=== PATIENT | male | born 1955 | race Caucasian/White ===

== ENCOUNTER 2017-04-06 23:14 | Emergency (ER) | payer MEDICARE, MEDICAID ==
[2017-04-06] MEDS ORDERED: Ondansetron INJ* 2 MG/ML VIAL IV ONE (23:30)
[2017-04-06] MEDS ORDERED: NS 0.9% 1000 ML* 1,000 ML IV ONE (23:30)
--- NOTE | 2017-04-06 23:38 | ED ---
blaire Mensah Timothy, scribed for Julien Cohen MD on 04/06/17 at 2330 . Abdominal Pain/Male - HPI Summary HPI Summary: Kelvin Bush is a 61 yo male presenting to [facility] with 3/10 abd pain with nausea and vomiting 2x since 0 tonight. He denies any diarrhea. He states he had meatloaf for dinner. His MHx includes HTN, depression, anxiety. - History of Current Complaint Chief Complaint: EDAbdPain Stated Complaint: VOMITING Time Seen by Provider: 04/06/17 23:27 Hx Obtained From: Patient Onset/Duration: Sudden Onset, Lasting Hours, Still Present Timing: Constant Severity Initially: Moderate Severity Currently: Moderate Pain Intensity: 3 Pain Scale Used: 0-10 Numeric Location: Diffuse Radiates: No Associated Signs And Symptoms: Positive: Nausea, Vomiting - Allergies/Home Medications Allergies/Adverse Reactions: Allergies Allergy/AdvReac Type Severity Reaction Status Date / Time Dust Mite Extract Allergy Unknown Unknown Verified 02/23/16 17:03 Reaction Details Ondansetron [From Zofran] Allergy Unknown Verified 06/22/16 14:43 Reaction Details PMH/Surg Hx/FS Hx/Imm Hx Cardiovascular History: Reports: Hx Hypertension Psychiatric History: Reports: Hx Anxiety, Hx Depression Infectious Disease History: No Infectious Disease History: Denies: Traveled Outside the [place] in Last 30 Days - Family History Known Family History: Positive: Cardiac Disease, Hypertension Negative: Diabetes - Social History Alcohol Use: None Hx Substance Use: No Substance Use Type: Reports: None Hx Tobacco Use: No Smoking Status (MU): Never Smoked Tobacco Review of Systems Constitutional: Negative Eyes: Negative ENT: Negative Cardiovascular: Negative Respiratory: Negative Positive: Abdominal Pain, Vomiting, Nausea Genitourinary: Negative Musculoskeletal: Negative Skin: Negative Neurological: Negative Psychological: Normal All Other Systems Reviewed And Are Negative: Yes Physical Exam Triage Information Reviewed: Yes Vital Signs On Initial Exam: Initial Vitals Temp Pulse Resp BP Pulse Ox 98.8 F 75 18 133/69 95 04/06/17 23:21 04/06/17 23:21 04/06/17 23:21 04/06/17 23:21 04/06/17 23:21 Vital Signs Reviewed: Yes Appearance: Positive: Well-Appearing, No Pain Distress Skin: Positive: Warm Head/Face: Positive: Normal Head/Face Inspection ENT: Positive: Hearing grossly normal Neck: Positive: Supple Respiratory/Lung Sounds: Positive: Clear to Auscultation, Breath Sounds Present Cardiovascular: Positive: RRR Abdomen Description: Positive: Nontender, Soft. Negative: Distended, Guarding Bowel Sounds: Positive: Present Neurological: Positive: Alert, Oriented to Person Place, Time Psychiatric: Positive: Affect/Mood Appropriate - Ne Coma Scale Coma Scale Total: 15 Diagnostics - Vital Signs Vital Signs Temp Pulse Resp BP Pulse Ox 04/06/17 23:23 98.8 F 75 18 133/69 95 04/06/17 23:21 98.8 F 75 18 133/69 95 - Laboratory Result Diagrams: 04/06/17 23:45 04/06/17 23:45 Lab Statement: Any lab studies that have been ordered have been reviewed, and results considered in the medical decision making process. Re-Evaluation - Re-Evaluation First Eval Change: Improved Abdominal Pain Fem Course/Dx - Course Assessment/Plan: Kelvin Bush is a 61 yo male presenting to [facility] with 3/10 abd pain, N/Vx2 since 2229 today. Pt medication list reviewed this visit. After clinical examination and review of his lab studies, he will be discharged home with nausea and abdominal pain with appropriate instuctions. - Diagnoses Differential Diagnosis/HQI/PQRI: Other - nausea, abd pain Provider Diagnoses: Nausea, Abdominal pain Discharge - Discharge Plan Condition: Stable Disposition: HOME Patient Education Materials: Acute Nausea and Vomiting (ED), Abdominal Pain (ED ) Referrals: Jeanmarie Nesbitt MD [Primary Care Provider] - 2 Days Additional Instructions: Please follow up with your primary care physician regarding your visit to the emergency department today. Return to the emergency department with any new 0or recurring symptoms. The documentation as recorded by the blaire hilliard Timothy accurately reflects the service I personally performed and the decisions made by me, Julien Cohen MD.
[2017-04-06 23:54] LABS: Hematocrit 40 % (42-52); Hemoglobin 13.7 g/dl (14.0-18.0); Mean Corpuscular HGB Conc 34 g/dl (31-36); Mean Corpuscular Hemoglobin 31 pg (27-31); Mean Corpuscular Volume 91 fL (80-94); Mean Platelet Volume 7 um3 (7.4-10.4); Red Blood Count 4.41 10^6/ul (4.0-5.4); Red Cell Distribution Width 15 % (10.5-15); White Blood Count 7.7 10^3/ul (3.5-10.8)
[2017-04-07 00:09] LABS: ALT 14 U/L (7-52); Albumin 3.7 g/dL (3.2-5.2); Alkaline Phosphatase 98 U/L (34-104); BUN/Creatinine Ratio 23.8 (8-20); Blood Urea Nitrogen 20 mg/dL (6-24); C Reactive Protein 12.94 mg/L (< 5.00); CO2 Carbon Dioxide 26 mmol/L (22-32); Calcium 8.9 mg/dL (8.6-10.3); Chloride 103 mmol/L (101-111); EGFR African American 119.1 (>60); EGFR Non-African American 92.6 (>60); Globulin 2.8 g/dL (2-4); Glucose 116 mg/dL (70-100); Sodium 136 mmol/L (133-145); Total Protein 6.5 g/dL (6.4-8.9)
[2017-04-07 00:13] LABS: Anion Gap 7 mmol/L (2-11)
[2017-04-07 00:38] VITALS: BP 126/50
== END 2017-04-07 00:37 | disposition home or self-care (01) ==
LOC: ED 23:14
DX: R10.84 Generalized abdominal pain (principal); R11.2 Nausea with vomiting, unspecified; I10 Essential (primary) hypertension; F41.9 Anxiety disorder, unspecified; F32.9 Major depressive disorder, single episode, unspecified; Z88.8 Allergy status to other drugs, medicaments and biological substances
CPT/HCPCS: 36415; 80053; 85025; 86140; 96361; 96374; 99283; J2405

== ENCOUNTER 2017-10-01 15:23 | Inpatient (IN) | payer MEDICARE, MEDICAID ==
[2017-10-01] MEDS ORDERED: NS 0.9% 1000 ML* 1,000 ML IV ONE (15:53)
[2017-10-01] MEDS ORDERED: HYDROcodone/ACETAMIN 5-325 MG* 1 TAB PO ONE (16:39)
[2017-10-01 16:55] LABS: ABS Basophils 0 10^3/ul (0-0.2); ABS Eosinophils 0 10^3/ul (0-0.6); ABS Lymphocytes 0.6 10^3/ul (1.0-4.8); ABS Monocytes 0.9 10^3/ul (0-0.8); ABS Neutrophils 12.3 10^3/ul (1.5-7.7); ABS Nucleated RBC 0 10^3/ul; Eosinophil % 0.2 % (0-6); Hematocrit 39 % (42-52); Hemoglobin 13.2 g/dl (14.0-18.0); Lymphocyte % 4.4 % (25-47); Mean Corpuscular HGB Conc 34 g/dl (31-36); Mean Corpuscular Hemoglobin 30 pg (27-31); Mean Corpuscular Volume 89 fL (80-94); Mean Platelet Volume 6 um3 (7.4-10.4); Nucleated Red Blood Cells % 0; Platelet Count 311 10^3/ul (150-450); Red Blood Count 4.44 10^6/ul (4.0-5.4); Red Cell Distribution Width 14 % (10.5-15); White Blood Count 13.9 10^3/ul (3.5-10.8)
[2017-10-01 17:04] LABS: INR 1.1 (0.77-1.02)
[2017-10-01 17:21] LABS: EGFR Non-African American 103.6 (>60)
--- NOTE | 2017-10-01 17:50 | RAD ---
Indication: Pain. Unable to extend knee. Quadriceps tear. Comparison: None. Technique: RIGHT knee: AP, lateral, crosstable lateral views RIGHT knee. Report: Anterior soft tissue swelling with ill-definition along the anterior margin of the extensor mechanism both above and below the patella. Small joint effusion. Negative for fracture or malalignment. Osteoarthritis most prominent at the patellofemoral joint moderately severe. IMPRESSION: 1. Negative for fracture. 2. Soft tissue swelling most prominent along the anterior aspect. 3. Small joint effusion. 4. 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
--- NOTE | 2017-10-01 17:53 | RAD ---
Indication: Fall. RIGHT knee injury. Comparison: August 25, 2014 Technique: Upright AP 1636 hours Report: Clear lungs and pleural spaces. Negative for pneumothorax. Upper normal heart size. Unremarkable central pulmonary vasculature and mediastinal contours. IMPRESSION: No radiographic evidence for traumatic thoracic injury or acute intrathoracic disease.
[2017-10-01] MEDS ORDERED: Prochlorperazine TAB* 10 MG PO PRN (18:16)
[2017-10-01] MEDS ORDERED: Acetaminophen TAB* 325 MG PO PRN (18:16)
[2017-10-01] MEDS ORDERED: Ondansetron ODT TAB* 4 MG PO PRN (18:16)
[2017-10-01] MEDS ORDERED: Docusate CAP* 100 MG PO PRN (18:29)
[2017-10-01] MEDS ORDERED: Senna TAB PO PRN (18:29)
--- NOTE | 2017-10-01 19:12 | ED ---
Phil Mensah Stephanie, scribed for Gasper Mckinley MD on 10/01/17 at 1703 . Lower Extremity - HPI Summary HPI Summary: The pt is a 62 y/o M BIBA to the ED with c/o R knee pain that began 1 week ago. Symptoms include R lower extremity weakness. The pt reports that his leg gave out from under him at 15:00 today. The pt was walking with a walker post- accident with difficulty. He denies tripping or feelings of syncope. The pt denies CP, SOB, difficulty eating and drinking, cough, urinary symptoms, back pain, head trauma, and abd pain. - History of Current Complaint Chief Complaint: EDExtremityLower Stated Complaint: RIGHT KNEE PAIN Time Seen by Provider: 10/01/17 15:38 Hx Obtained From: Patient, Family/[employer]ice [employer] - daughter Mechanism Of Injury: Fall From A Standing Position Onset of Pain: Post Accident Onset/Duration: Still Present Severity Currently: Moderate Pain Intensity: 8 Pain Scale Used: 0-10 Numeric Timing: Constant Location: Is Discrete @ - R knee Associated Signs And Symptoms: Positive: Swelling, Redness, Weakness - R leg, Knee Pain - R. Negative: Syncope, Abdominal Pain, Other - Negative: back pain Aggravating Factor(s): Standing, Ambulation, Movement, Weight Bearing, Stairs Alleviating Factor(s): Rest Able to Bear Weight: No - Allergies/Home Medications Allergies/Adverse Reactions: Allergies Allergy/AdvReac Type Severity Reaction Status Date / Time Dust Mite Extract Allergy Unknown Unknown Verified 02/23/16 17:03 Reaction Details Ondansetron [From Zofran] Allergy Unknown Verified 06/22/16 14:43 Reaction Details Home Medications: Home Medications Acetaminophen TAB* [Tylenol TAB*] 650 mg PO TID PRN 10/01/17 [History Confirmed 10/01/17] HYDROcodone/ACETAMIN 5-325 MG* [[place] 5-325 TAB*] 1 tab PO Q4H PRN 10/01/17 [ History Confirmed 10/01/17] Metoprolol Succinate XL TAB* [Toprol XL TAB*] 50 mg PO QAM 10/01/17 [History Confirmed 10/01/17] Metoprolol Succinate XL TAB* [Toprol XL TAB*] 100 mg PO BEDTIME 10/01/17 [ History Confirmed 10/01/17] Ranitidine TAB (NF) [Zantac TAB (NF)] 150 mg PO BEDTIME 10/01/17 [History Confirmed 10/01/17] carBAMazepine TAB(*) [TEGretol TAB(*)] 200 mg PO BEDTIME 10/01/17 [History Confirmed 10/01/17] PMH/Surg Hx/FS Hx/Imm Hx Cardiovascular History: Reports: Hx Hypertension Opthamlomology History: Denies: Hx Legally Blind EENT History: Denies: Hx Deafness Psychiatric History: Reports: Hx Anxiety, Hx Depression - Surgical History Surgery Procedure, Year, and Place: Right hip replacement 6 years ago Infectious Disease History: No Infectious Disease History: Denies: Traveled Outside the [place] in Last 30 Days - Family History Known Family History: Positive: Cardiac Disease, Hypertension Negative: Diabetes - Social History Occupation: Unemployed Lives: Jail Alcohol Use: None Hx Substance Use: No Substance Use Type: Reports: None Hx Tobacco Use: No Smoking Status (MU): Never Smoked Tobacco Review of Systems Negative: Fever, Other - Negative: difficulty eating/ drinking Negative: Chest Pain Negative: Shortness Of Breath, Cough Negative: Abdominal Pain Positive: no symptoms reported Positive: Edema - R knee, Other - R lower extremity ecchymosis. Negative: back pain, head trauma Positive: Weakness - R lower extremity weakness All Other Systems Reviewed And Are Negative: Yes Physical Exam - Summary Physical Exam Summary: General: well-appearing, mild pain distress Skin: warm, color reflects adequate perfusion, dry Head: normal Eyes: EOMI, MATTHEW ENT: normal Neck: supple, nontender Respiratory: CTA, breath sounds present Cardiovascular: RRR Abdomen: soft, nontender Bowel: present Musculoskeletal: Pt has good plantar and dorsiflexion of foot and ankle. He has good flexion and extension of R hip. Pt has flexion of R knee but not extension of R knee. Edema and ecchymosis of R knee. Neurological: normal, sensory/motor intact, A&O x3 Psychological: affect/mood appropriate Triage Information Reviewed: Yes Vital Signs On Initial Exam: Initial Vitals Temp Pulse Resp BP Pulse Ox 98.7 F 79 18 138/78 96 10/01/17 15:39 10/01/17 15:39 10/01/17 15:39 10/01/17 15:39 10/01/17 15:39 Vital Signs Reviewed: Yes Diagnostics - Vital Signs Vital Signs Temp Pulse Resp BP Pulse Ox 10/01/17 16:33 97 10/01/17 15:39 98.7 F 79 18 138/78 96 - Laboratory Lab Results: Lab Results 10/01/17 Range/Units 16:45 WBC 13.9 H (3.5-10.8) 10^3/ul RBC 4.44 (4.0-5.4) 10^6/ul Hgb 13.2 L (14.0-18.0) g/dl Hct 39 L (42-52) % MCV 89 (80-94) fL MCH 30 (27-31) pg MCHC 34 (31-36) g/dl RDW 14 (10.5-15) % Plt Count 311 (150-450) 10^3/ul MPV 6 L (7.4-10.4) um3 Neut % (Auto) 88.6 H (38-83) % Lymph % (Auto) 4.4 L (25-47) % Walton % (Auto) 6.6 (1-9) % Eos % (Auto) 0.2 (0-6) % Baso % (Auto) 0.2 (0-2) % Absolute Neuts (auto) 12.3 H (1.5-7.7) 10^3/ul Absolute Lymphs (auto) 0.6 L (1.0-4.8) 10^3/ul Absolute Monos (auto) 0.9 H (0-0.8) 10^3/ul Absolute Eos (auto) 0 (0-0.6) 10^3/ul Absolute Basos (auto) 0 (0-0.2) 10^3/ul Absolute Nucleated RBC 0 10^3/ul Nucleated RBC % 0 Result Diagrams: 10/01/17 16:45 10/01/17 16:45 Lab Statement: Any lab studies that have been ordered have been reviewed, and results considered in the medical decision making process. - Radiology CXR Xray Interpretation: No Acute Changes Radiology Interpretation Completed By: Radiologist - No radiographic evidence for traumatic thoracic injury or acute intrathoracic disease. Knee XRay Xray Interpretation: Positive (See Comments) Radiology Interpretation Completed By: Radiologist - 1. Negative for fracture. 2. Soft tissue swelling most prominent along the anterior aspect. 3. Small joint effusion. 4. 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 - EKG 16:02 EKG Rhythm: Sinus Rhythm - [address] Segment: Normal Ectopy: None EKG Interpretation: Normal EKG Lower Extremity Course/Dx - Course Course Of Treatment: Medications reviewed. ADMIT HOSPITALIST - Diagnoses Provider Diagnoses: Right leg weakness Discharge - Discharge Plan Condition: Stable Disposition: ADMITTED TO [facility] Referrals: Jeanmarie Nesbitt MD [Primary Care Provider] - The documentation as recorded by the Phil hilliard Stephanie accurately reflects the service I personally performed and the decisions made by me, Gasper Mckinley MD.
--- NOTE | 2017-10-01 19:12 | RAD ---
Indication: Injury with severe pain and weakness. Unable to extend knee. Clinical quadriceps tendon tear. Assess for associated injuries. Comparison: Radiographs of the same date. Technique: [employer] 1.5 Mell [id number] with GEM suite. Noncontrast MRI RIGHT knee. Report: Moderate joint effusion without visualized fat fluid level. Negative for popliteal cyst. Complete quadriceps tendon tear with patella baja/laxity of the patellar tendon and up to 2.5 cm proximal retraction of the quadriceps tendon. Associated extensive subcutaneous edema and interstitial edema within the distal quadriceps musculature. No loculated soft tissue hematoma evident. Normal femoral tibial alignment. Negative for osseous contusion, fracture, avascular necrosis, or suspicious osseous lesions. No significant abnormality of the hyaline articular cartilage. Mild linear increased signal at the posterior horn and junction of the posterior horn and body of the medial meniscus consistent with intrasubstance degeneration without evidence for a discrete meniscal tear at this time. Intact lateral meniscus. Intact medial collateral ligament, lateral collateral ligament complex, as well as the anterior and posterior cruciate ligaments. IMPRESSION: 1. Complete quadriceps tendon tear with retraction. 2. Negative for fracture. 3. Grade 2 signal posterior horn and junction posterior horn and body of the medial meniscus consistent with degeneration without evidence for discrete meniscal tear.
[2017-10-01] MEDS ORDERED: Morphine INJ* 4 MG/ML 1 ML CARPUJECT IV PRN (19:35)
--- NOTE | 2017-10-01 20:41 | RAD ---
INDICATION: RIGHT lower extremity edema. COMPARISON: No relevant prior exams available on the [facility] for comparison. TECHNIQUE: Steward scale, color Doppler, and spectral analysis of the deep veins of the RIGHT lower extremity. Vessel compression, phasicity, and augmentation assessed. REPORT: The RIGHT common femoral, great saphenous, profunda femoral, femoral, popliteal, peroneal, and posterior tibial veins are patent. Patency of the LEFT common femoral vein documented. IMPRESSION: No evidence for RIGHT lower extremity deep venous thrombosis.
--- NOTE | 2017-10-01 21:18 | HP ---
HISTORY AND PHYSICAL: DATE OF ADMISSION: 10/01/17 ATTENDING: Sahil Sotelo MD CHIEF COMPLAINT: Right knee pain. HISTORY OF PRESENT ILLNESS: Briefly, Kelvin Bush is a 62-year-old male who had an unknown injury about a week ago where he had difficulty with his knee. He saw Dr. Sutherland in [place], who was conc erned for a quadriceps rupture. He saw him today as he was leaving and getting back into his house, he fell and it was unable to weight bear. Today, he is brought to the ER. He was supposed to have a n MRI on Wednesday and be treated by the [facility] at some point next week with a followup sal eduled for next week. He denies any numbness or tingling. He is not entirely sure what his mechanis m of injury was for the original time. He does know that he had a previous right hip replacement whi ch he did very well with and needs one on his left side, but has been delaying. He states that he ma y have hyperextended it, although he is not entirely sure. He denies any numbness or tingling. No f davy or chills. Much of the history is obtained by his sister who is his healthcare proxy. 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 PAST MEDICAL HISTORY: Significant for: 1. Mild mental retardation. 2. Obesity. 3. Anxiety. 4. Benign prostatic hypertrophy. 5. Hypertension. 6. Impulse control disorder. 7. He has iron-deficient anemia, responded to B12 injections. PAST SURGICAL HISTORY: Significant for hip replacement in 1999 on the right side as well as possible tonsillectomy and right ankle surgery at some point when he was young child. MEDICATIONS: He is currently on [place] and normal saline. Previous medications include: 1. Toprol. 2. Zyprexa. 3. Tegretol. 4. Prozac. 5. Vistaril. ALLERGIES: DUST, ZOFRAN. SOCIAL HISTORY: He lives in a senior care. He lives on the third floor. He does not have an [employer] equipment at home. He has a sister that lives locally who is able to supply most of his history. Both parents are . He is nonsmoker and nondrinker. PHYSICAL EXAMINATION GENERAL: He is in no acute distress. He is well developed, well nourished. He is alert and oriente d x3. He has pleasant mood and normal affect. VITAL SIGNS: Temperature of 98.7, pulse is 79, oxygen of 96% on room air, blood pressure of 138/78. MUSCULOSKELETAL: Examination of the right knee demonstrates bruising about the superior aspect of th e patella. The skin is intact. There is no obvious palpable defect. He is unable to extend his leg . He does have scratches and excoriation distally on the legs. His calf is soft and nontender. He is sensate to light touch about the first dorsal web space, mediolateral, dorsal and plantar foot. H anahi has a 2+ PT pulse. He is able to flex and extend his toes. He can dorsiflex and plantarflex his a nkle. DIAGNOSTIC STUDIES/LAB DATA: Labs obtained today demonstrate white blood cell count of 13.9, hemato crit of 39, platelet count of 311. Chemistries are pending. INR, lactic acid, lipase, CRP, BMP are a ll pending. X-rays were reviewed, they demonstrated no fracture or dislocation. He has mild osteoarthritis. The re appears to be defect to the quadriceps tendon at the proximal pole of the patella, but no fracture or dislocation. At this point, the remainder of the labs are pending. ASSESSMENT AND PLAN: He has a right quadriceps tendon rupture. He is unable to go home due to the f acility he lives in and they are not able to accommodate him if he cannot walk. I do think he has a quadriceps rupture based on the exam, but he had a second injury and fell and landed and he was unabl e to standup or weight bear. At this point, I am concerned and I would like to obtain any further adalid ging. We will obtain an MRI of the knee today. We will plan for surgical treatment tomorrow. I hav e consulted the hospitalist team to see if they are able to admit him versus co-manage him. He will likely need to be discharged to a fpc facility versus PMRU. Risks and benefits were disc ussed at length and included, but are not limited to bleeding, infection, damage to nerves, vessels, surrounding structures, wound nonhealing, persistent pain, need for further surgery, scarring, stiffn ess, incomplete release of symptoms and risks with anesthesia. We will plan for surgery tomorrow. H e will be n.p.o. after midnight. [id number]/[facility] #: [id number]
[2017-10-01] MEDS: OLANzapine TAB* 5 MG PO SCH (21:32)
[2017-10-01] MEDS: Metoprolol Succinate XL TAB* 100 MG PO SCH (21:32)
[2017-10-01] MEDS: Famotidine TAB* 20 MG PO SCH (21:33)
[2017-10-01] MEDS: carBAMazepine TAB(*) 200 MG PO SCH (21:33)
[2017-10-01] MEDS: NS 0.9% 1000 ML* 1,000 ML IV SCH (21:40)
[2017-10-01] MEDS ORDERED: Heparin VIAL(*) 5000 UNITS/ML VIAL (FIVE THOUSAND) SUBCUT SCH (22:00)
[2017-10-02 00:37] LABS: Urine Appearance Cloudy; Urine Blood Negative (Negative); Urine Color Yellow; Urine Ketones 1+ (Negative); Urine Protein 1+(30 mg/dL) (Negative); Urine Specific Gravity 1.032 (1.010-1.030); Urine Urobilinogen Negative (Negative)
--- NOTE | 2017-10-02 00:46 | HP ---
CC: Jeanmarie Nesbitt MD * HISTORY AND PHYSICAL: DATE OF ADMISSION: 10/01/17 ATTENDING PHYSICIAN: Ely Hernandes MD * (as dictated by Tiera Castillo NP) CONSULTING PHYSICIAN: Sahil Sotelo MD, Orthopedic Surgery. PRIMARY CARE PROVIDER: Jeanmarie Nesbitt MD CHIEF COMPLAINT: Fall. HISTORY OF PRESENT ILLNESS: This is a 62-year-old male patient who resides at [facility]. Mr. Bush apparently has had an ongoing issue with his right lower extremity. He has a history of previous right hip replacement and is now in need of a left hip replacement due to osteoarthritis. It was thought that due to compensation movements, the patient has been overusing his right leg and subsequent right knee pain. He was seen at [place] by Dr. Sutherland who had concern for potential quadriceps tendon rupture. I recommended that the patient have a MRI of the extremity as an outpatient. He also recommended the patient pursue the left hip replacement as well. Unfortunately, this morning on 10/01/17, the patient had a fall at the facility and the staff was unable to help the patient up, he was unable to get up without assistance. He has been complaining of persistent right knee pain for over a week and the leg suddenly gave out underneath him this afternoon. He denies tripping, lightheadedness, dizziness or prodrome. He simply reports that his legs gave out. He denies any recent fever, chills, cold or flu symptoms, chest pain, trouble breathing. He denies any abdominal pain, nausea, vomiting, diarrhea or dysuria. He denies any head back, or any neck trauma. History was obtained from patient, the patient's sister and the ER physician. PAST MEDICAL HISTORY: Significant for: 1. Hypertension. 2. Impulse control disorder. 3. Mental retardation. 4. History of iron deficiency anemia. 5. Anxiety. 6. BPH. HOME MEDICATIONS: 1. Ralston 5-325 mg 1 tab q.4 hours p.r.n. 2. Tegretol 200 mg q.a.m. and 200 mg at bedtime. 3. Ranitidine 150 mg at bedtime. 4. Hydroxyzine 25 mg 4 times a day p.r.n. anxiety. 5. Prochlorperazine 10 mg q.6 hours p.r.n. 6. Cyanocobalamin 1000 mcg daily. 7. Acetaminophen 650 mg t.i.d. p.r.n. 8. Metoprolol succinate XL 50 mg q.a.m. and 100 mg at bedtime. 9. Olanzapine 5 mg b.i.d. 10. Fluoxetine 40 mg daily. ALLERGIES: Include DUST and ONDANSETRON. ONDANSETRON is not a true allergy, but has been not recommended for the patient secondary to medication interactions with his psychiatric medications. FAMILY HISTORY: His sister provides and states that his mother of multiple myeloma. His father from a CVA. SOCIAL HISTORY: The patient denies tobacco, alcohol or illicit drug use. He resides at [facility]. His sister, Meghna Kapoor, is his healthcare proxy, at emergency contact she can be reached at [phone]. REVIEW OF SYSTEMS: As per HPI. All others not mentioned in the HPI are negative. PHYSICAL EXAMINATION GENERAL: This is a pleasant older male patient who is lying in bed in no acute distress at this time. VITAL SIGNS: Temperature 98.7, pulse rate 97, respiratory rate 20, blood pressure 123/65, O2 saturation 97% on room air. HEENT: Head is atraumatic and normocephalic. Pupils are equal, round, and reactive to light. Extraocular movements are intact. Oral mucosa is moist. NECK: Supple. No lymphadenopathy appreciated. No tenderness noted with palpation. The patient has full range of motion. LUNGS: Clear to auscultation. CARDIAC: S1 and S2, heart sounds. Regular rate and rhythm. No murmurs, rubs, or gallops. ABDOMEN: Soft, nontender, nondistended. Bowel sounds are normoactive. MUSCULOSKELETAL: No clubbing or cyanosis. The patient is able to dorsiflex both foot and ankle and has good flexion and extension of the bilateral hips. The patient is able to flex the right knee but not extend the right knee. There is significant edema and ecchymosis of the right knee and right lower leg edema as well. NEURO: Sensation and movement is intact. Cranial nerves II through XII are grossly intact. The patient has no focal deficits. PSYCH: Affect is appropriate. DIAGNOSTIC STUDIES/LAB DATA: CBC: WBC 13.9, hemoglobin 13.2, hematocrit 39, platelet count 311,000. INR 1.10. D-dimer 553. CMP: Sodium 133, potassium 3.8, chloride 99, carbon dioxide 27, BUN 15, creatinine 0.76, glucose 120, calcium 8.8, magnesium 2.0. Total bilirubin 0.4, AST 11, ALT 9, alk phos 93. Troponin 0.01. CRP 98.52. BNP 51. Albumin 3.6, lipase is 17. TSH 2.86. Chest x-ray, no radiographic evidence for traumatic thoracic injury or acute intrathoracic disease. EKG shows sinus rhythm with probable left atrial enlargement and no significant ST or T wave inversions to suggest ischemia. Knee x-ray, impression: Negative for fracture. Soft tissue swelling most prominent along the anterior aspect, small joint effusion. Osteoarthritis moderately seen at the patellofemoral joint. Knee MRI of the right knee shows complete quadriceps tendon tear with retraction, negative for fracture and grade 2 signal posterior horn posterior horn and body of the medial meniscus consistent with degeneration with evidence for discrete meniscal tear. Old medical records were reviewed. ASSESSMENT: This is a 62-year-old male patient who presents today after a fall with concern for persistent right knee pain and is found to have a complete quadriceps tendon tear of the right lower extremity. PLAN: 1. Right quadriceps tendon tear. The patient has been seen by Orthopedics in the ER. We will make him n.p.o. after midnight for planned surgery in the morning, time is not yet known. He will receive 1 dose of subcu heparin tonight and that will be held in anticipation for surgery. In terms of preoperative clearance, the patient does not carry any ischemic heart disease history, but he does have heart failure history, he is not diabetic, he has no previous history of stroke or renal disease. His RCRI score is 0, which carries a 0.4% risk of perioperative cardiac events. His only history is significant with hypertension. The patient does have intellectual and developmental disorders, but with the help of family, is able to understand the necessity of surgery. His sister, Meghna, will be available to help with consent and any review of the plan of care. At this point in time, there is no other testing or immediate concern and the patient is medically optimized for surgery. In the interim period, the patient will be on bed rest. We also obtained a Doppler of the lower extremity as it is swollen and he does carry a risk for deep venous thrombosis. Additionally, we will manage him with pain medications. He has received good pain control with the Vicodin, which we will continue. I will also add p.r.n. morphine should the Ralston not be enough. 2. History of hypertension. Continue home metoprolol. 3. History of iron deficiency anemia. Continue vitamin B12. The patient is no longer on ferrous sulfate. 4. History of impulse control disorder and mental retardation. Continue Tegretol, olanzapine. 5. History of anxiety. Continue hydroxyzine p.r.n., continue fluoxetine. 6. FEN. The patient was ordered heart healthy diet. He will be n.p.o. after midnight. He is ordered IV fluids. 7. DVT prophylaxis. He is ordered subcu heparin until after surgery and also he is ordered SCDs. 8. Code status. He is a full code. TIME SPENT: Approximately 60 minutes was spent on this admission, more than half of that time was spent [id number] with the patient and family obtaining history and physical, performing the physical examination, and reviewing the plan of care. Plan of care was also reviewed with my attending, Dr. Hernandes, who is in agreement. TIERA CASTILLO NP [id number]/[facility] #: [id number] ESTHELA
[2017-10-02 05:57] LABS: ABS Basophils 0 10^3/ul (0-0.2); ABS Eosinophils 0.1 10^3/ul (0-0.6); ABS Lymphocytes 1.3 10^3/ul (1.0-4.8); ABS Monocytes 0.9 10^3/ul (0-0.8); ABS Neutrophils 7.8 10^3/ul (1.5-7.7); ABS Nucleated RBC 0 10^3/ul; Eosinophil % 1.4 % (0-6); Hematocrit 37 % (42-52); Hemoglobin 12.2 g/dl (14.0-18.0); Lymphocyte % 12.9 % (25-47); Mean Corpuscular HGB Conc 33 g/dl (31-36); Mean Corpuscular Hemoglobin 30 pg (27-31); Mean Corpuscular Volume 90 fL (80-94); Mean Platelet Volume 6 um3 (7.4-10.4); Nucleated Red Blood Cells % 0; Platelet Count 278 10^3/ul (150-450); Red Blood Count 4.07 10^6/ul (4.0-5.4); Red Cell Distribution Width 14 % (10.5-15); White Blood Count 10.2 10^3/ul (3.5-10.8)
[2017-10-02 06:30] LABS: EGFR Non-African American 117.8 (>60)
[2017-10-02] MEDS: NS 0.9% 1000 ML* 1,000 ML IV SCH (07:50)
[2017-10-02] MEDS: Cyanocobalamin TAB* 500 MCG PO SCH ×2 (09:49→11:15)
[2017-10-02] MEDS: carBAMazepine TAB(*) 200 MG PO SCH ×3 (09:49→20:36)
[2017-10-02] MEDS: OLANzapine TAB* 5 MG PO SCH ×3 (09:50→20:35)
[2017-10-02] MEDS: Metoprolol Succinate XL TAB* 50 MG PO SCH ×2 (09:50→11:15)
[2017-10-02] MEDS: FLUoxetine CAP* 20 MG PO SCH ×2 (09:50→11:16)
--- NOTE | 2017-10-02 16:44 | PN ---
Subjective Date of Service: 10/02/17 Interval History: No pain. Good appetite. Nl BM today. No new c/o. Objective Active Medications: Acetaminophen (Tylenol Tab*) 650 mg PO TID PRN PRN Reason: PAIN Hydrocodone Bitart/Acetaminophen ([place] 5-325 Tab*) 1 tab PO Q4H PRN PRN Reason: PAIN Carbamazepine (Tegretol Tab(*)) 200 mg PO BEDTIME [facility] Last Admin: 10/01/17 21:33 Dose: 200 mg Carbamazepine (Tegretol Tab(*)) 200 mg PO QAM [facility] Last Admin: 10/02/17 11:19 Dose: 200 mg Cyanocobalamin (Vitamin B12 Tab*) 1,000 mcg PO DAILY [facility] Last Admin: 10/02/17 11:15 Dose: 1,000 mcg Docusate Sodium (Colace Cap*) 100 mg PO BID PRN PRN Reason: CONSTIPATION Famotidine (Pepcid Tab*) 20 mg PO BEDTIME [facility] PRN Reason: Protocol Last Admin: 10/01/17 21:33 Dose: 20 mg Fluoxetine HCl (Prozac Cap*) 40 mg PO DAILY [facility] Last Admin: 10/02/17 11:16 Dose: 40 mg Hydroxyzine HCl (Atarax Tab*) 25 mg PO QID PRN PRN Reason: ANXIETY Sodium Chloride (Ns 0.9% 1000 Ml*) 1,000 mls @ 100 mls/hr IV PER RATE [facility] Last Admin: 10/02/17 07:50 Dose: 100 mls/hr Metoprolol Succinate (Toprol Xl Tab*) 50 mg PO QAM [facility] Last Admin: 10/02/17 11:15 Dose: 50 mg Metoprolol Succinate (Toprol Xl Tab*) 100 mg PO BEDTIME [facility] Last Admin: 10/01/17 21:32 Dose: 100 mg Morphine Sulfate (Morphine Inj (Syringe)*) 4 mg IV Q4H PRN PRN Reason: PAIN Olanzapine (Zyprexa Tab*) 5 mg PO BID [facility] Last Admin: 10/02/17 11:19 Dose: 5 mg Prochlorperazine (Compazine Tab*) 10 mg PO Q6H PRN PRN Reason: NAUSEA Senna (Senokot Tab*) 2 tab PO BEDTIME PRN PRN Reason: CONSTIPATION Vital Signs - 8 hr 10/02/17 10/02/17 11:31 15:11 Temperature 97.5 F 99.4 F Pulse Rate 84 85 Respiratory 20 18 Rate Blood Pressure 140/73 111/64 (mmHg) O2 Sat by Pulse 97 95 Oximetry Oxygen Devices in Use Now: None Appearance: Alert, supine in bed. Knee immobilizer in place. In good spirits. Looks comfortable. Eyes: No Scleral Icterus Respiratory: Symmetrical Chest Expansion and Respiratory Effort, Clear to Auscultation, Clear to Percussion Cardiovascular: NL Sounds; No Murmurs; No JVD, RRR, No Edema, - Extremities: No Edema, No Clubbing, Cyanosis, - - R knee immobilizer in place Skin: No Rash or Ulcers, No Nodules or Sclerosis, - Neurological: Alert and Oriented x 3, NL Sensation Result Diagrams: 10/02/17 05:39 10/02/17 05:48 Additional Lab and Data: Lab Results 10/01/17 Range/Units 16:45 WBC 13.9 H (3.5-10.8) 10^3/ul RBC 4.44 (4.0-5.4) 10^6/ul Hgb 13.2 L (14.0-18.0) g/dl Hct 39 L (42-52) % MCV 89 (80-94) fL MCH 30 (27-31) pg MCHC 34 (31-36) g/dl RDW 14 (10.5-15) % Plt Count 311 (150-450) 10^3/ul MPV 6 L (7.4-10.4) um3 Neut % (Auto) 88.6 H (38-83) % Lymph % (Auto) 4.4 L (25-47) % [place] % (Auto) 6.6 (1-9) % Eos % (Auto) 0.2 (0-6) % Baso % (Auto) 0.2 (0-2) % Absolute Neuts (auto) 12.3 H (1.5-7.7) 10^3/ul Absolute Lymphs (auto) 0.6 L (1.0-4.8) 10^3/ul Absolute Monos (auto) 0.9 H (0-0.8) 10^3/ul Absolute Eos (auto) 0 (0-0.6) 10^3/ul Absolute Basos (auto) 0 (0-0.2) 10^3/ul Absolute Nucleated RBC 0 10^3/ul Nucleated RBC % 0 Assess/Plan/Problems-Billing Assessment: - Patient Problems (1) Rupture of right quadriceps tendon Current Visit: Yes Status: Acute Code(s): S76.111A - STRAIN OF RIGHT QUADRICEPS MUSCLE, FASCIA AND TENDON, INIT SNOMED Code(s): 7341970 Comment: Complete tear with retraction on MRI. Surgery planned for 10/04. No pain with immobilizer in place. (2) Iron deficiency anemia Current Visit: Yes Status: Acute Code(s): D50.9 - IRON DEFICIENCY ANEMIA, UNSPECIFIED SNOMED Code(s): 83870791 Comment: Nearly corrected. FeSO4 ordered. (3) Mental retardation Current Visit: Yes Status: Acute Code(s): F79 - UNSPECIFIED INTELLECTUAL DISABILITIES SNOMED Code(s): 13257969 Comment: With impuls control disorder, ?? other psychiatric dx. Continue his outpt meds. (4) HTN (hypertension) Current Visit: Yes Status: Acute Code(s): I10 - ESSENTIAL (PRIMARY) HYPERTENSION SNOMED Code(s): 14742901 Comment: Continue metoprolol.
[2017-10-02] MEDS: Metoprolol Succinate XL TAB* 100 MG PO SCH (20:35)
[2017-10-02] MEDS: Famotidine TAB* 20 MG PO SCH (20:36)
--- NOTE | 2017-10-02 22:06 | PN ---
Progress Note - Progress Note Date of Service: 10/02/17 SOAP: Subjective: Pt seen and examined at 11 AM. No acute events overnight. Denies SOB, CP. reports leg pain Sister at bedside Objective: Vital Signs 10/02/17 10/02/17 10/02/17 00:08 00:44 03:41 Temperature 98.5 F 99.0 F Pulse Rate 89 93 Respiratory 16 18 16 Rate Blood Pressure 116/58 127/58 (mmHg) O2 Sat by Pulse 95 95 Oximetry 10/02/17 10/02/17 10/02/17 07:33 08:00 11:31 Temperature 98.3 F 97.5 F Pulse Rate 83 84 Respiratory 16 20 20 Rate Blood Pressure 127/70 140/73 (mmHg) O2 Sat by Pulse 95 97 Oximetry 10/02/17 10/02/17 10/02/17 15:11 19:53 20:19 Temperature 99.4 F 98.8 F Pulse Rate 85 97 Respiratory 18 16 17 Rate Blood Pressure 111/64 155/81 (mmHg) O2 Sat by Pulse 95 95 Oximetry NAD. RLE: skin intact. bruising at proximal patella. + effusion. DF/PF ankle. flex/ext toes. SILT grossly distally. 2+ PT MRI with quad tendon rupture no fx Assessment: s/p quad tendon rupture Plan: Due to emergent cases, discussed with pt to delay case to be scheduled wednesday Will plan for PMRU consult for placement may wbat with leg in extension in immobilizer diet as tolerated continue home meds.
[2017-10-03] MEDS: hydrOXYzine HCL TAB* 25 MG PO PRN ×2 (01:21→21:28)
[2017-10-03] MEDS ORDERED: Pneumococcal *Vac Polyvalent 0.5 ML VIAL IM ONE (09:00)
[2017-10-03] MEDS: Ferrous Sulfate TAB* 325 MG PO SCH (09:06)
[2017-10-03] MEDS: Metoprolol Succinate XL TAB* 50 MG PO SCH (09:06)
[2017-10-03] MEDS: FLUoxetine CAP* 20 MG PO SCH (09:06)
[2017-10-03] MEDS: OLANzapine TAB* 5 MG PO SCH ×2 (09:06→21:28)
[2017-10-03] MEDS: carBAMazepine TAB(*) 200 MG PO SCH ×2 (09:06→21:28)
--- NOTE | 2017-10-03 09:28 | PN ---
Progress Note - Progress Note Date of Service: 10/03/17 SOAP: Subjective: Pt doing well. In a good mood today. No complaints Objective: Temp Pulse Resp BP Pulse Ox 98.1 F 78 18 125/84 93 10/03/17 07:30 10/03/17 07:30 10/03/17 07:30 10/03/17 07:30 10/03/17 07:30 NAD. RLE skin intact. able to df/pf ankle. SILT grossly distally. brisk cap refill Assessment: 62 yo with R quad tendon rupture Plan: NPO for surgery tomorrow. 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
--- NOTE | 2017-10-03 14:49 | PN ---
Subjective Date of Service: 10/03/17 Interval History: No c/o. Pain control is good. Objective Active Medications: Acetaminophen (Tylenol Tab*) 650 mg PO TID PRN PRN Reason: PAIN Hydrocodone Bitart/Acetaminophen ([place] 5-325 Tab*) 1 tab PO Q4H PRN PRN Reason: PAIN Carbamazepine (Tegretol Tab(*)) 200 mg PO BEDTIME [facility] Last Admin: 10/02/17 20:36 Dose: 200 mg Carbamazepine (Tegretol Tab(*)) 200 mg PO QAM [facility] Last Admin: 10/03/17 09:06 Dose: 200 mg Docusate Sodium (Colace Cap*) 100 mg PO BID PRN PRN Reason: CONSTIPATION Famotidine (Pepcid Tab*) 20 mg PO BEDTIME [facility] PRN Reason: Protocol Last Admin: 10/02/17 20:36 Dose: 20 mg Ferrous Sulfate (Ferrous Sulfate Tab*) 325 mg PO DAILY [facility] Last Admin: 10/03/17 09:06 Dose: 325 mg Fluoxetine HCl (Prozac Cap*) 40 mg PO DAILY [facility] Last Admin: 10/03/17 09:06 Dose: 40 mg Hydroxyzine HCl (Atarax Tab*) 25 mg PO QID PRN PRN Reason: ANXIETY Last Admin: 10/03/17 01:21 Dose: 25 mg Metoprolol Succinate (Toprol Xl Tab*) 50 mg PO QAM [facility] Last Admin: 10/03/17 09:06 Dose: 50 mg Metoprolol Succinate (Toprol Xl Tab*) 100 mg PO BEDTIME [facility] Last Admin: 10/02/17 20:35 Dose: 100 mg Olanzapine (Zyprexa Tab*) 5 mg PO BID [facility] Last Admin: 10/03/17 09:06 Dose: 5 mg Prochlorperazine (Compazine Tab*) 10 mg PO Q6H PRN PRN Reason: NAUSEA Senna (Senokot Tab*) 2 tab PO BEDTIME PRN PRN Reason: CONSTIPATION Vital Signs - 8 hr 10/03/17 10/03/17 07:30 11:32 Temperature 98.1 F 97.3 F Pulse Rate 78 77 Respiratory 18 15 Rate Blood Pressure 125/84 127/69 (mmHg) O2 Sat by Pulse 93 96 Oximetry Oxygen Devices in Use Now: None Appearance: Alert, supine in bed. In good spirits. Looks comfortable. R knee immobilizer in place. Eyes: No Scleral Icterus Extremities: No Edema, No Clubbing, Cyanosis, - Skin: No Rash or Ulcers, No Nodules or Sclerosis, - Neurological: Alert and Oriented x 3, NL Sensation Result Diagrams: 10/02/17 05:39 10/02/17 05:48 Additional Lab and Data: Lab Results 10/01/17 Range/Units 16:45 WBC 13.9 H (3.5-10.8) 10^3/ul RBC 4.44 (4.0-5.4) 10^6/ul Hgb 13.2 L (14.0-18.0) g/dl Hct 39 L (42-52) % MCV 89 (80-94) fL MCH 30 (27-31) pg MCHC 34 (31-36) g/dl RDW 14 (10.5-15) % Plt Count 311 (150-450) 10^3/ul MPV 6 L (7.4-10.4) um3 Neut % (Auto) 88.6 H (38-83) % Lymph % (Auto) 4.4 L (25-47) % [place] % (Auto) 6.6 (1-9) % Eos % (Auto) 0.2 (0-6) % Baso % (Auto) 0.2 (0-2) % Absolute Neuts (auto) 12.3 H (1.5-7.7) 10^3/ul Absolute Lymphs (auto) 0.6 L (1.0-4.8) 10^3/ul Absolute Monos (auto) 0.9 H (0-0.8) 10^3/ul Absolute Eos (auto) 0 (0-0.6) 10^3/ul Absolute Basos (auto) 0 (0-0.2) 10^3/ul Absolute Nucleated RBC 0 10^3/ul Nucleated RBC % 0 Assess/Plan/Problems-Billing Assessment: - Patient Problems (1) Rupture of right quadriceps tendon Current Visit: Yes Status: Acute Code(s): S76.111A - STRAIN OF RIGHT QUADRICEPS MUSCLE, FASCIA AND TENDON, INIT SNOMED Code(s): 5208512 Comment: Complete tear with retraction on MRI. Surgery planned for 10/04. No pain with immobilizer in place. (2) Iron deficiency anemia Current Visit: Yes Status: Acute Code(s): D50.9 - IRON DEFICIENCY ANEMIA, UNSPECIFIED SNOMED Code(s): 10257617 Comment: Nearly corrected. FeSO4 ordered. (3) Mental retardation Current Visit: Yes Status: Acute Code(s): F79 - UNSPECIFIED INTELLECTUAL DISABILITIES SNOMED Code(s): 66157602 Comment: With impuls control disorder, ?? other psychiatric dx. Continue his outpt meds. (4) HTN (hypertension) Current Visit: Yes Status: Acute Code(s): I10 - ESSENTIAL (PRIMARY) HYPERTENSION SNOMED Code(s): 70261999 Comment: Continue metoprolol.
[2017-10-03] MEDS: Metoprolol Succinate XL TAB* 100 MG PO SCH (21:27)
[2017-10-03] MEDS: Famotidine TAB* 20 MG PO SCH (21:28)
--- NOTE | 2017-10-04 07:17 | PN ---
Progress Note - Progress Note Date of Service: 10/04/17 SOAP: Subjective: H and P update PT seen and examined. NPO. Feeling good. Objective: Temp Pulse Resp BP Pulse Ox 98.7 F 74 18 116/65 95 10/04/17 04:04 10/04/17 04:04 10/04/17 04:04 10/04/17 04:04 10/04/17 04:04 NAD. RLE: skin intact. knee flex. unable to extend. calf soft, nontender. SILT grossly distally. able to df/pf foot. flex/ext toes. 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
[2017-10-04] MEDS: Metoprolol Succinate XL TAB* 50 MG PO SCH (08:00)
[2017-10-04] MEDS: Ferrous Sulfate TAB* 325 MG PO SCH (09:02)
[2017-10-04] MEDS: FLUoxetine CAP* 20 MG PO SCH (09:05)
[2017-10-04] MEDS: OLANzapine TAB* 5 MG PO SCH ×2 (09:05→20:53)
[2017-10-04] MEDS: carBAMazepine TAB(*) 200 MG PO SCH ×2 (09:06→20:54)
[2017-10-04] MEDS ORDERED: Propofol* 10 MG/ML 20 ML BTL IV PUSH ONE (10:59)
[2017-10-04] MEDS ORDERED: fentaNYL* 50 MCG/ML 2 ML VIAL (100 MCG VIAL) ONE ×2 (10:59→11:48)
[2017-10-04] MEDS ORDERED: Midazolam* 1 MG/ML 2 ML VIAL (2 MG) ONE (11:00)
[2017-10-04] MEDS ORDERED: ceFAZolin 2 GM PREMIX (*) 2 GM/50 ML BAG IVPB ONE (11:11)
[2017-10-04] MEDS ORDERED: Bupivacaine 0.5% SDV PF* 10-30ML VIAL ONE ×2 (11:16→11:17)
[2017-10-04] MEDS ORDERED: Dexamethasone IV* 4 MG/ML 1 ML (4 MG) ONE (11:38)
[2017-10-04] MEDS ORDERED: Bupivacaine 0.25% SDV* 30 ML ONE (12:00)
[2017-10-04] MEDS ORDERED: Naloxone* 0.4 MG/ML 1 ML VIAL IV PRN (12:20)
[2017-10-04] MEDS ORDERED: fentaNYL* 50 MCG/ML 2 ML VIAL (100 MCG VIAL) IV PRN (12:20)
[2017-10-04] MEDS ORDERED: HYDROmorphone INJ* 1 MG/ML CARPUJECT SYRINGE IV PRN (12:20)
[2017-10-04] MEDS: HYDROcodone/ACETAMIN 5-325 MG* 1 TAB PO PRN ×2 (14:57→20:54)
[2017-10-04] MEDS: NS 0.9% 1000 ML* 1,000 ML IV SCH (16:12)
--- NOTE | 2017-10-04 16:12 | PN ---
Subjective Date of Service: 10/04/17 Interval History: "I feel great!" He denies pain. Objective Active Medications: Acetaminophen (Tylenol Tab*) 650 mg PO TID PRN PRN Reason: PAIN Hydrocodone Bitart/Acetaminophen ([place] 5-325 Tab*) 1 tab PO Q4H PRN PRN Reason: PAIN Last Admin: 10/04/17 14:57 Dose: 1 tab Carbamazepine (Tegretol Tab(*)) 200 mg PO BEDTIME [facility] Last Admin: 10/03/17 21:28 Dose: 200 mg Carbamazepine (Tegretol Tab(*)) 200 mg PO QAM [facility] Last Admin: 10/04/17 09:06 Dose: 200 mg Docusate Sodium (Colace Cap*) 100 mg PO BID PRN PRN Reason: CONSTIPATION Famotidine (Pepcid Tab*) 20 mg PO BEDTIME [facility] PRN Reason: Protocol Last Admin: 10/03/17 21:28 Dose: 20 mg Ferrous Sulfate (Ferrous Sulfate Tab*) 325 mg PO DAILY [facility] Last Admin: 10/04/17 09:02 Dose: Not Given Fluoxetine HCl (Prozac Cap*) 40 mg PO DAILY [facility] Last Admin: 10/04/17 09:05 Dose: 40 mg Hydroxyzine HCl (Atarax Tab*) 25 mg PO QID PRN PRN Reason: ANXIETY Last Admin: 10/03/17 21:28 Dose: 25 mg Sodium Chloride (Ns 0.9% 1000 Ml*) 1,000 mls @ 100 mls/hr IV PER RATE [facility] Metoprolol Succinate (Toprol Xl Tab*) 50 mg PO QAM [facility] Last Admin: 10/04/17 08:00 Dose: 50 mg Metoprolol Succinate (Toprol Xl Tab*) 100 mg PO BEDTIME [facility] Last Admin: 10/03/17 21:27 Dose: 100 mg Naloxone HCl (Narcan*) 0.08 mg IV Q2M PRN PRN Reason: severe induced resp depression Stop: 10/05/17 04:19 Olanzapine (Zyprexa Tab*) 5 mg PO BID [facility] Last Admin: 10/04/17 09:05 Dose: 5 mg Prochlorperazine (Compazine Tab*) 10 mg PO Q6H PRN PRN Reason: NAUSEA Senna (Senokot Tab*) 2 tab PO BEDTIME PRN PRN Reason: CONSTIPATION Vital Signs - 8 hr 01/08/18 01/08/18 01/08/18 10:08 13:02 13:05 Temperature 99.0 F 97.9 F Pulse Rate 76 72 77 Respiratory 18 20 21 Rate Blood Pressure 126/77 131/66 128/67 (mmHg) O2 Sat by Pulse 98 97 96 Oximetry 10/04/17 10/04/17 10/04/17 13:10 13:15 13:30 Temperature 98.1 F Pulse Rate 70 70 76 Respiratory 18 18 16 Rate Blood Pressure 132/68 133/74 130/70 (mmHg) O2 Sat by Pulse 96 96 97 Oximetry 10/04/17 10/04/17 10/04/17 13:45 14:00 14:13 Temperature 99.1 F Pulse Rate 74 73 72 Respiratory 18 18 16 Rate Blood Pressure 132/62 146/76 147/76 (mmHg) O2 Sat by Pulse 96 96 98 Oximetry 10/04/17 14:57 Temperature Pulse Rate Respiratory 16 Rate Blood Pressure (mmHg) O2 Sat by Pulse Oximetry Oxygen Devices in Use Now: Nasal Cannula Appearance: Alert, sitting up in bed. In good spirits. Looks comfortable. Eyes: No Scleral Icterus Extremities: No Edema, No Clubbing, Cyanosis, - - R leg bandaged, in knee immobilizer Skin: No Rash or Ulcers, No Nodules or Sclerosis, - Neurological: Alert and Oriented x 3, NL Sensation Result Diagrams: 10/02/17 05:39 10/02/17 05:48 Additional Lab and Data: Lab Results 10/01/17 Range/Units 16:45 WBC 13.9 H (3.5-10.8) 10^3/ul RBC 4.44 (4.0-5.4) 10^6/ul Hgb 13.2 L (14.0-18.0) g/dl Hct 39 L (42-52) % MCV 89 (80-94) fL MCH 30 (27-31) pg MCHC 34 (31-36) g/dl RDW 14 (10.5-15) % Plt Count 311 (150-450) 10^3/ul MPV 6 L (7.4-10.4) um3 Neut % (Auto) 88.6 H (38-83) % Lymph % (Auto) 4.4 L (25-47) % [place] % (Auto) 6.6 (1-9) % Eos % (Auto) 0.2 (0-6) % Baso % (Auto) 0.2 (0-2) % Absolute Neuts (auto) 12.3 H (1.5-7.7) 10^3/ul Absolute Lymphs (auto) 0.6 L (1.0-4.8) 10^3/ul Absolute Monos (auto) 0.9 H (0-0.8) 10^3/ul Absolute Eos (auto) 0 (0-0.6) 10^3/ul Absolute Basos (auto) 0 (0-0.2) 10^3/ul Absolute Nucleated RBC 0 10^3/ul Nucleated RBC % 0 Assess/Plan/Problems-Billing Assessment: - Patient Problems (1) Rupture of right quadriceps tendon Current Visit: Yes Status: Acute Code(s): S76.111A - STRAIN OF RIGHT QUADRICEPS MUSCLE, FASCIA AND TENDON, INIT SNOMED Code(s): 4118692 Comment: Complete tear with retraction on MRI. Surgery done 10/04. No pain with immobilizer in place. (2) Iron deficiency anemia Current Visit: Yes Status: Acute Code(s): D50.9 - IRON DEFICIENCY ANEMIA, UNSPECIFIED SNOMED Code(s): 01625356 Comment: Nearly corrected. FeSO4 ordered. (3) Mental retardation Current Visit: Yes Status: Acute Code(s): F79 - UNSPECIFIED INTELLECTUAL DISABILITIES SNOMED Code(s): 16227612 Comment: With impuls control disorder, ?? other psychiatric dx. Continue his outpt meds. (4) HTN (hypertension) Current Visit: Yes Status: Acute Code(s): I10 - ESSENTIAL (PRIMARY) HYPERTENSION SNOMED Code(s): 48619314 Comment: Continue metoprolol.
[2017-10-04] MEDS: Metoprolol Succinate XL TAB* 100 MG PO SCH (20:53)
[2017-10-04] MEDS: Famotidine TAB* 20 MG PO SCH (20:54)
[2017-10-05] MEDS: HYDROcodone/ACETAMIN 5-325 MG* 1 TAB PO PRN ×5 (01:36→20:31)
[2017-10-05] MEDS: NS 0.9% 1000 ML* 1,000 ML IV SCH (01:37)
[2017-10-05] MEDS: Metoprolol Succinate XL TAB* 50 MG PO SCH (09:25)
[2017-10-05] MEDS: OLANzapine TAB* 5 MG PO SCH ×2 (09:26→20:32)
[2017-10-05] MEDS: Ferrous Sulfate TAB* 325 MG PO SCH (09:26)
[2017-10-05] MEDS: FLUoxetine CAP* 20 MG PO SCH (09:26)
[2017-10-05] MEDS: carBAMazepine TAB(*) 200 MG PO SCH ×2 (09:26→20:32)
--- NOTE | 2017-10-05 09:32 | PN ---
Progress Note - Progress Note Date of Service: 10/05/17 SOAP: Subjective: []Patient seen at bedside. He has no RLE pain. Denies CP, SOB, nausea, dizziness. Confirms mild burning with urination. Objective: []General: Well appearing, NAD. RLE: Immobilizer in place. DF/PF intact. 2+ DP/PT. Sensation intact distally. BL LE: calves supple and nontender without erythema, edema or palpable cords. Vital Signs Temp 99.1 F 10/05/17 07:41 Pulse 84 10/05/17 07:41 Resp 18 10/05/17 08:09 BP 157/76 10/05/17 07:41 Pulse Ox 92 10/05/17 07:41 Intake & Output 10/04/17 10/05/17 10/05/17 18:59 06:59 18:59 Intake Total 1150 200 120 Output Total 1125 750 300 Balance 25 -550 -180 Intake: IV Fluids 1050 LR 1000 NS 50ML, Cefazolin 2G 50 Oral 100 200 120 Output: Urine 1025 750 300 Estimated Blood Loss 100 Other: Date of Last Bowel 10/04/17 Movement # Bowel Movements 1 0 Estimated Stool Amount Large Laboratory Last Values WBC 10.2 10^3/ul (3.5-10.8) 10/02/17 05:39 RBC 4.07 10^6/ul (4.0-5.4) 10/02/17 05:39 Hgb 12.2 g/dl (14.0-18.0) L 10/02/17 05:39 Hct 37 % (42-52) L 10/02/17 05:39 MCV 90 fL (80-94) 10/02/17 05:39 MCH 30 pg (27-31) 10/02/17 05:39 MCHC 33 g/dl (31-36) 10/02/17 05:39 RDW 14 % (10.5-15) 10/02/17 05:39 Plt Count 278 10^3/ul (150-450) 10/02/17 05:39 MPV 6 um3 (7.4-10.4) L 10/02/17 05:39 Neut % (Auto) 76.7 % (38-83) 10/02/17 05:39 Lymph % (Auto) 12.9 % (25-47) L 10/02/17 05:39 Terrell % (Auto) 8.8 % (1-9) 10/02/17 05:39 Eos % (Auto) 1.4 % (0-6) 10/02/17 05:39 Baso % (Auto) 0.2 % (0-2) 10/02/17 05:39 Absolute Neuts (auto) 7.8 10^3/ul (1.5-7.7) H 10/02/17 05:39 Absolute Lymphs (auto) 1.3 10^3/ul (1.0-4.8) 10/02/17 05:39 Absolute Monos (auto) 0.9 10^3/ul (0-0.8) H 10/02/17 05:39 Absolute Eos (auto) 0.1 10^3/ul (0-0.6) 10/02/17 05:39 Absolute Basos (auto) 0 10^3/ul (0-0.2) 10/02/17 05:39 Absolute Nucleated RBC 0 10^3/ul 10/02/17 05:39 Nucleated RBC % 0 10/02/17 05:39 INR (Anticoag Therapy) 1.10 (0.77-1.02) H 10/01/17 16:45 APTT 31.7 seconds (26.0-36.3) 10/01/17 16:45 D-Dimer, Quantitative 553 ng/mL (Less Than 230) H 10/01/17 16:45 Sodium 133 mmol/L (133-145) 10/02/17 05:48 Potassium 3.6 mmol/L (3.5-5.0) 10/02/17 05:48 Chloride 104 mmol/L (101-111) 10/02/17 05:48 Carbon Dioxide 23 mmol/L (22-32) 10/02/17 05:48 Anion Gap 6 mmol/L (2-11) 10/02/17 05:48 BUN 14 mg/dL (6-24) 10/02/17 05:48 Creatinine 0.68 mg/dL (0.67-1.17) 10/02/17 05:48 Est GFR ( Amer) 151.5 (>60) 10/02/17 05:48 Est GFR (Non-Af Amer) 117.8 (>60) 10/02/17 05:48 BUN/Creatinine Ratio 20.6 (8-20) H 10/02/17 05:48 Glucose 106 mg/dL (70-100) H 10/02/17 05:48 Lactic Acid 0.5 mmol/L (0.5-2.0) 10/02/17 05:48 Calcium 8.5 mg/dL (8.6-10.3) L 10/02/17 05:48 Magnesium 2.0 mg/dL (1.9-2.7) 10/01/17 16:45 Total Bilirubin 0.40 mg/dL (0.2-1.0) 10/01/17 16:45 AST 11 U/L (13-39) L 10/01/17 16:45 ALT 9 U/L (7-52) 10/01/17 16:45 Alkaline Phosphatase 93 U/L (34-104) 10/01/17 16:45 Troponin I 0.01 ng/mL (<0.04) 10/01/17 16:45 C-Reactive Protein 98.52 mg/L (< 5.00) H 10/01/17 16:45 B-Natriuretic Peptide 51 pg/mL (-100) 10/01/17 16:45 Total Protein 6.4 g/dL (6.4-8.9) 10/01/17 16:45 Albumin 3.6 g/dL (3.2-5.2) 10/01/17 16:45 Globulin 2.8 g/dL (2-4) 10/01/17 16:45 Albumin/Globulin Ratio 1.3 (1-3) 10/01/17 16:45 Lipase 17 U/L (11.0-82.0) 10/01/17 16:45 TSH 2.86 mcIU/mL (0.34-5.60) 10/01/17 16:45 Urine Color Yellow 10/01/17 23:45 Urine Appearance Cloudy 10/01/17 23:45 Urine pH 5.0 (5-9) 10/01/17 23:45 Ur Specific [place] 1.032 (1.010-1.030) H 10/01/17 23:45 Urine Protein 1+(30 mg/dl) (Negative) H 10/01/17 23:45 Urine Ketones 1+ (Negative) H 10/01/17 23:45 Urine Blood Negative (Negative) 10/01/17 23:45 Urine Nitrate Negative (Negative) 10/01/17 23:45 Urine Bilirubin Negative (Negative) 10/01/17 23:45 Urine Urobilinogen Negative (Negative) 10/01/17 23:45 Ur Leukocyte Esterase Negative (Negative) 10/01/17 23:45 Urine WBC (Auto) Trace(0-5/hpf) (Absent) 10/01/17 23:45 Urine RBC (Auto) Trace(0-2/hpf) (Absent) 10/01/17 23:45 Urine Bacteria Absent (Absent) 10/01/17 23:45 Hyaline Casts Present (Absent) H 10/01/17 23:45 Urine Glucose Negative (Negative) 10/01/17 23:45 Assessment: []62 yo M POD 1 s/p R quad tendon rupture repair 10/04/16, Dr Sotelo Plan: WBAT in extension. Immobilizer to remain in place. No straight leg raise and no knee flexion DC to acute rehab as soon as placement allows. Cannot return home until he can walk 3 flights of stairs (months) UA ordered
[2017-10-05 11:29] LABS: Urine Appearance Clear; Urine Blood Negative (Negative); Urine Color Yellow; Urine Ketones Negative (Negative); Urine Protein Negative (Negative); Urine Specific Gravity 1.018 (1.010-1.030); Urine Urobilinogen Negative (Negative)
--- NOTE | 2017-10-05 13:40 | PN ---
Subjective Date of Service: 10/05/17 Interval History: No c/o. Pt states he got into a chair with assist of 2. Objective Active Medications: Acetaminophen (Tylenol Tab*) 650 mg PO TID PRN PRN Reason: PAIN Hydrocodone Bitart/Acetaminophen (Talent 5-325 Tab*) 1 tab PO Q4H PRN PRN Reason: PAIN Last Admin: 10/05/17 10:05 Dose: 1 tab Carbamazepine (Tegretol Tab(*)) 200 mg PO BEDTIME [facility] Last Admin: 10/04/17 20:54 Dose: 200 mg Carbamazepine (Tegretol Tab(*)) 200 mg PO QAM [facility] Last Admin: 10/05/17 09:26 Dose: 200 mg Docusate Sodium (Colace Cap*) 100 mg PO BID PRN PRN Reason: CONSTIPATION Famotidine (Pepcid Tab*) 20 mg PO BEDTIME [facility] PRN Reason: Protocol Last Admin: 10/04/17 20:54 Dose: 20 mg Ferrous Sulfate (Ferrous Sulfate Tab*) 325 mg PO DAILY [facility] Last Admin: 10/05/17 09:26 Dose: 325 mg Fluoxetine HCl (Prozac Cap*) 40 mg PO DAILY [facility] Last Admin: 10/05/17 09:26 Dose: 40 mg Hydroxyzine HCl (Atarax Tab*) 25 mg PO QID PRN PRN Reason: ANXIETY Last Admin: 10/03/17 21:28 Dose: 25 mg Metoprolol Succinate (Toprol Xl Tab*) 50 mg PO QAM [facility] Last Admin: 10/05/17 09:25 Dose: 50 mg Metoprolol Succinate (Toprol Xl Tab*) 100 mg PO BEDTIME [facility] Last Admin: 10/04/17 20:53 Dose: 100 mg Olanzapine (Zyprexa Tab*) 5 mg PO BID [facility] Last Admin: 10/05/17 09:26 Dose: 5 mg Prochlorperazine (Compazine Tab*) 10 mg PO Q6H PRN PRN Reason: NAUSEA Senna (Senokot Tab*) 2 tab PO BEDTIME PRN PRN Reason: CONSTIPATION Vital Signs - 8 hr 10/05/17 10/05/17 10/05/17 05:55 07:41 08:09 Temperature 99.1 F Pulse Rate 84 Respiratory 16 16 18 Rate Blood Pressure 157/76 (mmHg) O2 Sat by Pulse 92 Oximetry 10/05/17 10/05/17 10/05/17 10:05 11:01 12:11 Temperature 99.6 F Pulse Rate 85 Respiratory 18 16 16 Rate Blood Pressure 123/60 (mmHg) O2 Sat by Pulse 97 Oximetry Oxygen Devices in Use Now: None Appearance: Alert, partly up in bed. In good spirits. Looks comfortable. Eyes: No Scleral Icterus Skin: No Rash or Ulcers, No Nodules or Sclerosis, - Neurological: Alert and Oriented x 3, NL Sensation Result Diagrams: 10/02/17 05:39 10/02/17 05:48 Additional Lab and Data: Lab Results 10/01/17 Range/Units 16:45 WBC 13.9 H (3.5-10.8) 10^3/ul RBC 4.44 (4.0-5.4) 10^6/ul Hgb 13.2 L (14.0-18.0) g/dl Hct 39 L (42-52) % MCV 89 (80-94) fL MCH 30 (27-31) pg MCHC 34 (31-36) g/dl RDW 14 (10.5-15) % Plt Count 311 (150-450) 10^3/ul MPV 6 L (7.4-10.4) um3 Neut % (Auto) 88.6 H (38-83) % Lymph % (Auto) 4.4 L (25-47) % [place] % (Auto) 6.6 (1-9) % Eos % (Auto) 0.2 (0-6) % Baso % (Auto) 0.2 (0-2) % Absolute Neuts (auto) 12.3 H (1.5-7.7) 10^3/ul Absolute Lymphs (auto) 0.6 L (1.0-4.8) 10^3/ul Absolute Monos (auto) 0.9 H (0-0.8) 10^3/ul Absolute Eos (auto) 0 (0-0.6) 10^3/ul Absolute Basos (auto) 0 (0-0.2) 10^3/ul Absolute Nucleated RBC 0 10^3/ul Nucleated RBC % 0 Assess/Plan/Problems-Billing Assessment: - Patient Problems (1) Rupture of right quadriceps tendon Current Visit: Yes Status: Acute Code(s): S76.111A - STRAIN OF RIGHT QUADRICEPS MUSCLE, FASCIA AND TENDON, INIT SNOMED Code(s): 0466794 Comment: Complete tear with retraction on MRI. Surgery done 10/04. No pain with immobilizer in place. Continue PT. (2) Iron deficiency anemia Current Visit: Yes Status: Acute Code(s): D50.9 - IRON DEFICIENCY ANEMIA, UNSPECIFIED SNOMED Code(s): 41530494 Comment: Nearly corrected. FeSO4 ordered. (3) Mental retardation Current Visit: Yes Status: Acute Code(s): F79 - UNSPECIFIED INTELLECTUAL DISABILITIES SNOMED Code(s): 68457150 Comment: With impuls control disorder, ?? other psychiatric dx. Continue his outpt meds. (4) HTN (hypertension) Current Visit: Yes Status: Acute Code(s): I10 - ESSENTIAL (PRIMARY) HYPERTENSION SNOMED Code(s): 60849951 Comment: Continue metoprolol.
[2017-10-05] MEDS ORDERED: Enoxaparin(*) 40 MG/0.4 ML SYR SUBCUT SCH (16:00)
[2017-10-05] MEDS: Metoprolol Succinate XL TAB* 100 MG PO SCH (20:32)
[2017-10-05] MEDS: Famotidine TAB* 20 MG PO SCH (20:32)
--- NOTE | 2017-10-06 07:37 | PN ---
Progress Note - Progress Note Date of Service: 10/06/17 SOAP: Subjective: Pt seen and examined. Feels good. Would like to go home. Spiked temp last night with high blood pressure but resolved quickly. Objective: Temp Pulse Resp BP Pulse Ox 99.7 F 76 16 131/66 95 10/06/17 04:08 10/06/17 04:08 10/06/17 04:08 10/06/17 04:08 10/06/17 04:08 NAD. dressing and brace in place. able to DF/PF ankle, flex/ext toes, SILT grossly distally. Brisk cap refill. Assessment: POD#2 R quad tendon repair Plan: WBAT with knee in immobilizer. No flexion of knee may stop DVT ppx when discharged SNF dischaged when bed available. f/u 2 weeks immobilizer at all times dressing change today
[2017-10-06] MEDS: Metoprolol Succinate XL TAB* 50 MG PO SCH (08:32)
[2017-10-06] MEDS: FLUoxetine CAP* 20 MG PO SCH (08:32)
[2017-10-06] MEDS: OLANzapine TAB* 5 MG PO SCH (08:32)
[2017-10-06] MEDS: Ferrous Sulfate TAB* 325 MG PO SCH (08:33)
[2017-10-06] MEDS: carBAMazepine TAB(*) 200 MG PO SCH (08:33)
[2017-10-06 08:46] VITALS: BP 143/72
--- NOTE | 2017-10-06 11:30 | PN ---
Progress Note - Progress Note Date of Service: 10/06/17 Note: Time spent on discharge 35 minutes.
--- NOTE | 2017-10-06 12:24 | TRS ---
CC: Dr. Nesbitt; [facility] * DATE OF ADMISSION: 10/01/2017. DATE OF TRANSFER: 10/06/2017. HISTORY OF PRESENT ILLNESS: This 62-year-old man fell and could not get up. He was found to have a complete rupture of the right quadriceps. He has surgery on 10/04/2017. He had an uneventful postoperative course. I note he has had a right hip replacement and is waiting to have a left hip replacement at some time in the near future. The patient is transferred to [facility] for rehabilitation. DISCHARGE DIAGNOSES: 1. Right quadriceps tendon rupture. 2. Iron deficiency anemia. 3. Mental retardation and impulse control disorder. 4. Hypertension. TRANSFER MEDICATIONS: 1. Ferrous Sulfate 325 mg daily. 2. Senna two at bedtime. 3. Carbamazepine 200 mg daily. 4. Fluoxetine 40 mg daily. 5. Olanzapine 5 mg b.i.d. 6. Prochlorperazine 10 mg every 6 hours prn. 7. Hydroxyzine 25 mg q.i.d. prn. 8. Ranitidine 150 mg at bedtime. 9. Acetaminophen 650 mg t.i.d. prn. 10. Carbamazepine 200 mg at bedtime. 11. Metoprolol Succinate 50 mg in the morning, 100 mg in the evening. 12. Hydrocodone/acetaminophen 5/325 one every 4 hours prn. [id number]/[facility] #: [id number] [facility]
--- NOTE | 2017-10-06 12:54 | PN ---
Progress Note - Progress Note Date of Service: 10/06/17 SOAP: Subjective: []Patient seen at bedside. He feels well and is ready for discharge. Objective: []Gen: NAD. RLE: dressing changed. Incision CDI without erythema or edema. Assessment: POD#2 R quad tendon repair Plan: WBAT with knee in immobilizer. No flexion of knee may stop DVT ppx when discharged SNF discharge when bed available. f/u 2 weeks immobilizer at all times
--- NOTE | 2017-10-07 00:18 | OP ---
CC: PCP, Jeanmarie Nesbitt MD * DATE OF OPERATION: 10/04/17 - ROOM #342 DATE OF : 53 ATTENDING SURGEON: Sahil Sotelo MD. FUNDRAISING DIRECTOR: MICHELLE Boone. ANESTHESIOLOGIST: Dr. Cummings. PRE-OP DIAGNOSIS: Right quadriceps rupture. POST-OP DIAGNOSIS: Right quadriceps rupture. OPERATIVE PROCEDURE: Right quadriceps tendon repair. COMPLICATIONS: None. ESTIMATED BLOOD LOSS: About 50 cc. TOURNIQUET TIME: Zero minutes. IMPLANTS USED: None. INDICATIONS: Kelvin Shi is a 62-year-old male who sustained an injury to his knee within the last 10 days. He was then seen by a physician at [facility] and was diagnosed with a possible quadriceps rupture. When he went home to his [facility], he fell and was unable to weight bear. He was brought to the ER and the [facility] refused to take him back until he had been stabilized. The risks and benefits of the surgery versus nonoperative treatment were discussed at length. He had an MRI that confirmed the quadriceps rupture and demonstrated no fracture. Risks and benefits of surgery were discussed at length and included but are not limited to bleeding, infection, damage to nerves , vessels, surrounding structures, wound nonhealing, persistent pain, need for further surgery, scarring, stiffness, incomplete relief of symptoms, risk of anesthesia, risk of DVT as well as failure. He and his sister have elected to proceed. DESCRIPTION OF PROCEDURE: The patient was greeted in the preoperative area by the attending surgeon. Correct extremity was marked, consent was confirmed. The patient was brought back to the operating suite where he was placed in a supine position on the operating room table. He then underwent general anesthesia and LMA intubation. All bony prominences were padded. His right leg was prepped and draped in usual sterile fashion beginning with chlorhexidine soap, scrub, and alcohol wipe and a final prep with ChloraPrep. After appropriate surgical pause indicating side, site, procedure and administration of antibiotics, a midline incision centered over the distal quads was then made sharply with a 10 blade. Soft tissues were carefully dissected to expose the paratenon, which was incised. There was a large hematoma and obvious retracted tear of the quadriceps. There was evidence of some partial healing and scar tissue. The quadriceps tendon was debrided back and the blood clot was carefully removed as much as possible. The patellar tendon had a small area that had some quadriceps tenderness to the touch, this was debrided. The insertion was also debrided and prepared using Bovie as well as the rongeur to allow for bony bleeding trough. The 3 drill holes were then made from superior and inferior along the patella using a 2-0 dill bit. Care was taken to prevent any damage to the cartilage surface below. Once each drill bit was passed, a passing suture was then placed for later further repair portion. After the 3 drill bits were made, attention was directed to the tendon. The tendon was then debrided and mobilized, after which two #5 Ethibond sutures were passed in a running Krackow fashion to allow for 4 strands. Once these were passed and the tendon was found to be fully approximated and fully mobilized, one strand from the very ends of the sutures were passed through each of far tunnels and then the two strands that were in the middle were passed down the central tunnel in the patella. The appropriate suture was then tied together with tension in the quadriceps with the knee in full extension. These were tied down and secured, one strand was tied to each other as well. The knots were then carefully buried. This allowed for zoroastrian of the quadriceps tendon. The wounds were then copiously irrigated with sterile saline. 0 Vicryl was used to close the portion of the paratenon, # 2 Ethibond and 0 Vicryl were used to close the capsule along the medial and lateral capsule that had been ruptured. Once this had been done, the knee was irrigated one more time. The skin was closed in layers with 2-0 Vicryl subcutaneous closure and russ. Sterile dressings were applied as well as a knee immobilizer. He was awoken from anesthesia and transferred to the PACU in stable condition. POSTOPERATIVE PLAN: He will be weightbearing as tolerated with the brace locked in extension. He is allowed no range of motion of the knee. He will be on DVT prophylaxis while he is admitted in the hospital and likely transferred to a [facility] facility. He will be allowed to do calf pump and weight bear with the leg extending and in an immobilizer. I will see the patient back in 10 to 14 days. He will receive postoperative antibiotics for 24 hours. We will continue to follow him while he is admitted. [id number]/[facility] #: [id number] [facility]
== END 2017-10-06 13:20 | DRG 502 ==
LOC: ED 15:23 → SSU 19:13
PROVIDERS: ADMIT Internal Medicine; ATTEND Internal Medicine
PROC: 0LMQ0ZZ Reattachment of Right Knee Tendon, Open Approach (ICD-10-PCS; principal; 2017-10-04 11:00)
DX: S76.111A Strain of right quadriceps muscle, fascia and tendon, initial encounter (principal); D50.9 Iron deficiency anemia, unspecified; I10 Essential (primary) hypertension; W18.30XA Fall on same level, unspecified, initial encounter; Y92.099 Unspecified place in other non-institutional residence as the place of occurrence of the external cause; F79 Unspecified intellectual disabilities; F63.9 Impulse disorder, unspecified; F41.9 Anxiety disorder, unspecified; N40.0 Benign prostatic hyperplasia without lower urinary tract symptoms; Z96.641 Presence of right artificial hip joint; Z79.1 Long term (current) use of non-steroidal anti-inflammatories (NSAID); Z79.899 Other long term (current) drug therapy; Z88.8 Allergy status to other drugs, medicaments and biological substances; Z91.048 Other nonmedicinal substance allergy status; Z82.3 Family history of stroke; Z80.8 Family history of malignant neoplasm of other organs or systems
CPT/HCPCS: 36415; 71045; 80048; 80053; 81003; 81015; 83605; 83690; 83735; 83880; 84443; 84484; 85025; 85379; 85610; 85730; 86140; 90732; 93005; 96365; 99285; A9270-GY; J0690; J1100; J1644; J1650; J2250; J2704; J3010

== ENCOUNTER 2018-01-18 11:00 | Inpatient (IN) | payer MEDICARE, MEDICAID ==
[2018-01-28 12:32] LABS: INR 1.02 (0.77-1.02)
--- NOTE | 2018-01-28 13:13 | HP ---
AMENDED REPORT NOW INCLUDES COSIGNER DESIGNATION - ESIGNED BEFORE ADJUSTMENT HISTORY AND PHYSICAL: DATE OF SURGERY: 02/10/18 DATE OF OFFICE VISIT: 01/17/18 SURGEON: Tatiana Garcia MD * (DICTATED BY MICHELLE CASTORENA) PROCEDURE: Left total hip arthroplasty. CHIEF COMPLAINT: Left hip pain. HISTORY OF PRESENT ILLNESS: Mr. Bush is a 62-year-old gentleman who is a resident at [facility] with continued complaints of left hip pain. He has failed conservative management and elected to proceed with a left total hip arthroplasty, which is scheduled for 02/10/[address] Garcia. PAST MEDICAL HISTORY: 1. Hypertension. 2. Iron-deficiency anemia. 3. Impulse control disorder. 4. Mental retardation. 5. Anxiety. 6. BPH. PAST SURGICAL HISTORY: Right total hip arthroplasty, right quad tendon repair, and tonsillectomy. CURRENT MEDICATIONS: 1. Fluoxetine 40 mg daily. 2. Hydroxyzine HCL 25 mg 1 to 2 tabs every 6 to 8 hours as needed. 3. Metoprolol 100 mg every day. 4. [place] 5/325 as needed. 5. Olanzapine 5 mg 2 tabs q.h.s. 6. Ranitidine 150 mg twice a day. 7. Sennoside. 8. Tylenol as needed. 9. Carbamazepine 200 mg. 10. Lactase. 11. Lactobacillus. 12. Loperamide. ALLERGIES: No known drug allergies. Allergic to DAIRY. FAMILY HISTORY: Stroke, multiple myeloma, and ulcerative colitis. SOCIAL HISTORY: This is a 62-year-old gentleman. He lives at [facility] . He does not smoke, use drugs, or alcohol. REVIEW OF SYSTEMS: A complete 14-point review of systems was reviewed with patient, it was positive for history of iron-deficiency anemia and GERD. He denies history of DVT, PE, hepatitis C, HIV, or anesthesia problems. PHYSICAL EXAMINATION GENERAL: He is well-developed, well-nourished, in no acute distress. VITAL SIGNS: He stands 5 feet 11 inches tall, weighs 258 pounds. His blood pressure is 142/80, his heart rate is 76. HEENT: Normocephalic and atraumatic. NECK: Supple. No palpable lymph nodes. PULMONARY: The lungs are clear to auscultation bilaterally. CARDIO: Regular rate and rhythm. Strong S1 and S2. ABDOMEN: Soft, nontender, and nondistended. NEUROLOGICAL: He is alert and oriented x3. Cranial nerves II through XII are intact. MUSCULOSKELETAL: Left lower extremity, the skin is intact. There is no open wounds or abrasions. He walks with an antalgic gait favoring his left hip. He has decreased internal and external rotation of the left hip. He has 2+ dorsalis pedis pulses. Intact sensation in his lower extremities. Muscle group strengths are intact at 5/5. ASSESSMENT AND PLAN: Mr. Bush is a 62-year-old gentleman with end-stage osteoarthritis of his left hip. He has failed conservative management and elected to proceed with a left total hip arthroplasty, which is scheduled for with Dr. Garcia. Dr. Garcia discussed the risks and benefits of the surgery at today's visit. All of his questions were answered. He will follow up with Dr. Garcia 2 weeks after the surgery. MICHELLE CASTORENA [id number]/[facility] #: [id number] [place]
[2018-02-09] MEDS ORDERED: Buffered Lidocaine 0.9% SYRIN* 5 ML/SYR SYRINGE INTRADERM ONE (12:36)
[2018-02-10] MEDS ORDERED: Famotidine IV* 10 MG/ML 2 ML (20 mg) IV ONE (06:00)
[2018-02-10] MEDS ORDERED: Midazolam* 1 MG/ML 5 ML VIAL (5 MG) ONE (08:11)
[2018-02-10] MEDS ORDERED: fentaNYL* 50 MCG/ML 2 ML VIAL (100 MCG VIAL) ONE ×5 (08:11→14:17)
[2018-02-10] MEDS ORDERED: Famotidine IV* 10 MG/ML 2 ML (20 mg) ONE (08:23)
[2018-02-10] MEDS ORDERED: ceFAZolin 1 GM in Dextrose (*) 1 GM/50 ML BAG IVPB ONE (08:24)
[2018-02-10] MEDS ORDERED: Buffered Lidocaine 0.9% SYRIN* 5 ML/SYR SYRINGE ONE (08:24)
[2018-02-10] MEDS ORDERED: ceFAZolin 2 GM PREMIX (*) 2 GM/50 ML BAG IVPB ONE (08:24)
[2018-02-10] MEDS ORDERED: Propofol* 10 MG/ML 20 ML BTL IV PUSH ONE ×2 (11:17→12:04)
[2018-02-10] MEDS ORDERED: Succinylcholine* 20 MG/ML 10 ML VIAL ONE (11:17)
[2018-02-10] MEDS ORDERED: Ketorolac INJ* 30 MG/ML 1 ML VIAL ONE (11:17)
[2018-02-10] MEDS ORDERED: Lidocaine 2% PF * 5 ML VIAL ONE (11:17)
[2018-02-10] MEDS ORDERED: Dexamethasone IV* 4 MG/ML 1 ML (4 MG) ONE (11:17)
[2018-02-10] MEDS ORDERED: DiMENhydriNATE IV* 50 MG/ML VIAL ONE ×2 (11:17→15:14)
[2018-02-10] MEDS ORDERED: KETAMINE HCL* 50 MG/ML 10 ML VIAL ONE (11:18)
[2018-02-10] MEDS ORDERED: DiMENhydriNATE IV* 50 MG/ML VIAL IV PUSH PRN (12:23)
[2018-02-10] MEDS ORDERED: HYDROcodone/ACETAMIN 5-325 MG* 1 TAB PO PRN (12:23)
[2018-02-10] MEDS ORDERED: HYDROmorphone INJ* 2 MG/ML CARPUJECT SYRINGE IV PRN (12:23)
[2018-02-10] MEDS ORDERED: Naloxone* 0.4 MG/ML 1 ML VIAL IV PRN (12:23)
--- NOTE | 2018-02-10 13:08 | RAD ---
INDICATION: Left hip replacement COMPARISON: Left hip October 01, 2017 TECHNIQUE: A single crosstable lateral portable image taken at 1240 hours is obtained for sizing of the femoral stem FINDINGS: There is placement acetabular cup and the femoral stem for sizing.
[2018-02-10] MEDS ORDERED: HYDROmorphone INJ* 1 MG/ML CARPUJECT SYRINGE ONE (13:21)
[2018-02-10] MEDS ORDERED: diPHENhydraMINE IV* 50 MG/ML 1 ml VIAL (BENADRYL) IV PRN (14:10)
[2018-02-10] MEDS ORDERED: Ondansetron INJ* 2 MG/ML VIAL IV PRN (14:10)
[2018-02-10] MEDS ORDERED: oxyCODONE/Acetamin 5/325 MG* TAB PO PRN (14:10)
[2018-02-10] MEDS ORDERED: Acetaminophen TAB* 325 MG PO PRN (14:10)
[2018-02-10] MEDS ORDERED: Magnesium Hydroxide LIQ* 30 ML UDC PO PRN (14:10)
[2018-02-10] MEDS ORDERED: Morphine VIAL* 4 MG/ML VIAL (1 ml vial) IV PRN (14:10)
[2018-02-10] MEDS ORDERED: Bisacodyl SUPP* 10 MG SUPP PR PRN (14:10)
[2018-02-10] MEDS ORDERED: HYDROmorphone INJ* 2 MG/ML CARPUJECT SYRINGE ONE (14:17)
[2018-02-10] MEDS ORDERED: Senna TAB PO PRN (14:17)
[2018-02-10] MEDS ORDERED: hydrOXYzine HCL TAB* 25 MG PO PRN (14:17)
[2018-02-10] MEDS: fentaNYL* 50 MCG/ML 2 ML VIAL (100 MCG VIAL) IV SLOW PU PRN ×2 (14:35→14:56)
--- NOTE | 2018-02-10 15:01 | RAD ---
INDICATION: Left hip arthroplasty COMPARISON: Left hip February 10, 2018 TECHNIQUE: AP and crosstable lateral portable image was performed FINDINGS: Bones: There is completion of left hip arthroplasty. The prosthesis appears normally seated. Joint spaces: There is an existing right hip prosthesis. The visualized components appear normal. SI joints/symphysis: The SI joints and symphysis are intact. Other: None IMPRESSION: STATUS POST LEFT HIP ARTHROPLASTY.
[2018-02-10] MEDS ORDERED: Warfarin TAB(*) 6 MG PO ONE (17:00)
[2018-02-10] MEDS: Metoprolol Succinate XL TAB* 100 MG PO SCH (17:48)
[2018-02-10] MEDS ORDERED: Metoprolol Succinate XL TAB* 100 MG PO SCH (18:00)
[2018-02-10] MEDS: oxyCODONE/Acetamin 5/325 MG* TAB PO PRN (18:17)
[2018-02-10] MEDS: ceFAZolin 1 GM in Dextrose (*) 1 GM/50 ML BAG IVPB SCH (18:18)
[2018-02-10] MEDS: oxyCODONE TAB* 5 MG TAB PO PRN (21:55)
[2018-02-10] MEDS: Famotidine TAB* 20 MG PO SCH (21:56)
[2018-02-10] MEDS: Docusate CAP* 100 MG PO SCH (21:56)
[2018-02-10] MEDS: carBAMazepine TAB(*) 200 MG PO SCH ×2 (21:56→21:57)
[2018-02-10] MEDS: OLANzapine TAB* 5 MG PO SCH (21:57)
[2018-02-10] MEDS: Magnesium Hydroxide LIQ* 30 ML UDC PO SCH (21:57)
--- NOTE | 2018-02-10 23:27 | CONS ---
CONSULTATION REPORT: DATE OF CONSULT: 02/10/18 CONSULTING PROVIDER: Brennan Toledo MD REQUESTING PHYSICIAN: Dr. Garcia of Orthopedics. PRIMARY CARE PROVIDER: Physicians at [facility]. REASON FOR CONSULT: Medical management of hypertension. CHIEF COMPLAINT: Continued left hip pain. HISTORY OF PRESENT ILLNESS: Kelvin Bush is a 62-year-old male with history of intellectual/developmental delay, anxiety disorder, hypertension, H. pylori infection causing gastric ulcers and causing iron-deficiency anemia with status post treatment, BPH, and osteoarthritis along with right quad tendon repair in September of this year after a fall. He has plateaued in his physical therapy at [facility] and it was thought even before the fall that his left osteoarthritis was end-stage and failing conservative management, now status post left total hip arthroplasty with Dr. Garcia. In the PACU, the patient's chief complaints are some mild nausea and "tummy ache." He denies any chest pain, shortness of breath, fevers, or chills. PAST MEDICAL HISTORY: Hypertension; H. pylori infection resulted in gastric ulcers and iron-deficiency anemia, status post treatment; impulse control disorder; intellectual/developmental delay; anxiety disorder; BPH; B12 deficiency; left hip osteoarthritis; right hip osteoarthritis, status post repair; right quad tendon repair; lactose intolerance. MEDICATIONS: Include: 1. Fluoxetine 40 mg a day. 2. Hydroxyzine 25 mg 1 to 2 tabs every 6 to 8 hours. 3. Metoprolol 100 mg every day. 4. [place] 5/325 as needed. 5. Olanzapine 10 mg q.h.s. 6. Ranitidine 150 mg b.i.d. 7. Sennoside. 8. Tylenol p.r.n. 9. Carbamazepine 200 mg p.o. b.i.d. 10. Lactase. 11. Lactobacillus. 12. Loperamide. ALLERGIES: No known drug allergies, although sister reports that there may be interactions between Zofran and his psych meds. FAMILY HISTORY: Mother with multiple myeloma and primary biliary cirrhosis. Father with CVA. Brother with ulcerative colitis. Niece with autoimmune kidney disease. SOCIAL HISTORY: The patient is currently living at [facility], [facility]. He is a full code. His medical surrogate is his sister, Vinita Patircio, [phone]. REVIEW OF SYSTEMS: A complete 14-point review of systems is somewhat limited as the patient is somewhat sedated in the PACU, as per HPI. PHYSICAL EXAM: General Appearance: No acute distress. Vital Signs: Temperature 98.2, heart rate 76, respiratory rate 16, oxygen sat 94% on 3 L, blood pressure 112/74. HEENT: Normocephalic, atraumatic. Pupils are equal, round, and reactive to light. Extraocular motions intact. No cervical lymphadenopathy. Neck is supple. Lungs: Anteriorly clear to auscultation bilaterally with no wheezing, rales, or rhonchi. Cardiovascular: Regular rate and rhythm. No murmurs, rubs, or gallops. Abdomen: Soft, nontender, slightly distended/obese. Extremities: Warm, well perfused. No peripheral edema. Left hip with bandage. He has posterior hip cushion in place. DIAGNOSTIC STUDIES/LAB DATA: Labs none. ASSESSMENT AND PLAN: Kelvin Bush is a 62-year-old male with past medical history of hypertension, intellectual/developmental delay and anxiety disorder, consulted to help manage his high blood pressure. Recommend continuing his metoprolol 50 mg q.a.m. and 100 mg q.p.m. For his anxiety disorder, recommend continuing his olanzapine 10 mg at night. He is getting oxycodone for pain relief. Continue his ranitidine. He is on warfarin for DVT prophylaxis. He must have lactose-free diet given his lactose intolerance. We will continue his carbamazepine 200 mg b.i.d. He is a full code. Medical surrogate is his sister, Vinita Patricio. [id number]/[facility] #: [id number] [facility]ITAL[facility]is
[2018-02-11] MEDS: ceFAZolin 1 GM in Dextrose (*) 1 GM/50 ML BAG IVPB SCH ×2 (02:20→11:35)
[2018-02-11] MEDS: oxyCODONE/Acetamin 5/325 MG* TAB PO PRN ×3 (02:23→17:26)
[2018-02-11 05:39] LABS: Hematocrit 30 % (42-52); Hemoglobin 10.2 g/dl (14.0-18.0); Mean Platelet Volume 6.4 um3 (7.4-10.4); Platelet Count 221 10^3/ul (150-450)
[2018-02-11 05:48] LABS: INR 1.13 (0.77-1.02)
[2018-02-11 05:58] LABS: EGFR Non-African American 112.1 (>60)
[2018-02-11] MEDS: Ferrous Sulfate TAB* 325 MG PO SCH (08:12)
[2018-02-11] MEDS: Cyclobenzaprine TAB* 10 MG PO PRN (08:12)
[2018-02-11] MEDS: Magnesium Hydroxide LIQ* 30 ML UDC PO SCH ×2 (08:13→21:48)
[2018-02-11] MEDS: Docusate CAP* 100 MG PO SCH ×2 (08:13→21:48)
[2018-02-11] MEDS: carBAMazepine TAB(*) 200 MG PO SCH ×3 (08:13→21:47)
[2018-02-11] MEDS: OLANzapine TAB* 5 MG PO SCH ×2 (08:13→21:48)
[2018-02-11] MEDS: FLUoxetine CAP* 20 MG PO SCH (08:13)
[2018-02-11] MEDS: Vitamin THERAPEUTIC TAB PO SCH (08:14)
[2018-02-11] MEDS ORDERED: Metoprolol Succinate XL TAB* 50 MG PO SCH (09:00)
[2018-02-11] MEDS: Metoprolol Succinate XL TAB* 50 MG PO SCH (09:49)
[2018-02-11] MEDS: Enoxaparin(*) 30 MG/0.3 ML SYR SUBCUT SCH (12:50)
[2018-02-11] MEDS: oxyCODONE TAB* 5 MG TAB PO PRN ×2 (12:50→19:32)
--- NOTE | 2018-02-11 13:38 | PN ---
Progress Note - Progress Note Date of Service: 02/11/18 Note: Subjective: 62 y/o male s/p L JOSE by Dr. Garcia 02/10/2018. Patient feeling well, no complaints, did well with PT this afternoon with keli lift, some difficulty with SOB with activity. BP soft, HR improved after bolus, metop. afebrile overnight. Objective: General- Well appearing, NAD, AO resting in bed comfortably MSK- L LE- DF/PF = b/l, PT 2+, negative homans sign, + edema b/l LE, Surgical dressing intact, no erythema, + indurated around thigh, non-tender, no warmth. Vital Signs Temp 99.1 F 02/11/18 11:22 Pulse 104 02/11/18 11:22 Resp 20 02/11/18 12:50 BP 98/54 02/11/18 11:22 Pulse Ox 95 02/11/18 11:22 Intake & Output 02/10/18 02/11/18 02/11/18 18:59 06:59 18:59 Intake Total 2530 1445 1458 Output Total 575 350 300 Balance 1955 1095 1158 Weight 116.12 kg Intake: IV Fluids 2500 990 738 LR 2400 990 738 NS 50ML, Cefazolin 2G 50 NS 50ML, Cefoxitin 1G 50 IVPB 55 ABX - CEFAZOLIN 55 Oral 30 400 720 Output: Urine 200 Leonard 575 350 100 Other: # Bowel Movements 0 Assessment: Stable 62 y/o male s/p L JOSE by Dr. Garcia 02/10/2018. Plan: - DVT prophylaxis- lovenox, coumadin 5mg tonight - Continue PT/ OT - Follow up with Dr. Garcia within 10-14 days - H&H - stable - post-op IV ABX - completed - hypotension, tachy- hospitalists following, improved after bolus, metop added back on , continue IVF @ 100, continue to monitor. Acetaminophen (Tylenol Tab*) 650 mg PO Q4H PRN PRN Reason: PAIN OR TEMPERATURE Bisacodyl (Dulcolax Supp*) 10 mg W[place] DAILY PRN PRN Reason: constipation Carbamazepine (Tegretol Tab(*)) 200 mg PO BEDTIME [facility] Last Admin: 02/10/18 21:56 Dose: 200 mg Carbamazepine (Tegretol Tab(*)) 200 mg PO BID [facility] Last Admin: 02/11/18 08:13 Dose: 200 mg Cyclobenzaprine HCl (Flexeril Tab*) 5 mg PO TID PRN PRN Reason: SPASMS Last Admin: 02/11/18 08:12 Dose: 5 mg Diphenhydramine HCl (Benadryl Iv*) 25 mg IV Q6H PRN PRN Reason: itching Docusate Sodium (Colace Cap*) 100 mg PO BID [facility] Last Admin: 02/11/18 08:13 Dose: 100 mg Enoxaparin Sodium (Lovenox(*)) 30 mg SUBCUT Q24H [facility] Last Admin: 02/11/18 12:50 Dose: 30 mg Famotidine (Pepcid Tab*) 20 mg PO BEDTIME [facility] PRN Reason: Protocol Last Admin: 02/10/18 21:56 Dose: 20 mg Ferrous Sulfate (Ferrous Sulfate Tab*) [facility] [place] [place] Admin: 02/11/18 08:12 Dose: 325 mg Fluoxetine HCl (Prozac Cap*) 40 mg PO QAM [facility] Last Admin: 02/11/18 08:13 Dose: 40 mg Hydromorphone HCl (Dilaudid Inj*) 0.2 mg IV Q5M PRN PRN Reason: PAIN - SEVERE Hydroxyzine HCl (Atarax Tab*) 25 mg PO QID PRN PRN Reason: ANXIETY Lactated Ringer's (Lactated Ringers 1000 Ml Bag*) 1,000 mls @ 100 mls/hr IV PER RATE [facility] Last Admin: 02/11/18 02:20 Dose: 100 mls/hr Lactated Ringer's (Lactated Ringers 1000 Ml Bag*) 500 mls @ 1,000 mls/hr IV .BOLUS [facility] Last Admin: 02/11/18 08:13 Dose: 500 mls/hr Lactulose (Lactulose*) 30 ml PO Q6H PRN PRN Reason: constipation Magnesium Hydroxide (Milk Of Magnesia Liq*) 30 ml PO BID [facility] Last Admin: 02/11/18 08:13 Dose: 30 ml Magnesium Hydroxide (Milk Of Magnesia Liq*) 30 ml PO Q6H PRN PRN Reason: constipation Metoprolol Succinate (Toprol Xl Tab*) 50 mg PO QAM [facility] Last Admin: 02/11/18 09:49 Dose: 50 mg Metoprolol Succinate (Toprol Xl Tab*) 100 mg PO QPM [facility] Last Admin: 02/10/18 17:48 Dose: Not Given Morphine Sulfate (Morphine Vial*) 2 mg IV Q2H PRN PRN Reason: PAIN Multivitamins (Theragran Tab*) 1 tab PO DAILY [facility] Last Admin: 02/11/18 08:14 Dose: 1 tab Olanzapine (Zyprexa Tab*) 5 mg PO BID [facility] Last Admin: 02/11/18 08:13 Dose: 5 mg Ondansetron HCl (Zofran Inj*) 4 mg IV Q6H PRN PRN Reason: nausea Oxycodone HCl (Roxycodone Tab*) 10 mg PO Q4H PRN PRN Reason: PAIN - SEVERE Last Admin: 02/11/18 12:50 Dose: 10 mg Oxycodone/Acetaminophen (Percocet 5/325 Tab*) 2 tab PO Q4H PRN PRN Reason: PAIN Last Admin: 02/11/18 09:49 Dose: 2 tab Oxycodone/Acetaminophen (Percocet 5/325 Tab*) 1 tab PO Q4H PRN PRN Reason: PAIN Senna (Senokot Tab*) 2 tab PO BEDTIME PRN PRN Reason: CONSTIPATION Warfarin Sodium (Coumadin Tab(*)) 5 mg PO ONCE@1700 ONE PRN Reason: Protocol Stop: 02/11/18 17:01
[2018-02-11] MEDS ORDERED: Warfarin TAB(*) 5 MG PO ONE (17:00)
[2018-02-11] MEDS: Metoprolol Succinate XL TAB* 100 MG PO SCH (17:26)
--- NOTE | 2018-02-11 18:57 | PN ---
Subjective Date of Service: 02/11/18 Interval History: slightly low BP (98) last night, missed metoprol. tachycardic overnight BP 90s in AM, got 500cc LR bolus slight hip discomfort. Objective Active Medications: Acetaminophen (Tylenol Tab*) 650 mg PO Q4H PRN PRN Reason: PAIN OR TEMPERATURE Bisacodyl (Dulcolax Supp*) 10 mg [place] DAILY PRN PRN Reason: constipation Carbamazepine (Tegretol Tab(*)) 200 mg PO BEDTIME [facility] Last Admin: 02/10/18 21:56 Dose: 200 mg Carbamazepine (Tegretol Tab(*)) 200 mg PO BID [facility] Last Admin: 02/11/18 08:13 Dose: 200 mg Cyclobenzaprine HCl (Flexeril Tab*) 5 mg PO TID PRN PRN Reason: SPASMS Last Admin: 02/11/18 08:12 Dose: 5 mg Diphenhydramine HCl (Benadryl Iv*) 25 mg IV Q6H PRN PRN Reason: itching Docusate Sodium (Colace Cap*) 100 mg PO BID [facility] Last Admin: 02/11/18 08:13 Dose: 100 mg Enoxaparin Sodium (Lovenox(*)) 30 mg SUBCUT Q24H [facility] Last Admin: 02/11/18 12:50 Dose: 30 mg Famotidine (Pepcid Tab*) 20 mg PO BEDTIME [facility] PRN Reason: Protocol Last Admin: 02/10/18 21:56 Dose: 20 mg Ferrous Sulfate (Ferrous Sulfate Tab*) 325 mg PO QAM [facility] Last Admin: 02/11/18 08:12 Dose: 325 mg Fluoxetine HCl (Prozac Cap*) 40 mg PO QAM [facility] Last Admin: 02/11/18 08:13 Dose: 40 mg Hydromorphone HCl (Dilaudid Inj*) 0.2 mg IV Q5M PRN PRN Reason: PAIN - SEVERE Hydroxyzine HCl (Atarax Tab*) 25 mg PO QID PRN PRN Reason: ANXIETY Lactated Ringer's (Lactated Ringers 1000 Ml Bag*) 1,000 mls @ 100 mls/hr IV PER RATE [facility] Last Admin: 02/11/18 02:20 Dose: 100 mls/hr Lactated Ringer's (Lactated Ringers 1000 Ml Bag*) 500 mls @ 1,000 mls/hr IV .BOLUS [facility] Last Admin: 02/11/18 08:13 Dose: 500 mls/hr Lactulose (Lactulose*) 30 ml PO Q6H PRN PRN Reason: constipation Magnesium Hydroxide (Milk Of Magnesia Liq*) 30 ml PO BID [facility] Last Admin: 02/11/18 08:13 Dose: 30 ml Magnesium Hydroxide (Milk Of Magnesia Liq*) 30 ml PO Q6H PRN PRN Reason: constipation Metoprolol Succinate (Toprol Xl Tab*) 50 mg PO QAM [facility] Last Admin: 02/11/18 09:49 Dose: 50 mg Metoprolol Succinate (Toprol Xl Tab*) 100 mg PO QPM [facility] Last Admin: 02/11/18 17:26 Dose: 100 mg Morphine Sulfate (Morphine Vial*) 2 mg IV Q2H PRN PRN Reason: PAIN Multivitamins (Theragran Tab*) 1 tab PO DAILY [facility] Last Admin: 02/11/18 08:14 Dose: 1 tab Olanzapine (Zyprexa Tab*) 5 mg PO BID [facility] Last Admin: 02/11/18 08:13 Dose: 5 mg Ondansetron HCl (Zofran Inj*) 4 mg IV Q6H PRN PRN Reason: nausea Oxycodone HCl (Roxycodone Tab*) 10 mg PO Q4H PRN PRN Reason: PAIN - SEVERE Last Admin: 02/11/18 12:50 Dose: 10 mg Oxycodone/Acetaminophen (Percocet 5/325 Tab*) 2 tab PO Q4H PRN PRN Reason: PAIN Last Admin: 02/11/18 17:26 Dose: 2 tab Oxycodone/Acetaminophen (Percocet 5/325 Tab*) 1 tab PO Q4H PRN PRN Reason: PAIN Senna (Senokot Tab*) 2 tab PO BEDTIME PRN PRN Reason: CONSTIPATION Vital Signs - 8 hr 02/11/18 02/11/18 02/11/18 11:22 12:23 12:50 Temperature 99.1 F Pulse Rate 104 Respiratory 16 16 20 Rate Blood Pressure 98/54 (mmHg) O2 Sat by Pulse 95 Oximetry 02/11/18 02/11/18 02/11/18 16:03 17:23 17:26 Temperature 98.5 F Pulse Rate 102 Respiratory 16 20 20 Rate Blood Pressure 121/60 (mmHg) O2 Sat by Pulse 97 Oximetry Oxygen Devices in Use Now: Nasal Cannula Appearance: NAD Eyes: No Scleral Icterus Ears/Nose/Mouth/Throat: NL Teeth, Lips, Gums, Mucous Membranes Moist Neck: NL Appearance and Movements; NL JVP Respiratory: Symmetrical Chest Expansion and Respiratory Effort, Clear to Auscultation Cardiovascular: NL Sounds; No Murmurs; No JVD, RRR Abdominal: NL Sounds; No Tenderness; No Distention, No Hepatosplenomegaly Extremities: No Edema, - - left hip bandage w/o strikethru, no induration or bogginess. Skin: No Rash or Ulcers Neurological: Alert and Oriented x 3, NL Sensation Nutrition: Taking PO's Result Diagrams: 02/11/18 05:27 02/11/18 05:27 Additional Lab and Data: Laboratory Results - last 24 hr 02/11/18 02/11/18 02/11/18 05:27 05:27 05:27 Hgb 10.2 L Hct 30 L Plt Count 221 MPV 6.4 L INR (Anticoag Therapy) 1.13 H Sodium 130 L Potassium 4.1 Chloride 102 Carbon Dioxide 24 Anion Gap 4 BUN 13 Creatinine 0.71 Est GFR ( Amer) 144.1 Est GFR (Non-Af Amer) 112.1 BUN/Creatinine Ratio 18.3 Glucose 130 H Calcium 8.1 L Microbiology and Other Data: Microbiology 02/10/18 16:18 Nasal Nasal Screen MRSA (PCR)(PIERO) - Final Mrsa Not Detected Assess/Plan/Problems-Billing Assessment: 62 yo male PMH intellectual developmental delay, anxiety disorder, impulse control do, HTN, OA, s/p elective total left hip arthroplasty. - Patient Problems (1) Status post left hip replacement Current Visit: Yes Status: Acute Code(s): Z96.642 - PRESENCE OF LEFT ARTIFICIAL HIP JOINT SNOMED Code(s): 280545295 Comment: pain control per ortho lovenox, coumadin. (2) HTN (hypertension) Current Visit: No Status: Acute Code(s): I10 - ESSENTIAL (PRIMARY) HYPERTENSION SNOMED Code(s): 28341608 Comment: Continue metoprolol 50 qam, 100mg qpm (3) Mental retardation Current Visit: No Status: Acute Code(s): F79 - UNSPECIFIED INTELLECTUAL DISABILITIES SNOMED Code(s): 182619806 Comment: With impulse control disorder and axiety. Continue tegretol, zyprexa. Status and Disposition: ORTHO service, medicine consulting.
[2018-02-11] MEDS: Famotidine TAB* 20 MG PO SCH (21:47)
[2018-02-12] MEDS: oxyCODONE/Acetamin 5/325 MG* TAB PO PRN ×4 (00:11→19:13)
--- NOTE | 2018-02-12 03:35 | OP ---
OPERATIVE REPORT: DATE OF OPERATION: 02/10/18 DATE OF : 53 SURGEON: Tatiana Garcia MD DIGITAL STRATEGIST: MICHELLE Gee Ms. Young did help throughout the procedure with preparation of the leg, wound retraction, manipulat ion of the hip, and wound closure. ANESTHESIOLOGIST: Akosua Delgado MD ANESTHESIA: Spinal. PRE-OP DIAGNOSIS: Severe end-stage degenerative osteoarthritis of the left hip joint with extensive subchondral cyst formation. POST-OP DIAGNOSIS: Severe end-stage degenerative osteoarthritis of the left hip joint with extensive subchondral cyst formation. OPERATIVE PROCEDURE: Left total hip arthroplasty with subchondral bone grafting using femoral head a utograft. Plus modifier for increased complexity of the case. INDICATIONS: Mr. Bush is a 62-year-old gentleman with years of increasingly severe left hip pain a nd disability. Radiographs showed cfti-de-feip arthritis with extreme deformation of the bone and aguilar bchondral cyst formation. The patient had difficulty ambulating at all because of the pain. He elec nery to undergo left total hip arthroplasty due to continued pain and decreased quality of life. Infor med consent was obtained from the patient and his healthcare proxy and guardian, his sister. They un derstood the risks of surgery included, but were not limited to, bleeding, infection, damage to nearb y structures, continued pain, need for further surgery, intraoperative fracture, nerve palsy, hardwar e failure or loosening, dislocation, leg length inequality, stroke, heart attack, blood clot, and tyler th. He wished to proceed. COMPLICATIONS: None. ESTIMATED BLOOD LOSS: 300 cc. SPECIMENS: Femoral head and acetabular reaming sent to Pathology. HARDWARE USED: Fermin uncemented total hip arthroplasty hardware. For the cup, a Trident Tritanium 58F, a single 25-mm cancellous bone screw. For the polyethylene insert, a Trident X3 0-degree 40F. For the stem, an Accolade TMZF, size 2.5 with a 127-degree neck. For the head, a Biolox delta ceram ic V40 femoral head 40 +0. INTRAOPERATIVE FINDINGS: Intraoperatively, the patient was noted to have complete loss of cartilage along the femoral head and acetabulum. There were bone deformation and loss because of chronic wear. The acetabulum had extensive subchondral cyst formation. This was in the weightbearing portion of the acetabulum. It was noted that the patient had extensive contracture from chronic arthritic mayers es and significant loss of rotation of the hip and loss of full extension of the hip. DESCRIPTION OF PROCEDURE: Mr. Bush was identified in the preanesthesia unit. His left lower extrem ity was marked as the correct operative side. Informed consent was signed by his guarding, his omer r. The patient was taken to the operating room and placed under general anesthesia. A Leonard cathete r was placed. The patient was placed in the right lateral decubitus position on the peg board. All missy ny prominences were well padded. Left lower extremity was prepped and draped in the usual sterile fa shion. Preop time-out was made to once again correctly identify the patient's side and site. Approp riate perioperative antibiotics were given within 1 hour of incision. A posterior hip incision was made with a 10 blade and carried down to the lateral fascial layer. Lat eral fascial layer was then incised in line with the skin incision. A Charnley retractor was placed. The piriformis and conjoint tendons were identified and elevated from the posterolateral femur usin g electrocautery. Next, electrocautery was used to make a standard posterolateral capsular flap and t his was also tagged with #5 Ethibond. The hip was carefully dislocated. Lesser troch to the center of the femoral head was estimated to be 65 mm. Estimation was difficult be cause of the extreme deformation of the femoral head. Oscillating saw was used to make the appropriat e femoral neck cut. The femoral head was removed and autograft was collected from this. The femur was retracted anteriorly. After appropriate placement of retractor, the acetabulum was vis ualized. A long-handled knife was used to sharply remove any labrum that remained around the acetabu lar rim. The acetabulum was sequentially reamed up to a size 57. 57 reamer obtained a bleeding subc hondral bone bed with extensive subchondral cyst visualized. The cystic material was meticulously re moved using curettes and rongeur. This area was packed with autograft from the femoral head. Final implant chosen was a Trident Tritanium hemispherical shell 58F. This was impacted into the acetabulu m without difficulty and stability was satisfactory. There was appropriate anteversion and abduction angle. A Trident X3 0-degree liner was chosen 40F. This was impacted into the acetabulum without d ifficulty. Stability of the liner was checked and rechecked and noted to be stable. Attention was next turned to preparation of the femur. A canal finder was used to enter the proximal femur. The femur was sequentially broached up to a size 3.5. 3.5 broach had good fit with appropria te anteversion. A 127 neck trial and a 40 +0 head trial was placed. Lesser troch to center of the f emoral head measured 66 mm. The hip was reduced and taken through a range of motion. The hip was sta ble in all positions. It was noted once again that the patient's preop motion and contracture limite d his final motion. The hip was stable in all positions. The hip was dislocated. All trials were removed. Final implant chosen was an Accolade TMZF, size 3. 5 and a 127-degree neck angle. This was impacted into the canal and had good stability and appropria te anteversion. A 40 +0 Biolox delta ceramic V40 femoral head was chosen and impacted on to the femo ral neck. The hip was reduced and taken through a range of motion. The hip was stable in all positi ons. The leg length and soft tissue tension were deemed to be appropriate. The area was completely i rrigated with sterile saline. Previously tagged tendons and capsules were reapproximated to the post erolateral femur through 2 trochanteric drill holes. The lateral fascial area was closed using inter rupted #1 Vicryls. The rest of the incision was closed in a layered fashion using 0 and 2-0 Vicryls. Skin was closed using running 3-0 Monocryl and Dermabond. Sterile Adaptic, 4x4s, and paper tape were used to cover the incision. The patient's anesthesia was reversed without difficulty. He was taken to the PACU in stable conditi on. Intended weightbearing will be weightbearing as tolerated. Intended DVT prophylaxis will be Coum ken with a Lovenox bridge. This case had increased complexity from chronic bone loss and wear. There was extensive cyst formati on that was autografted. Complexity of the procedure did add at least 1 hour to the surgical time. [id number]/[facility] #: [id number]
[2018-02-12] MEDS: oxyCODONE TAB* 5 MG TAB PO PRN ×2 (03:45→08:04)
[2018-02-12 06:25] LABS: Hematocrit 25 % (42-52); Hemoglobin 8.7 g/dl (14.0-18.0); Mean Platelet Volume 6.6 um3 (7.4-10.4); Platelet Count 175 10^3/ul (150-450)
[2018-02-12 06:31] LABS: INR 1.59 (0.77-1.02)
[2018-02-12] MEDS: FLUoxetine CAP* 20 MG PO SCH (08:02)
[2018-02-12] MEDS: OLANzapine TAB* 5 MG PO SCH ×2 (08:03→20:47)
[2018-02-12] MEDS: Metoprolol Succinate XL TAB* 50 MG PO SCH (08:03)
[2018-02-12] MEDS: Ferrous Sulfate TAB* 325 MG PO SCH (08:03)
[2018-02-12] MEDS: carBAMazepine TAB(*) 200 MG PO SCH ×3 (08:03→20:47)
[2018-02-12] MEDS: Docusate CAP* 100 MG PO SCH ×2 (08:03→20:47)
[2018-02-12] MEDS: Vitamin THERAPEUTIC TAB PO SCH (08:04)
[2018-02-12] MEDS: Magnesium Hydroxide LIQ* 30 ML UDC PO SCH ×2 (08:05→20:47)
--- NOTE | 2018-02-12 10:03 | PN ---
Progress Note - Progress Note Date of Service: 02/12/18 SOAP: Subjective: 62 y/o male s/p L JOSE by Dr. Garcia 02/10/2018. Patient feeling well, no complaints, did well with PT this afternoon with keli lift, some difficulty with SOB with activity. BP soft, HR improved after bolus, metop. afebrile overnight. Objective: General- Well appearing, NAD, AO resting in bed comfortably MSK- LLE- DF/PF = b/l, PT 2+, negative homans sign, + edema b/l LE, Surgical dressing changed, no erythema, no drainage, non-tender, no warmth. Vital Signs Temp 98.6 F 02/12/18 07:30 Pulse 97 02/12/18 07:30 Resp 18 02/12/18 08:04 BP 140/62 02/12/18 07:30 Pulse Ox 95 02/12/18 07:30 Intake & Output 02/11/18 02/12/18 02/12/18 18:59 06:59 18:59 Intake Total 1458 1100 Output Total 825 750 425 Balance 633 350 -425 Intake: IV Fluids 738 LR 738 Oral 720 1100 Output: Urine 725 750 425 Leonard 100 Other: Estimated Void Small # Voids 1 1 Assessment: Stable 62 y/o male s/p L JOSE by Dr. Garcia 02/10/2018. Plan: - DVT prophylaxis- lovenox, coumadin 6mg tonight - Continue PT/ OT - Follow up with Dr. Garcia within 10-14 days - H&H - stable
[2018-02-12] MEDS: Enoxaparin(*) 30 MG/0.3 ML SYR SUBCUT SCH (12:34)
--- NOTE | 2018-02-12 14:19 | PN ---
Subjective Date of Service: 02/12/18 Interval History: no complaints resting in bed, denies chest pain or shortness of breath, denies abd pain n/v/d. denies fever or chills. Family History: Unchanged from Admission Social History: Unchanged from Admission Past Medical History: Unchanged from Admission Objective Active Medications: Acetaminophen (Tylenol Tab*) 650 mg PO Q4H PRN PRN Reason: PAIN OR TEMPERATURE Bisacodyl (Dulcolax Supp*) 10 mg [place] DAILY PRN PRN Reason: constipation Carbamazepine (Tegretol Tab(*)) 200 mg PO BEDTIME [facility] Last Admin: 02/11/18 21:47 Dose: 200 mg Carbamazepine (Tegretol Tab(*)) 200 mg PO BID [facility] Last Admin: 02/12/18 08:03 Dose: 200 mg Cyclobenzaprine HCl (Flexeril Tab*) 5 mg PO TID PRN PRN Reason: SPASMS Last Admin: 02/11/18 08:12 Dose: 5 mg Diphenhydramine HCl (Benadryl Iv*) 25 mg IV Q6H PRN PRN Reason: itching Docusate Sodium (Colace Cap*) 100 mg PO BID [facility] Last Admin: 02/12/18 08:03 Dose: 100 mg Enoxaparin Sodium (Lovenox(*)) 30 mg SUBCUT Q24H [facility] Last Admin: 02/12/18 12:34 Dose: 30 mg Famotidine (Pepcid Tab*) 20 mg PO BEDTIME [facility] PRN Reason: Protocol Last Admin: 02/11/18 21:47 Dose: 20 mg Ferrous Sulfate (Ferrous Sulfate Tab*) 325 mg PO QAM [facility] Last Admin: 02/12/18 08:03 Dose: 325 mg Fluoxetine HCl (Prozac Cap*) 40 mg PO QAM [facility] Last Admin: 02/12/18 08:02 Dose: 40 mg Hydroxyzine HCl (Atarax Tab*) 25 mg PO QID PRN PRN Reason: ANXIETY Last Admin: 02/12/18 13:33 Dose: 25 mg Lactated Ringer's (Lactated Ringers 1000 Ml Bag*) 1,000 mls @ 100 mls/hr IV PER RATE [facility] Last Admin: 02/11/18 02:20 Dose: 100 mls/hr Lactated Ringer's (Lactated Ringers 1000 Ml Bag*) 500 mls @ 1,000 mls/hr IV .BOLUS [facility] Last Admin: 02/11/18 08:13 Dose: 500 mls/hr Lactulose (Lactulose*) 30 ml PO Q6H PRN PRN Reason: constipation Magnesium Hydroxide (Milk Of Magnesia Liq*) 30 ml PO BID [facility] Last Admin: 02/12/18 08:05 Dose: 30 ml Magnesium Hydroxide (Milk Of Magnesia Liq*) 30 ml PO Q6H PRN PRN Reason: constipation Metoprolol Succinate (Toprol Xl Tab*) 50 mg PO QAM [facility] Last Admin: 02/12/18 08:03 Dose: 50 mg Metoprolol Succinate (Toprol Xl Tab*) 100 mg PO QPM [facility] Last Admin: 02/11/18 17:26 Dose: 100 mg Morphine Sulfate (Morphine Vial*) 2 mg IV Q2H PRN PRN Reason: PAIN Multivitamins (Theragran Tab*) 1 tab PO DAILY [facility] Last Admin: 02/12/18 08:04 Dose: 1 tab Olanzapine (Zyprexa Tab*) 5 mg PO BID [facility] Last Admin: 02/12/18 08:03 Dose: 5 mg Ondansetron HCl (Zofran Inj*) 4 mg IV Q6H PRN PRN Reason: nausea Oxycodone HCl (Roxycodone Tab*) 10 mg PO Q4H PRN PRN Reason: PAIN - SEVERE Last Admin: 02/12/18 08:04 Dose: 10 mg Oxycodone/Acetaminophen (Percocet 5/325 Tab*) 2 tab PO Q4H PRN PRN Reason: PAIN Last Admin: 02/12/18 10:56 Dose: 2 tab Oxycodone/Acetaminophen (Percocet 5/325 Tab*) 1 tab PO Q4H PRN PRN Reason: PAIN Senna (Senokot Tab*) 2 tab PO BEDTIME PRN PRN Reason: CONSTIPATION Warfarin Sodium (Coumadin Tab(*)) 6 mg PO ONCE@1700 [facility] PRN Reason: Protocol Stop: 02/12/18 17:01 Vital Signs - 8 hr 02/12/18 02/12/18 02/12/18 07:30 08:04 08:12 Temperature 98.6 F Pulse Rate 97 Respiratory 18 18 18 Rate Blood Pressure 140/62 (mmHg) O2 Sat by Pulse 95 93 Oximetry 02/12/18 02/12/18 02/12/18 10:45 10:56 11:46 Temperature 98.1 F Pulse Rate 94 Respiratory 18 18 Rate Blood Pressure 120/58 (mmHg) O2 Sat by Pulse 93 Oximetry 02/12/18 13:26 Temperature Pulse Rate Respiratory 18 Rate Blood Pressure (mmHg) O2 Sat by Pulse Oximetry Oxygen Devices in Use Now: None Appearance: appears comfortable , no acute distress. Eyes: No Scleral Icterus Ears/Nose/Mouth/Throat: Clear Oropharnyx, Mucous Membranes Moist Neck: NL Appearance and Movements; NL JVP, Trachea Midline Respiratory: Symmetrical Chest Expansion and Respiratory Effort, Clear to Auscultation Cardiovascular: NL Sounds; No Murmurs; No JVD, No Edema Abdominal: NL Sounds; No Tenderness; No Distention Extremities: No Edema, No Clubbing, Cyanosis Skin: No Rash or Ulcers Neurological: Alert and Oriented x 3 Nutrition: Taking PO's Result Diagrams: 02/12/18 05:47 02/11/18 05:27 Additional Lab and Data: Laboratory Results - last 24 hr 02/11/18 02/11/18 02/11/18 05:27 05:27 05:27 Hgb 10.2 L Hct 30 L Plt Count 221 MPV 6.4 L INR (Anticoag Therapy) 1.13 H Sodium 130 L Potassium 4.1 Chloride 102 Carbon Dioxide 24 Anion Gap 4 BUN 13 Creatinine 0.71 Est GFR ( Amer) 144.1 Est GFR (Non-Af Amer) 112.1 BUN/Creatinine Ratio 18.3 Glucose 130 H Calcium 8.1 L Microbiology and Other Data: Microbiology 02/10/18 16:18 Nasal Nasal Screen MRSA (PCR)(PIERO) - Final Mrsa Not Detected Assess/Plan/Problems-Billing Assessment: 62 yo male PMH intellectual developmental delay, anxiety disorder, impulse control do, HTN, OA, s/p elective total left hip arthroplasty. - Patient Problems (1) Status post left hip replacement Current Visit: Yes Status: Acute Code(s): Z96.642 - PRESENCE OF LEFT ARTIFICIAL HIP JOINT SNOMED Code(s): 325617819 Comment: pain control per ortho Anticoagulation per ortho- would use caution with the anticoagulation therapy as patient did have a bleeding ulcer in 04/2016. (2) HTN (hypertension) Current Visit: No Status: Acute Code(s): I10 - ESSENTIAL (PRIMARY) HYPERTENSION SNOMED Code(s): 40031851 Comment: Continue metoprolol 50 qam, 100mg qpm (3) Iron deficiency anemia Current Visit: No Status: Acute Code(s): D50.9 - IRON DEFICIENCY ANEMIA, UNSPECIFIED SNOMED Code(s): 56097078 Comment: continue FeSO4 H/H today- suspect this is related to surgery and hemodilution (4) Mental retardation Current Visit: No Status: Acute Code(s): F79 - UNSPECIFIED INTELLECTUAL DISABILITIES SNOMED Code(s): 870752915 Comment: With impulse control disorder and axiety. Continue tegretol, zyprexa. (5) DVT prophylaxis Current Visit: Yes Status: Acute Code(s): BUY2984 - SNOMED Code(s): 894213676 Comment: as per orthopedics (6) Full code status Current Visit: Yes Status: Acute Code(s): Z78.9 - OTHER SPECIFIED HEALTH STATUS SNOMED Code(s): 668960594 Status and Disposition: ORTHO service, medicine consulting.
[2018-02-12] MEDS ORDERED: Warfarin TAB(*) 6 MG PO SCH (17:00)
[2018-02-12] MEDS: Metoprolol Succinate XL TAB* 100 MG PO SCH (17:03)
[2018-02-12] MEDS: Famotidine TAB* 20 MG PO SCH (20:47)
[2018-02-13] MEDS: oxyCODONE/Acetamin 5/325 MG* TAB PO PRN ×3 (02:06→13:58)
[2018-02-13 05:44] LABS: Hematocrit 23 % (42-52); Hemoglobin 7.9 g/dl (14.0-18.0); Mean Platelet Volume 6.3 um3 (7.4-10.4); Platelet Count 196 10^3/ul (150-450)
[2018-02-13 05:52] LABS: INR 1.67 (0.77-1.02)
[2018-02-13] MEDS: Vitamin THERAPEUTIC TAB PO SCH (08:19)
[2018-02-13] MEDS: FLUoxetine CAP* 20 MG PO SCH (08:19)
[2018-02-13] MEDS: carBAMazepine TAB(*) 200 MG PO SCH ×3 (08:19→20:18)
[2018-02-13] MEDS: OLANzapine TAB* 5 MG PO SCH ×2 (08:19→20:17)
[2018-02-13] MEDS: Ferrous Sulfate TAB* 325 MG PO SCH (08:19)
[2018-02-13] MEDS: Docusate CAP* 100 MG PO SCH ×2 (08:19→20:18)
[2018-02-13] MEDS: Metoprolol Succinate XL TAB* 50 MG PO SCH (08:20)
[2018-02-13] MEDS: Magnesium Hydroxide LIQ* 30 ML UDC PO SCH ×2 (08:43→20:18)
[2018-02-13] MEDS: Enoxaparin(*) 30 MG/0.3 ML SYR SUBCUT SCH (11:44)
--- NOTE | 2018-02-13 13:02 | PN ---
Progress Note - Progress Note Date of Service: 02/13/18 SOAP: Subjective: Pt is doing well. He is drowsy today. Denies CP, SOB, calf pain or F/C. Had EKG overnight because nurse auscultated irregular rhythm. EKG NSR Regular rate. VSS overnight. Hypotension improving Objective: PE: 62 y/o WDWN sitting in chair comfortably LLE: dressing changed inc c/d/i, calf soft NT, +DF/PF ankle, SILT Vital Signs Temp Pulse Resp BP Pulse Ox 97.6 F 86 16 107/47 95 02/13/18 03:42 02/13/18 07:30 02/13/18 10:19 02/13/18 07:30 02/13/18 07:30 Laboratory Results - last 24 hr 02/13/18 02/13/18 05:29 05:29 Hgb 7.9 L Hct 23 L Plt Count 196 MPV 6.3 L INR (Anticoag Therapy) 1.67 H Assessment: Stable 62 y/o male s/p L JOSE by Dr. Garcia 02/10/2018. POD 3 Plan: - DVT prophylaxis- lovenox, coumadin 6mg tonight - Continue PT/ OT - Follow up with Dr. Garcia within 10-14 days -Cont monitor H&H, BP improving - Plan DC to [facility] 02/13/18 if stable
[2018-02-13] MEDS: Cyclobenzaprine TAB* 10 MG PO PRN (14:03)
[2018-02-13] MEDS ORDERED: Warfarin TAB(*) 6 MG PO SCH (17:00)
[2018-02-13] MEDS: Metoprolol Succinate XL TAB* 100 MG PO SCH (17:25)
--- NOTE | 2018-02-13 17:53 | PN ---
Subjective Date of Service: 02/13/18 Interval History: c/o left foot pain today, numbness and tingling, patient repositioned in bed and air mattress inflated pain resolved. Denies chest pain or shortness of breath. Denies abd pain, n/v/d denies pain to left hip or calf pain. Family History: Unchanged from Admission Social History: Unchanged from Admission Past Medical History: Unchanged from Admission Objective Active Medications: Acetaminophen (Tylenol Tab*) 650 mg PO Q4H PRN PRN Reason: PAIN OR TEMPERATURE Bisacodyl (Dulcolax Supp*) 10 mg [place] DAILY PRN PRN Reason: constipation Carbamazepine (Tegretol Tab(*)) 200 mg PO BEDTIME [facility] Last Admin: 02/12/18 20:47 Dose: 200 mg Carbamazepine (Tegretol Tab(*)) 200 mg PO BID [facility] Last Admin: 02/13/18 08:19 Dose: 200 mg Cyclobenzaprine HCl (Flexeril Tab*) 5 mg PO TID PRN PRN Reason: SPASMS Last Admin: 02/13/18 14:03 Dose: 5 mg Diphenhydramine HCl (Benadryl Iv*) 25 mg IV Q6H PRN PRN Reason: itching Docusate Sodium (Colace Cap*) 100 mg PO BID [facility] Last Admin: 02/13/18 08:19 Dose: 100 mg Enoxaparin Sodium (Lovenox(*)) 30 mg SUBCUT Q24H [facility] Last Admin: 02/13/18 11:44 Dose: 30 mg Famotidine (Pepcid Tab*) 20 mg PO BEDTIME [facility] PRN Reason: Protocol Last Admin: 02/12/18 20:47 Dose: 20 mg Ferrous Sulfate (Ferrous Sulfate Tab*) 325 mg PO QAM [facility] Last Admin: 02/13/18 08:19 Dose: 325 mg Fluoxetine HCl (Prozac Cap*) 40 mg PO QAM [facility] Last Admin: 02/13/18 08:19 Dose: 40 mg Hydroxyzine HCl (Atarax Tab*) 25 mg PO QID PRN PRN Reason: ANXIETY Last Admin: 02/12/18 13:33 Dose: 25 mg Lactated Ringer's (Lactated Ringers 1000 Ml Bag*) 500 mls @ 1,000 mls/hr IV .BOLUS [facility] Last Admin: 02/11/18 08:13 Dose: 500 mls/hr Lactulose (Lactulose*) 30 ml PO Q6H PRN PRN Reason: constipation Magnesium Hydroxide (Milk Of Magnesia Liq*) 30 ml PO BID [facility] Last Admin: 02/13/18 08:43 Dose: 30 ml Magnesium Hydroxide (Milk Of Magnesia Liq*) 30 ml PO Q6H PRN PRN Reason: constipation Metoprolol Succinate (Toprol Xl Tab*) 50 mg PO QAM [facility] Last Admin: 02/13/18 08:20 Dose: 50 mg Metoprolol Succinate (Toprol Xl Tab*) 100 mg PO QPM [facility] Last Admin: 02/13/18 17:25 Dose: 100 mg Morphine Sulfate (Morphine Vial*) 2 mg IV Q2H PRN PRN Reason: PAIN Multivitamins (Theragran Tab*) 1 tab PO DAILY [facility] Last Admin: 02/13/18 08:19 Dose: 1 tab Olanzapine (Zyprexa Tab*) 5 mg PO BID [facility] Last Admin: 02/13/18 08:19 Dose: 5 mg Ondansetron HCl (Zofran Inj*) 4 mg IV Q6H PRN PRN Reason: nausea Oxycodone HCl (Roxycodone Tab*) 10 mg PO Q4H PRN PRN Reason: PAIN - SEVERE Last Admin: 02/12/18 08:04 Dose: 10 mg Oxycodone/Acetaminophen (Percocet 5/325 Tab*) 2 tab PO Q4H PRN PRN Reason: PAIN Last Admin: 02/13/18 13:58 Dose: 2 tab Oxycodone/Acetaminophen (Percocet 5/325 Tab*) 1 tab PO Q4H PRN PRN Reason: PAIN Senna (Senokot Tab*) 2 tab PO BEDTIME PRN PRN Reason: CONSTIPATION Vital Signs - 8 hr 02/13/18 02/13/18 02/13/18 10:19 11:26 13:58 Temperature Pulse Rate 88 Respiratory 16 16 18 Rate Blood Pressure 115/54 (mmHg) O2 Sat by Pulse 94 Oximetry 02/13/18 02/13/18 02/13/18 14:03 14:48 15:29 Temperature 97.6 F Pulse Rate 93 Respiratory 16 16 Rate Blood Pressure 115/59 (mmHg) O2 Sat by Pulse 94 96 Oximetry 02/13/18 16:16 Temperature Pulse Rate Respiratory 16 Rate Blood Pressure (mmHg) O2 Sat by Pulse Oximetry Oxygen Devices in Use Now: Nasal Cannula Appearance: appears comfortable after repositioning, alert Eyes: No Scleral Icterus Ears/Nose/Mouth/Throat: Clear Oropharnyx, Mucous Membranes Moist Neck: NL Appearance and Movements; NL JVP, Trachea Midline Respiratory: Symmetrical Chest Expansion and Respiratory Effort, Clear to Auscultation Cardiovascular: NL Sounds; No Murmurs; No JVD Abdominal: NL Sounds; No Tenderness; No Distention Extremities: No Edema, No Clubbing, Cyanosis, - - pedal pulses +2 bilat Skin: No Rash or Ulcers, - - dressing intact to left hip Neurological: Alert and Oriented x 3, NL Muscle Strength and Tone Result Diagrams: 02/13/18 05:29 02/11/18 05:27 Additional Lab and Data: Laboratory Results - last 24 hr 02/11/18 02/11/18 02/11/18 05:27 05:27 05:27 Hgb 10.2 L Hct 30 L Plt Count 221 MPV 6.4 L INR (Anticoag Therapy) 1.13 H Sodium 130 L Potassium 4.1 Chloride 102 Carbon Dioxide 24 Anion Gap 4 BUN 13 Creatinine 0.71 Est GFR ( Amer) 144.1 Est GFR (Non-Af Amer) 112.1 BUN/Creatinine Ratio 18.3 Glucose 130 H Calcium 8.1 L Microbiology and Other Data: Microbiology 02/10/18 16:18 Nasal Nasal Screen MRSA (PCR)(PIERO) - Final Mrsa Not Detected Assess/Plan/Problems-Billing Assessment: 62 yo male PMH intellectual developmental delay, anxiety disorder, impulse control do, HTN, OA, s/p elective total left hip arthroplasty. - Patient Problems (1) Status post left hip replacement Current Visit: Yes Status: Acute Code(s): Z96.642 - PRESENCE OF LEFT ARTIFICIAL HIP JOINT SNOMED Code(s): 572151197 Comment: pain control per ortho Anticoagulation per ortho- would use caution with the anticoagulation therapy as patient did have a bleeding ulcer in 04/2016. (2) HTN (hypertension) Current Visit: No Status: Acute Code(s): I10 - ESSENTIAL (PRIMARY) HYPERTENSION SNOMED Code(s): 17539900 Comment: Continue metoprolol 50 qam, 100mg qpm (3) Iron deficiency anemia Current Visit: No Status: Acute Code(s): D50.9 - IRON DEFICIENCY ANEMIA, UNSPECIFIED SNOMED Code(s): 58458976 Comment: continue FeSO4 H/H .06/19 today- suspect this is related to surgery and hemodilution denies shortness of breath or dizziness (4) Mental retardation Current Visit: No Status: Acute Code(s): F79 - UNSPECIFIED INTELLECTUAL DISABILITIES SNOMED Code(s): 680119459 Comment: With impulse control disorder and axiety. Continue tegretol, zyprexa. (5) DVT prophylaxis Current Visit: Yes Status: Acute Code(s): QXR4813 - SNOMED Code(s): 647069060 Comment: as per orthopedics (6) Full code status Current Visit: Yes Status: Acute Code(s): Z78.9 - OTHER SPECIFIED HEALTH STATUS SNOMED Code(s): 178449845 Status and Disposition: ORTHO service, medicine consulting.
[2018-02-13] MEDS: Famotidine TAB* 20 MG PO SCH (20:18)
[2018-02-14] MEDS: oxyCODONE TAB* 5 MG TAB PO PRN (04:15)
[2018-02-14 05:30] LABS: Hematocrit 23 % (42-52); Hemoglobin 7.8 g/dl (14.0-18.0); Mean Platelet Volume 6.7 um3 (7.4-10.4); Platelet Count 233 10^3/ul (150-450)
[2018-02-14 05:42] LABS: INR 1.68 (0.77-1.02)
[2018-02-14] MEDS: FLUoxetine CAP* 20 MG PO SCH (08:46)
[2018-02-14] MEDS: oxyCODONE/Acetamin 5/325 MG* TAB PO PRN ×2 (08:46→12:43)
[2018-02-14] MEDS: Metoprolol Succinate XL TAB* 50 MG PO SCH (08:46)
[2018-02-14] MEDS: Ferrous Sulfate TAB* 325 MG PO SCH (08:46)
[2018-02-14] MEDS: Vitamin THERAPEUTIC TAB PO SCH (08:47)
[2018-02-14] MEDS: carBAMazepine TAB(*) 200 MG PO SCH (08:47)
[2018-02-14] MEDS: OLANzapine TAB* 5 MG PO SCH (08:47)
[2018-02-14] MEDS: Docusate CAP* 100 MG PO SCH (08:49)
[2018-02-14] MEDS: Magnesium Hydroxide LIQ* 30 ML UDC PO SCH (08:49)
--- NOTE | 2018-02-14 11:18 | PN ---
Progress Note - Progress Note Date of Service: 02/14/18 SOAP: Subjective: 62 y/o male s/p left total hip arthroplasty 02/10/[address] Garcia. Patient feeling anxious, did well with PT yesterday and was pleased with progress, however incontinent last night and fearful over D/C due to this. Patient encouarged, feels ready for D/C now. Pain controlled well. VSS, afebrile overnight. Objective: General- Well appearing, NAD, AO Resting in bed comfortably MSK- LLE- DF/PF = b/l, PT 1+, negative homans sign, dressing removed, incision c/d/i, minimal ecchymosis distal incision, no erythema. redressed, SITLT. Vital Signs Temp 98.0 F 02/14/18 07:31 Pulse 89 02/14/18 07:31 Resp 18 02/14/18 08:46 BP 130/56 02/14/18 07:31 Pulse Ox 96 02/14/18 07:36 Intake & Output 02/13/18 02/14/18 02/14/18 18:59 06:59 18:59 Intake Total 1000 300 Output Total 500 200 Balance 500 100 Intake: Oral 1000 300 Output: Urine 500 200 Other: Estimated Void Medium Large Medium Date of Last Bowel 02/14/18 02/14/18 Movement # Bowel Movements 1 1 Estimated Stool Amount Medium Large # Voids 1 2 Assessment: Stable 62 y/o male s/p left total hip arthroplasty 02/10/[address] Garcia. Plan: - DVT prophylaxis- lovenox, coumadin- countine coumadin as outpatient. - Continue PT/ OT - encourage patient. - Follow up with Dr. Garcia within 10-11 days - H&H - post-op anemia however stable over past 24 hours - post-op IV ABX - completed. Acetaminophen (Tylenol Tab*) 650 mg PO Q4H PRN PRN Reason: PAIN OR TEMPERATURE Last Admin: 02/13/18 22:09 Dose: 650 mg Bisacodyl (Dulcolax Supp*) 10 mg [place] DAILY PRN PRN Reason: constipation Last Admin: 02/14/18 04:19 Dose: 10 mg Carbamazepine (Tegretol Tab(*)) 200 mg PO BID [facility] Last Admin: 02/14/18 08:47 Dose: 200 mg Cyclobenzaprine HCl (Flexeril Tab*) 5 mg PO TID PRN PRN Reason: SPASMS Last Admin: 02/13/18 14:03 Dose: 5 mg Diphenhydramine HCl (Benadryl Iv*) 25 mg IV Q6H PRN PRN Reason: itching Docusate Sodium (Colace Cap*) 100 mg PO BID [facility] Last Admin: 02/14/18 08:49 Dose: Not Given Enoxaparin Sodium (Lovenox(*)) 30 mg SUBCUT Q24H [facility] Last Admin: 02/13/18 11:44 Dose: 30 mg Famotidine (Pepcid Tab*) 20 mg PO BEDTIME [facility] PRN Reason: Protocol Last Admin: 02/13/18 20:18 Dose: 20 mg Ferrous Sulfate (Ferrous Sulfate Tab*) 325 mg PO QAM [facility] Last Admin: 02/14/18 08:46 Dose: 325 mg Fluoxetine HCl (Prozac Cap*) 40 mg PO QAM [facility] Last Admin: 02/14/18 08:46 Dose: 40 mg Hydroxyzine HCl (Atarax Tab*) 25 mg PO QID PRN PRN Reason: ANXIETY Last Admin: 02/12/18 13:33 Dose: 25 mg Lactated Ringer's (Lactated Ringers 1000 Ml Bag*) 500 mls @ 1,000 mls/hr IV .BOLUS [facility] Last Admin: 02/11/18 08:13 Dose: 500 mls/hr Lactulose (Lactulose*) 30 ml PO Q6H PRN PRN Reason: constipation Magnesium Hydroxide (Milk Of Magnesia Liq*) 30 ml PO BID [facility] Last Admin: 02/14/18 08:49 Dose: Not Given Magnesium Hydroxide (Milk Of Magnesia Liq*) 30 ml PO Q6H PRN PRN Reason: constipation Metoprolol Succinate (Toprol Xl Tab*) 50 mg PO QAM [facility] Last Admin: 02/14/18 08:46 Dose: 50 mg Metoprolol Succinate (Toprol Xl Tab*) 100 mg PO QPM [facility] Last Admin: 02/13/18 17:25 Dose: 100 mg Morphine Sulfate (Morphine Vial*) 2 mg IV Q2H PRN PRN Reason: PAIN Multivitamins (Theragran Tab*) 1 tab PO DAILY [facility] Last Admin: 02/14/18 08:47 Dose: 1 tab Olanzapine (Zyprexa Tab*) 5 mg PO BID [facility] Last Admin: 02/14/18 08:47 Dose: 5 mg Ondansetron HCl (Zofran Inj*) 4 mg IV Q6H PRN PRN Reason: nausea Last Admin: 02/14/18 08:46 Dose: 4 mg Oxycodone HCl (Roxycodone Tab*) 10 mg PO Q4H PRN PRN Reason: PAIN - SEVERE Last Admin: 02/14/18 04:15 Dose: 10 mg Oxycodone/Acetaminophen (Percocet 5/325 Tab*) 2 tab PO Q4H PRN PRN Reason: PAIN Last Admin: 02/14/18 08:46 Dose: 2 tab Oxycodone/Acetaminophen (Percocet 5/325 Tab*) 1 tab PO Q4H PRN PRN Reason: PAIN Last Admin: 02/14/18 00:14 Dose: 1 tab Senna (Senokot Tab*) 2 tab PO BEDTIME PRN PRN Reason: CONSTIPATION Vital Signs Temp Pulse Resp BP Pulse Ox 98.0 F 89 18 130/56 96 02/14/18 07:31 02/14/18 07:31 02/14/18 08:46 02/14/18 07:31 02/14/18 07:36
--- NOTE | 2018-02-14 12:09 | PN ---
Subjective Date of Service: 02/14/18 Interval History: Reports that he is feeling well today, denies any chest pain or shortness of breath. Denies abd pain n/v/d. denies foot or leg pain. Family History: Unchanged from Admission Social History: Unchanged from Admission Past Medical History: Unchanged from Admission Objective Active Medications: Acetaminophen (Tylenol Tab*) 650 mg PO Q4H PRN PRN Reason: PAIN OR TEMPERATURE Last Admin: 02/13/18 22:09 Dose: 650 mg Bisacodyl (Dulcolax Supp*) 10 mg DE DAILY PRN PRN Reason: constipation Last Admin: 02/14/18 04:19 Dose: 10 mg Carbamazepine (Tegretol Tab(*)) 200 mg PO BID [facility] Last Admin: 02/14/18 08:47 Dose: 200 mg Cyclobenzaprine HCl (Flexeril Tab*) 5 mg PO TID PRN PRN Reason: SPASMS Last Admin: 02/13/18 14:03 Dose: 5 mg Diphenhydramine HCl (Benadryl Iv*) 25 mg IV Q6H PRN PRN Reason: itching Docusate Sodium (Colace Cap*) 100 mg PO BID [facility] Last Admin: 02/14/18 08:49 Dose: Not Given Enoxaparin Sodium (Lovenox(*)) 30 mg SUBCUT Q24H [facility] Last Admin: 02/13/18 11:44 Dose: 30 mg Famotidine (Pepcid Tab*) 20 mg PO BEDTIME [facility] PRN Reason: Protocol Last Admin: 02/13/18 20:18 Dose: 20 mg Ferrous Sulfate (Ferrous Sulfate Tab*) 325 mg PO QAM [facility] Last Admin: 02/14/18 08:46 Dose: 325 mg Fluoxetine HCl (Prozac Cap*) 40 mg PO QAM [facility] Last Admin: 02/14/18 08:46 Dose: 40 mg Hydroxyzine HCl (Atarax Tab*) 25 mg PO QID PRN PRN Reason: ANXIETY Last Admin: 02/12/18 13:33 Dose: 25 mg Lactated Ringer's (Lactated Ringers 1000 Ml Bag*) 500 mls @ 1,000 mls/hr IV .BOLUS [facility] Last Admin: 02/11/18 08:13 Dose: 500 mls/hr Lactulose (Lactulose*) 30 ml PO Q6H PRN PRN Reason: constipation Magnesium Hydroxide (Milk Of Magnesia Liq*) 30 ml PO BID [facility] Last Admin: 02/14/18 08:49 Dose: Not Given Magnesium Hydroxide (Milk Of Magnesia Liq*) 30 ml PO Q6H PRN PRN Reason: constipation Metoprolol Succinate (Toprol Xl Tab*) 50 mg PO QAM [facility] Last Admin: 02/14/18 08:46 Dose: 50 mg Metoprolol Succinate (Toprol Xl Tab*) 100 mg PO QPM [facility] Last Admin: 02/13/18 17:25 Dose: 100 mg Morphine Sulfate (Morphine Vial*) 2 mg IV Q2H PRN PRN Reason: PAIN Multivitamins (Theragran Tab*) 1 tab PO DAILY [facility] Last Admin: 02/14/18 08:47 Dose: 1 tab Olanzapine (Zyprexa Tab*) 5 mg PO BID [facility] Last Admin: 02/14/18 08:47 Dose: 5 mg Ondansetron HCl (Zofran Inj*) 4 mg IV Q6H PRN PRN Reason: nausea Last Admin: 02/14/18 08:46 Dose: 4 mg Oxycodone HCl (Roxycodone Tab*) 10 mg PO Q4H PRN PRN Reason: PAIN - SEVERE Last Admin: 02/14/18 04:15 Dose: 10 mg Oxycodone/Acetaminophen (Percocet 5/325 Tab*) 2 tab PO Q4H PRN PRN Reason: PAIN Last Admin: 02/14/18 08:46 Dose: 2 tab Oxycodone/Acetaminophen (Percocet 5/325 Tab*) 1 tab PO Q4H PRN PRN Reason: PAIN Last Admin: 02/14/18 00:14 Dose: 1 tab Senna (Senokot Tab*) 2 tab PO BEDTIME PRN PRN Reason: CONSTIPATION Vital Signs - 8 hr 02/14/18 02/14/18 02/14/18 04:15 06:04 07:31 Temperature 98.0 F Pulse Rate 89 Respiratory 18 18 16 Rate Blood Pressure 130/56 (mmHg) O2 Sat by Pulse 85 Oximetry 02/14/18 02/14/18 07:36 08:46 Temperature Pulse Rate Respiratory 18 18 Rate Blood Pressure (mmHg) O2 Sat by Pulse 96 Oximetry Oxygen Devices in Use Now: Nasal Cannula Appearance: appears comfortable sitting in the chair Eyes: No Scleral Icterus Ears/Nose/Mouth/Throat: Clear Oropharnyx, Mucous Membranes Moist Neck: NL Appearance and Movements; NL JVP, Trachea Midline Respiratory: Symmetrical Chest Expansion and Respiratory Effort, Clear to Auscultation Cardiovascular: NL Sounds; No Murmurs; No JVD, No Edema Abdominal: NL Sounds; No Tenderness; No Distention Extremities: No Edema, No Clubbing, Cyanosis, - - dressing intact to left hip pedal pulses +2 bilat Skin: No Rash or Ulcers Neurological: Alert and Oriented x 3, NL Sensation Nutrition: Taking PO's Result Diagrams: 02/14/18 05:09 02/11/18 05:27 Additional Lab and Data: Laboratory Results - last 24 hr 02/11/18 02/11/18 02/11/18 05:27 05:27 05:27 Hgb 10.2 L Hct 30 L Plt Count 221 MPV 6.4 L INR (Anticoag Therapy) 1.13 H Sodium 130 L Potassium 4.1 Chloride 102 Carbon Dioxide 24 Anion Gap 4 BUN 13 Creatinine 0.71 Est GFR ( Amer) 144.1 Est GFR (Non-Af Amer) 112.1 BUN/Creatinine Ratio 18.3 Glucose 130 H Calcium 8.1 L Microbiology and Other Data: Microbiology 02/10/18 16:18 Nasal Nasal Screen MRSA (PCR)(PIERO) - Final Mrsa Not Detected Assess/Plan/Problems-Billing Assessment: 62 yo male PMH intellectual developmental delay, anxiety disorder, impulse control do, HTN, OA, s/p elective total left hip arthroplasty. - Patient Problems (1) Status post left hip replacement Current Visit: Yes Status: Acute Code(s): Z96.642 - PRESENCE OF LEFT ARTIFICIAL HIP JOINT SNOMED Code(s): 283452793 Comment: pain control per ortho Anticoagulation per ortho- would use caution with the anticoagulation therapy as patient did have a bleeding ulcer in 04/2016. (2) HTN (hypertension) Current Visit: No Status: Acute Code(s): I10 - ESSENTIAL (PRIMARY) HYPERTENSION SNOMED Code(s): 97060271 Comment: Continue metoprolol 50 qam, 100mg qpm (3) Iron deficiency anemia Current Visit: No Status: Acute Code(s): D50.9 - IRON DEFICIENCY ANEMIA, UNSPECIFIED SNOMED Code(s): 54286480 Comment: continue FeSO4 H/H 7.06/19 today- suspect this is related to surgery and hemodilution denies shortness of breath or dizziness (4) Mental retardation Current Visit: No Status: Acute Code(s): F79 - UNSPECIFIED INTELLECTUAL DISABILITIES SNOMED Code(s): 001240652 Comment: With impulse control disorder and axiety. Continue tegretol, zyprexa. (5) DVT prophylaxis Current Visit: Yes Status: Acute Code(s): OYY7805 - SNOMED Code(s): 922900126 Comment: as per orthopedics (6) Full code status Current Visit: Yes Status: Acute Code(s): Z78.9 - OTHER SPECIFIED HEALTH STATUS SNOMED Code(s): 897956903 Status and Disposition: ORTHO service, medicine consulting.
[2018-02-14 12:40] VITALS: BP 124/47
[2018-02-14] MEDS: Enoxaparin(*) 30 MG/0.3 ML SYR SUBCUT SCH (12:45)
--- NOTE | 2018-02-14 18:05 | DS ---
AMENDED REPORT NOW INCLUDES COSIGNER DESIGNATION - ESIGNED BEFORE ADJUSTMENT DISCHARGE SUMMARY: DATE OF SURGERY/ADMISSION: 02/10/18 DATE OF DISCHARGE: 02/14/18 ATTENDING PHYSICIAN: Dr. Tatiana Garcia.* (DICTATED BY MICHELLE CHAVEZ) CHIEF COMPLAINT: 1. Left hip pain. 2. Hypertension. 3. Iron-deficiency anemia. 4. Impulse control disorder. 5. Mental retardation. 6. Anxiety. 7. BPH. DISCHARGE DIAGNOSES: 1. Left total hip arthroplasty. 2. Hypertension. 3. Iron-deficiency anemia. 4. Impulse control disorder. 5. Mental retardation. 6. Anxiety. 7. BPH. CONSULTATIONS: 1. Physical Therapy. 2. Occupational Therapy. 3. Medicine. BRIEF HISTORY: Mr. Bsuh is a very pleasant 62-year-old gentleman with increasingly severe left hip pain and disability with severe degenerative osteoarthritis noted on outside examination. He has failed conservative treatment and elected to undergo a left total hip arthroplasty by Dr. Tatiana Garcia. HOSPITAL COURSE: The patient was admitted to [facility] on 02/10/18 where he underwent an uncomplicated left total hip arthroplasty with subchondral bone grafting using femoral head autograft by Dr. Tatiana Garcia with an estimated blood loss of 300 cc. The patient recovered on the surgical short- stay unit. He progressed well with physical therapy; however, was elected to be weightbearing status, requiring Veronica lift for most out of bed activities; however, this was the patient's baseline as he was doing Veronica lift as well prior to surgery at [facility]. The patient's pain was controlled with p.o. Percocet. He was started on his home medications. His labs and vital signs remain stable. He advanced appropriately with occupational therapy. His DVT prophylaxis was managed with Lovenox and Coumadin. By postoperative day 4, he was orthopedically and medically stable for discharge to go home with home services. PHYSICAL EXAMINATION: General: Well appearing, in no acute distress. Alert and oriented. Sitting in bed comfortably. The patient with anxiety; however, easily redirected. Musculoskeletal: Left lower extremity has positive dorsiflexion and plantarflexion equal bilaterally. Posterior tibial pulse on the left side 1+. Negative Homans sign. The dressing was removed. The incision was clean, dry and intact with minimal ecchymosis distal to the incision site. No erythema or induration. Area was redressed. Sensation was intact to light touch. Vital Signs: Temperature 98.0, pulse 80, respirations 18, blood pressure 130/56, pulse oxygenation is 96% on room air. LABORATORY DATA: On date of discharge include an H and H of 7.8 and 23 with an INR of 1.69. DISCHARGE MEDICATIONS: 1. Tylenol 650 mg p.o. q.4 to 6 hours for pain as needed, not to take more than 4000 mg a day. 2. Dulcolax suppository 10 mg p.r.n. for constipation. 3. Tegretol 200 mg p.o. b.i.d. 4. Flexeril 5 mg p.o. t.i.d. for muscle spasms. 5. Colace 100 mg p.o. b.i.d. 6. Ferrous sulfate 325 mg p.o. q.a.m. 7. Prozac 40 mg p.o. q.a.m. 8. Atarax 25 mg p.o. q.i.d. p.r.n. 9. Metoprolol XL 50 mg p.o. q.a.m. 10. Metoprolol XL 100 mg p.o. q.p.m. 11. Zyprexa 5 mg p.o. b.i.d. 12. Percocet 5/325 one-half tablet to 2 tablets as needed every 4 to 6 hours for pain. 13. Senokot 2 tablets p.o. q.h.s. 14. Lactobacillus tablets 1 tablet p.o. q.a.m. 15. Lactaid fast acting 3000 units p.o. t.i.d. CONDITION ON DISCHARGE: Stable. DISCHARGE INSTRUCTIONS: Mr. Bush is a very pleasant 62-year-old male status post a left total hip arthroplasty, which was uncomplicated. He is orthopedically and medically stable for discharge to return to [facility]. His labs and vital signs are stable. He will restart his home medications. He will take 8 mg of Coumadin on the , 6 mg on the , 6 mg on the with a repeat INR checked on 02/17/18. He will take Colace up to 3 times a day as needed for constipation as well as possibly Dulcolax or Senokot and will take Percocet minimal amount as needed for adequate pain control. He will have INR draws done on Wednesday and . He will be weightbearing as tolerated on the left lower extremity. He will require increased encouragements to work with physical therapy as his anxiety does prevent him from proceed himself. He will follow up with Dr. Garcia in approximately 10 days for incision check or suture removal or go to the ER should he develop chest pain or fever. He will call the office with any erythema, increased pain or drainage at the incision site. MICHELLE CHAVEZ [id number]/[facility] #: [id number] ESTHELA
== END 2018-02-14 15:18 | DRG 470 ==
LOC: AA 02-10 07:38 → SSU 02-10 15:51
PROVIDERS: ADMIT Orthopaedic Surgery Adult Reconstructive Orthopaedic Surgery; ATTEND Orthopaedic Surgery Adult Reconstructive Orthopaedic Surgery
PROC: 0QU507Z Supplement Left Acetabulum with Autologous Tissue Substitute, Open Approach (ICD-10-PCS; 2018-02-10)
PROC: 0SRB04A Replacement of Left Hip Joint with Ceramic on Polyethylene Synthetic Substitute, Uncemented, Open Approach (ICD-10-PCS; principal; 2018-02-10 11:00)
DX: M16.12 Unilateral primary osteoarthritis, left hip (principal); I10 Essential (primary) hypertension; D50.9 Iron deficiency anemia, unspecified; F63.9 Impulse disorder, unspecified; F41.9 Anxiety disorder, unspecified; N40.0 Benign prostatic hyperplasia without lower urinary tract symptoms; F79 Unspecified intellectual disabilities; K21.9 Gastro-esophageal reflux disease without esophagitis; G89.29 Other chronic pain; M25.552 Pain in left hip; F81.9 Developmental disorder of scholastic skills, unspecified; M85.68 Other cyst of bone, other site; F32.9 Major depressive disorder, single episode, unspecified; R32 Unspecified urinary incontinence; I95.9 Hypotension, unspecified; R20.0 Anesthesia of skin; M79.672 Pain in left foot; R00.0 Tachycardia, unspecified; E73.9 Lactose intolerance, unspecified; E66.9 Obesity, unspecified; K27.9 Peptic ulcer, site unspecified, unspecified as acute or chronic, without hemorrhage or perforation; Z96.641 Presence of right artificial hip joint; Z82.3 Family history of stroke; Z80.8 Family history of malignant neoplasm of other organs or systems; Z83.79 Family history of other diseases of the digestive system; Z84.1 Family history of disorders of kidney and ureter; Z68.35 Body mass index [BMI] 35.0-35.9, adult; Z99.3 Dependence on wheelchair; Z74.01 Bed confinement status; Z79.01 Long term (current) use of anticoagulants
CPT/HCPCS: 36415; 80048; 85014; 85018; 85049; 85610; 85730; 86850; 86900; 86901; 87641; 88304; 88311; 93005; A9270-GY; C1713; C1776; G8978-GP-CM; G8979-GP-CJ; G8987-GO-CL; G8988-GO-CJ; G8989-GO-CJ; J0330; J0690; J1100; J1170; J1240; J1650; J1885; J2250; J2405; J2704; J3010

== ENCOUNTER 2018-05-21 21:35 | Inpatient (IN) | payer MEDICARE, MEDICAID ==
[2018-05-21] MEDS ORDERED: NS 0.9% 1000 ML*IV.FLUID IV ONE (22:38)
--- NOTE | 2018-05-21 22:49 | ED ---
HPI Febrile Illness - HPI Summary HPI Summary: This patient is a 62 year old M BIBA to [facility] with a chief complaint of intermittent fever since earlier today. The patient rates the pain 0/10 in severity. Symptoms aggravated by nothing. Symptoms alleviated by nothing. Patient reports nausea and abd pain. Patient denies cough, dysuria, or SOB. Patient reports that he has been taking Tylenol but it has not alleviated his symptoms. Per triage note, patient also reports increased weakness. - History of Current Complaint Chief Complaint: EDFever Time Seen by Provider: 05/21/18 22:34 Hx Obtained From: Patient Onset/Duration: Started Hours Ago, Atraumatic, Still Present Timing: Intermittent, Lasting Hours Current Severity: None Pain Intensity: 0 Pain Scale Used: 0-10 Numeric Aggravating Factors: Nothing Alleviating Factors: Nothing Associated Signs and Symptoms: Nausea, Other: - abdominal pain - Additional Pertinent History Primary Care Physician: [id number] - Allergy/Home Medications Allergies/Adverse Reactions: Allergies Allergy/AdvReac Type Severity Reaction Status Date / Time ondansetron Allergy Mild Unknown Verified 02/10/18 16:00 Reaction Details lactose Allergy GI Upset Verified 02/10/18 08:20 PMH/Surg Hx/FS Hx/Imm Hx Endocrine/Hematology History: Reports: Hx Anemia - 2015 [place] AND IRON GOOD NOW Cardiovascular History: Reports: Hx Hypertension Denies: Hx Pacemaker/ICD GI History: Reports: Hx Gastroesophageal Reflux Disease, Hx Irritable Bowel, Hx Ulcer, Other GI Disorders - ANIETY AND LACTOSE INTOLERANCE History: Reports: Hx Benign Prostatic Hyperplasia Musculoskeletal History: Reports: Hx Arthritis, Hx Bursitis - LEFT ARM, Other Musculoskeletal History - SURGERY RECENT QUAD TENDON RIGHT KNEE YASSEEN Sensory History: Denies: Hx Contacts or Glasses, Hx Legally Blind, Hx Deafness, Hx Hearing Aid Opthamlomology History: Denies: Hx Contacts or Glasses, Hx Legally Blind Neurological History: Reports: Other Neuro Impairments/Disorders - ddd/ aniexty disorder Psychiatric History: Reports: Hx Anxiety, Hx Depression, Hx Community Mental Health Tx - [place], Other Psychiatric Issues/Disorders - impulse control disorder Denies: Hx Panic Disorder - Surgical History Surgery Procedure, Year, and Place: Right hip replacement 1999 Hx Anesthesia Reactions: No Infectious Disease History: No Infectious Disease History: Denies: Traveled Outside the [place] in Last 30 Days - Family History Known Family History: Positive: Cardiac Disease, Hypertension Negative: Diabetes - Social History Alcohol Use: None Hx Substance Use: No Substance Use Type: Reports: None Hx Tobacco Use: No Smoking Status (MU): Never Smoked Tobacco Review of Systems Positive: Fever Negative: Shortness Of Breath, Cough Positive: Abdominal Pain, Nausea. Negative: Vomiting Negative: dysuria All Other Systems Reviewed And Are Negative: Yes Physical Exam - Summary Physical Exam Summary: Appearance: Well-appearing, Well-nourished, lying in bed comfortably Skin: Warm, dry, no obvious rash Eyes: sclera anicteric, no conjunctival pallor ENT: mucous membranes moist, pharynx appears normal Neck: Supple, nontender Respiratory: Clear to auscultation, no signs of respiratory distress Cardiovascular: Normal S1, S2. No murmurs. Normal distal pulses in tibial and radial bilaterally. Abdomen: Soft, nontender, normal active bowel sounds present Musculoskeletal: Normal, Strength/ROM Intact Neurological: A&Ox3, awake and alert, mentation is normal, speech is fluent and appropriate Psychiatric: affect is normal, does not appear anxious or depressed Triage Information Reviewed: Yes Vital Signs On Initial Exam: Initial Vitals Temp Pulse Resp BP Pulse Ox 99 F 84 16 134/73 98 05/21/18 22:06 05/21/18 22:06 05/21/18 22:06 05/21/18 22:06 05/21/18 22:06 Vital Signs Reviewed: Yes Diagnostics - Vital Signs Vital Signs Temp Pulse Resp BP Pulse Ox 05/21/18 22:06 99 F 84 16 134/73 98 - Laboratory Result Diagrams: 05/21/18 23:10 05/21/18 23:10 Lab Statement: Any lab studies that have been ordered have been reviewed, and results considered in the medical decision making process. - Radiology CXR Xray Interpretation: No Acute Changes - nml CXR Radiology Interpretation Completed By: ED Physician - Dr. Mercer, pending official report Course/Dx - Diagnoses Provider Diagnoses: Fever, UTI (urinary tract infection), Leukocytosis - Provider Notifications Discussed Care Of Patient With: Fransisco Ramos MD Time Discussed With Above Provider: 00:49 Instructed by Provider To: Admit As Inpatient Discharge - Sign-Out/Discharge Documenting (check all that apply): Patient Departure - Discharge Plan Condition: Stable Disposition: ADMITTED TO [facility] Referrals: Jeanmarie Nesbitt MD [Primary Care Provider] - - Billing Disposition and Condition Condition: STABLE Disposition: Admitted to [facility] - Attestation Statements Document Initiated by Ricci: Yes Documenting Scribe: Deepti Mujica Provider For Whom Ricci is Documenting (Include Credential): Js Mercer MD Scribe Attestation: Deepti Mensah, matthewibed for Js Mercer MD on 05/22/18 at 0234. Scribe Documentation Reviewed: Yes Provider Attestation: The documentation as recorded by the matthewibe, eDepti Mujica accurately reflects the service I personally performed and the decisions made by me, Js Mercer MD
--- OUTSIDE RECORDS SUMMARY | 2018-05-21 23:06 | XMS REPORT ---
:1955 External Reference #:[id number] Author Organization [facility] Address [address] [place] [address] Phone [phone] Care Team Providers Name Role Phone Eve Moody DO Care Team Information Seo Associate Unavailable Jeanmarie Nesbitt MD Primary Care Physician Unavailable Payers Type Date Identification Numbers Payment Provider Subscriber Medicare Primary Policy Number: [id number] Medicare Kelvin Bush PayID: [id number] [address] [place] [address] [facility] Part B Policy Number: [id number] Medicaid Kelvin Bush Group Name: 1 1 [address] PayID: [id number] [place] [address] Problems Date Description Provider Status Onset: 10/21/2017 Sprain of hip Sahil Sotelo MD Active Onset: 11/10/2017 Localized, primary osteoarthritis of Tatiana Garcia M.D. Active the pelvic region and thigh Onset: 01/13/2018 Arthralgia of the pelvic region and Tatiana Garcia M.D. Active thigh Onset: 01/13/2018 Strain of right quadriceps muscle, Eve Moody D.O. Active fascia and tendon, subs Onset: 01/13/2018 Essential hypertension Eve Moody D.O. Active Onset: 01/13/2018 Mental retardation Eve Moody D.O. Active Onset: 01/13/2018 Impulse control disorder Eve Moody D.O. Active Onset: 01/13/2018 Open wound of knee and/or leg and/or Eve Moody D.O. Active ankle Onset: 01/13/2018 Anxiety state Eve Moody D.O. Active Onset: 01/13/2018 Tachycardia Bertha Hendrix NP Active Onset: 01/13/2018 Fever Bertha Hendrix NP Active Onset: 01/13/2018 Encounter for other orthopedic Sahil Sotelo MD Active aftercare Onset: 01/13/2018 Inj right quadriceps muscle, fascia and Eve Moody D.O. Active tendon, subs encntr Onset: 01/13/2018 Iron deficiency anemia Eve Moody D.O. 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 Metoprolol Active Tablets ER 100mg 1 by mouth I10 [place], Succinate ER /0000 24HR every day Eve, DO Olanzapine 00 Active Tablets 5mg 1 tab po [place], /0000 bid Eve, DO Ranitidine HCL Active Tablets 150mg take one [place], /0000 tablet by Eve, mouth at DO hs Sennosides Active Tablets 8.6mg 2 tabs po K59.00 [place], /0000 Q hs Eve, DO Metoprolol Active Tablets ER 50mg 1 by mouth Unknown Succinate ER /0000 24HR every day Carbamazepine Active Tablets 200mg 2 by mouth Unknown /0000 in the am, 1 by mouth in the pm Lactobacillus Active Tablets 1 by mouth [place], /0000 every day Eve, DO Bisacodyl 00 Active Suppository 10mg every 24 Unknown /0000 hours as needed Cyclobenzaprine 00 Active Tablets 5mg take one Unknown HCL /0000 tablet by mouth every 8 hours prn Oxycodone-Acetami Active Solution 5-325mg/5 take 1 by Unknown nophen /0000 ML mouth every 6 hours as needed for break through pain mdd=4 tabs, note scheduled amount Docusate Sodium Active Capsules 100mg 1 tab Unknown /0000 every 12 hours as needed for constipati on Hydrocodone-Aceta 01/20 Hx Tablets 5-325mg 30tab 1 tab po Q M25.552 Katarina min s Marybeth, - [employer]EL[employer] DEFENSE IN[employer]CTOR 01/25 Acetaminophen 01/13 Hx Tablets 500mg 2 [facility] S[employer] DEFENSE INSTRUCTOR 04/28 Santyl 01/13 Hx Ointment 250Unit/G 30gm as orderd sg M to Paul Murillo MD 04/28 Carbamazepine Hx Tablets 200mg take 2 Unknown /0000 tablets - every 10/28 morning and take 3 tablets at bedtime Hydrocodone-Aceta Hx Tablets 5-325mg 1 tab by [place], minophen /0000 mouth Eve, - every 4 DO 01/25 hours needed for pain Prochlorperazine Hx Tablets 10mg Unknown Maleate /0000 Acetaminophen 00 Hx Tablets 500mg 2 tablets Unknown /0000 by mouth - every 6 01/13 hours needed for pain/fever Bacitracin 00/ Hx Unknown (External) /0000 - 01/13 Loperamide HCL 00 Hx Capsules 2mg take one [place], /0000 capsule by Eve, - mouth DO 04/28 every hours as needed Senna-Tabs 00/ Hx Tablets 8.6mg 2 tabs at Unknown /0000 at bedtime - 01/13 Warfarin Sodium 00 Hx Tablets 7mg 1 by mouth Unknown /0000 every day - 04/28 Oxycodone-Acetami Hx Tablets 5-325mg 1-2 tabs Unknown nophen /0000 by mouth - every 4-6 03/14 hours needed for pain Vital Signs Date Vital Result Comment 05/05/2018 Height 71.5 inches 5'11.50" Weight 250.00 lb Heart Rate 68 /min BP Systolic Sitting 104 mmHg BP Diastolic Sitting 66 mmHg Respiratory Rate 16 /min Pain Level 3 BMI (Body Mass Index) 34.4 kg/m2 04/29/2018 Height 71.5 inches 5'11.50" Weight 250.00 lb BP Systolic 126 mmHg BP Diastolic 70 mmHg Body Temperature 97.9 F BMI (Body Mass Index) 34.4 kg/m2 04/25/2018 Weight 253.38 lb 03/14/2018 Height 71.5 inches 5'11.50" Weight 250.00 lb BP Systolic Sitting 122 mmHg BP Diastolic Sitting 72 mmHg Respiratory Rate 16 /min Body Temperature 98.0 F Pain Level 0 BMI (Body Mass Index) 34.4 kg/m2 02/23/2018 Height 71.5 inches 5'11.50" Heart Rate 68 /min BP Systolic Sitting 122 mmHg BP Diastolic Sitting 80 mmHg Respiratory Rate 16 /min Pain Level 0 01/24/2018 Heart Rate 70 /min BP Systolic Sitting 140 mmHg BP Diastolic Sitting 66 mmHg Respiratory Rate 18 /min Body Temperature 98.6 F Pain Level 3 O2 % BldC Oximetry 98 % 01/17/2018 Height 71.5 inches 5'11.50" Heart Rate 89 /min BP Systolic 140 mmHg BP Diastolic 74 mmHg Respiratory Rate 18 /min Body Temperature 97.7 F Pain Level 0 01/05/2018 Height 71.5 inches 5'11.50" Weight 258.00 lb Heart Rate 76 /min BP Systolic 142 mmHg BP Diastolic 80 mmHg Respiratory Rate 14 /min Body Temperature 97.5 F Pain Level 0 BMI (Body Mass Index) 35.5 kg/m2 12/30/2017 Height 71.5 inches 5'11.50" Weight 280.00 lb Heart Rate 80 /min BP Systolic 136 mmHg BP Diastolic 80 mmHg Body Temperature 97.8 F Pain Level 0 BMI (Body Mass Index) 38.5 kg/m2 12/08/2017 Height 71.5 inches 5'11.50" Weight 280.00 lb BP Systolic 118 mmHg BP Diastolic 71 mmHg Respiratory Rate 16 /min Body Temperature 96.8 F Pain Level 1 BMI (Body Mass Index) 38.5 kg/m2 12/07/2017 Height 71.5 inches 5'11.50" Weight 280.00 lb BP Systolic 126 mmHg BP Diastolic 72 mmHg Respiratory Rate 20 /min Pain Level 0 BMI (Body Mass Index) 38.5 kg/m2 11/25/2017 Height 71.5 inches 5'11.50" Weight 280.00 lb per pt Heart Rate 84 /min reg BP Systolic Sitting 110 mmHg Lue BP Diastolic Sitting 70 mmHg Lue Respiratory Rate 16 /min Pain Level 0 BMI (Body Mass Index) 38.5 kg/m2 11/10/2017 Height 71.5 inches 5'11.50" Weight 280.00 lb Heart Rate 75 /min BP Systolic 130 mmHg BP Diastolic 86 mmHg Respiratory Rate 16 /min Body Temperature 97.7 F Pain Level 0 BMI (Body Mass Index) 38.5 kg/m2 11/09/2017 Height 71.5 inches 5'11.50" Weight 190.00 lb BP Systolic 126 mmHg BP Diastolic 76 mmHg Respiratory Rate 18 /min Pain Level 0 BMI (Body Mass Index) 26.1 kg/m2 10/29/2017 Height 71.5 inches 5'11.50" Weight 190.00 lb BP Systolic 130 mmHg BP Diastolic 68 mmHg Respiratory Rate 20 /min Pain Level 0 BMI (Body Mass Index) 26.1 kg/m2 10/21/2017 Height 71.5 inches 5'11.50" Weight 190.00 lb Heart Rate 98 /min BP Systolic 120 mmHg BP Diastolic 73 mmHg Respiratory Rate 16 /min Body Temperature 97.7 F Pain Level 0 BMI (Body Mass Index) 26.1 kg/m2 10/21/2017 Height 71.5 inches 5'11.50" Respiratory Rate 16 /min 10/15/2017 Height 71.5 inches 5'11.50" Weight 270.00 lb BP Systolic 126 mmHg BP Diastolic 74 mmHg Respiratory Rate 15 /min Body Temperature 97.5 F Pain Level 1 BMI (Body Mass Index) 37.1 kg/m2 Results Description No Information Procedures Date CPT Code Description Status 02/13/2018 16238 EKG, Interpretation Only Completed 02/10/2018 14042 THR Total Hip Replacement Completed 02/10/2018 02271 THR Total Hip Replacement Completed 10/04/2017 54306 Suture Of Quadriceps Or Hamstring Muscle Repair;Primary Completed 10/04/2017 83871 Suture Of Quadriceps Or Hamstring Muscle Repair;Primary Completed Encounters Type Date Location Provider CPT E/M Dx Office Visit 04/25/2018 9:15a [facility] Katarina Rueda, SELF DEFENSE INSTRUCTOR 30769 I10 S76.111D D50.9 Z96.642 F63.9 Office Visit 02/16/2018 10:00a [facility] Katarina Rueda, SELF DEFENSE INSTRUCTOR 83211 R60.0 Office Visit 02/16/2018 8:00a [facility] Eve Moody D.O. 93484 F63.9 D50.9 I10 Z96.642 Office Visit 02/14/2018 8:36a [facility], [place] [address] I10 Hospitalists R62.50 F41.9 Z96.642 Office Visit 02/13/2018 8:35a [facility], [place] [address] I10 Hospitalists R62.50 F41.9 Z96.642 Office Visit 02/12/2018 8:33a [facility], [place] [address] I10 Hospitalists R62.50 F41.9 Z96.642 Office Visit 02/11/2018 8:32a [facility], [place] [address] I10 Hospitalists R62.50 F41.9 Z96.642 Office Visit 02/10/2018 8:31a [facility], [place] [address] I10 Hospitalists R62.50 F41.9 Z96.642 Office Visit 02/03/2018 11:15a [facility] Eve Moody D.O. 88262 M16.12 I10 F63.9 S76.111D Office Visit 01/24/2018 8:30a [facility] R[facility]a, SELF DEFENSE INSTRUCTOR 52113 Z01.818 M25.552 M16.12 I10 F79 F63.9 F41.9 D50.9 Office Visit 01/17/2018 1:15p [facility] Garcia M.D. 26840 M25.552 C.MAshleyAAshley M16.12 Office Visit 01/05/2018 9:30a [facility] M.D. 99636 M25.552 C.MAshleyAAshley M16.12 Office Visit 01/04/2018 11:45a [facility] Sarahy RuizOAshley 15262 S76.111D I10 F79 F63.9 Office Visit 12/16/2017 9:45a [facility] Sarahy RuizOAshley 21723 S76.111D I10 S81.801A F79 F41.9 Office Visit 12/08/2017 10:00a [facility] M.D. 30573 M16.12 C.M.A. M25.552 Office Visit 11/22/2017 8:00a [facility], SELF DEFENSE INSTRUCTOR 80944 S81.801A Office Visit 11/12/2017 8:45a [facility] JUNE Rueda 26134 S76.111A F79 F63.9 I10 Office Visit 11/10/2017 9:00a [facility] M.D. 16692 M16.12 C.M.A. M25.552 F79 Office Visit 11/04/2017 9:15a [facility] Sarahy RuizOAshley 16578 S76.111D F79 F63.9 I10 Office Visit 10/25/2017 8:15a [facility] Bertha Hendrix, JUNE 75514 R00.0 R50.9 Office Visit 10/08/2017 8:45a [facility] [place] [address] R00.0 R50.9 Office Visit 10/07/2017 10:45a [facility] Eve Moody D.O. G9744 F63.9 S76.191D I10 D50.9 Office Visit 10/04/2017 9:40a [facility] [place] [address] S76.111A C.M.A. Office Visit 10/01/2017 1:46p [facility] Marybeth, 49855 S76.111A Assoc,[facility] Hospitalists SELF DEFENSE INSTRUCTOR F41.9 F63.9 I10 Plan of Care 04/25/2018 - Katarina Rueda, NPI10 Essential (primary) hypertensionComments: With acceptable controlSuspect transient elevations due to agitationContinue current regimen of yjzxibtixgU46.111D Strain of right quadriceps muscle, fascia and tendon, subsComments:Appropriately healingContinue PT/OTD50.9 Iron deficiency anemia, unspecifiedComments:StableContinue ferrous vweblmvN62.642 Presence of left artificial hip jointComments:With acceptable pain controlContinue prn APAPFollow up with ortho as directedContinue PT/OTF63.9 Impulse disorder, unspecifiedComments:StableContinue olanzapine, carbamazepine, fluoxetine
[2018-05-21 23:27] LABS: Hematocrit 42 % (42-52); Mean Corpuscular HGB Conc 33 g/dl (31-36); Mean Corpuscular Hemoglobin 28 pg (27-31); Mean Corpuscular Volume 83 fL (80-94); Platelet Count 195 10^3/ul (150-450); Red Blood Count 5.02 10^6/ul (4.00-5.40); Red Cell Distribution Width 17 % (10.5-15); White Blood Count 20.5 10^3/ul (3.5-10.8)
[2018-05-21 23:31] LABS: INR 1.33 (0.77-1.02)
[2018-05-21 23:34] LABS: Urine Appearance Cloudy; Urine Blood 2+ (Negative); Urine Color Yellow; Urine Ketones Negative (Negative); Urine Protein Negative (Negative); Urine Red Blood Cell 1+(3-5/hpf) (Absent); Urine Specific Gravity 1.012 (1.010-1.030); Urine Urobilinogen Negative (Negative); Urine White Blood Cell 3+(>20/hpf) (Absent)
[2018-05-21 23:41] LABS: EGFR Non-African American 96.2 (>60)
[2018-05-21 23:45] LABS: ABS Basophils 0.1 10^3/ul (0-0.2); ABS Eosinophils 0 10^3/ul (0-0.6); ABS Monocytes 1.7 10^3/ul (0-0.8); ABS Neutrophils 17.7 10^3/ul (1.5-7.7); ABS Nucleated RBC 0 10^3/ul
[2018-05-22 00:27] LABS: Eosinophil % 0 % (0-6); Lymphocyte % 4.8 % (25-47); Nucleated Red Blood Cells % 0
[2018-05-22] MEDS ORDERED: cefTRIAXone(*) 1 GM in NS 0.9% 50 ML* 50 ML IVPB ONE (00:43)
--- NOTE | 2018-05-22 02:50 | HP ---
H&P (Free Text) History and Physical: PCP: Dustin Nesbitt MD Date/Time: 05/22/2018 0325 CC: fever, malaise HPI: Mr Bush is a 62YO male resident of [facility] who is a poor historian, HX HTN, congenital cognitive disorder with impulse control, anxiety who presents reporting onset of fever of 102F associated with malaise, generalized myalgia, lower abdominal discomfort, & mild headache, but no chills, sweats, chest pain, cough, congestion, N/V/D, B/U/F of urine, or other issues. PMedHx HTN congenital cognitive disorder with impulse control anxiety iron deficiency anemia BPH L JOSE 01/2018 on warfarin Ambulatory Orders Nursing to reconcile. FLUoxetine CAP* [Prozac CAP*] 40 mg PO QAM 08/25/14 OLANzapine TAB* [Zyprexa 5 MG TAB*] 5 mg PO BID 08/25/14 carBAMazepine TAB(*) [Tegretol TAB(*)] 200 mg PO BID 08/25/14 hydrOXYzine HCL TAB* [Atarax 25 MG TAB*] 25 mg PO QID PRN 06/24/16 Metoprolol Succinate XL TAB* [Toprol XL TAB*] 50 mg PO QAM 10/01/17 Metoprolol Succinate XL TAB* [Toprol XL TAB*] 100 mg PO QPM 10/01/17 Ranitidine TAB (NF) [Zantac TAB (NF)] 150 mg PO BEDTIME 10/01/17 carBAMazepine TAB(*) [Tegretol TAB(*)] 400 mg PO BEDTIME 10/01/17 Senna TAB* [Senokot TAB*] 2 tab PO BEDTIME PRN tab 10/06/17 Cyclobenzaprine HCl 5 mg PO BEDTIME 01/28/18 Lactase Enzyme (NF) [Lactaid Fast Act (NF)] 3,000 unit PO TID 01/28/18 Lactobacillus Acidophilus/Pect [Acidophilus-Pectin Capsule] 1 each PO QAM Ferrous Sulfate TAB* 325 mg PO QAM 02/09/18 Acetaminophen TAB* [Tylenol TAB*] 650 mg PO Q4H PRN tab 02/14/18 Acetaminophen TAB* [Tylenol TAB*] 650 mg PO TID PRN #0 02/14/18 Bisacodyl SUPP* [Dulcolax Supp*] 10 mg SC DAILY PRN supp 02/14/18 Cyclobenzaprine TAB* [Flexeril 10 MG TAB*] 5 mg PO TID PRN tab 02/14/18 Docusate CAP* [Colace Cap*] 100 mg PO BID cap 02/14/18 oxyCODONE/Acetamin 5/325 MG* [Percocet 5/325 TAB*] 1 tab PO Q4H PRN #60 tab MDD 8 02/14/18 Allergies ondansetron Allergy (Mild, Verified 02/10/18 16:00) Unknown Reaction Details interacts with mental health meds lactose Allergy (Verified 02/10/18 08:20) GI Upset SocHx: no tobacco, alcohol, or recreational drugs; resides at [facility]; full code status FamHx: Mother passed at 80 2nd cancer. Father passed at 84 2nd renal problems. Sister is healthy. Brother is healthy. ROS: as above, otherwise reviewed and all were negative vitals: Vital Signs Temp 36.8 C 05/22/18 04:24 Pulse 79 05/22/18 04:24 Resp 18 05/22/18 04:24 BP 129/73 05/22/18 04:24 Pulse Ox 98 05/22/18 04:24 Intake & Output 05/21/18 05/21/18 05/22/18 11:59 23:59 11:59 Intake Total 2360 Balance 2360 Weight 77.111 kg Intake: IV Fluids 50 IVPB 2310 Constitutional: NAD, normally developed, overweight white male HEENM: atraumatic; sclera/conjunctiva: anicteric/clear; hearing: clinically intact; oropharynx: clear, mucosa moist Neck: soft tissue: no nuchal rigidity, supple; thyroid: normal Pulmonary: clear to auscultation bilaterally, good aeration, no accessory muscle use CV: RR/RR, normal S1S2, no carotid bruit, no jugular venous distention, 2+ B DP/ PT, no edema Abdominal: soft, non-distended, non-tender, no rebound/guarding/rigidity, normoactive bowel sounds, no hepatosplenomegaly or masses, no costovertebral angle tenderness Musculoskeletal: general: grossly intact Integumental: normal appearance and texture of exposed skin Psychiatric orientation: AA&O to PPS affect: calm mood: cooperative eye contact: good content: seemingly reliable responses: timely insight: fair Testing: Lab Results 05/21/18 05/21/18 05/21/18 Range/Units 23:10 23:10 23:10 WBC 20.5 H (3.5-10.8) 10^3/ul RBC 5.02 (4.00-5.40) 10^6/ul Hgb 14.0 (14.0-18.0) g/dl Hct 42 (42-52) % MCV 83 (80-94) fL MCH 28 (27-31) pg MCHC 33 (31-36) g/dl RDW 17 H (10.5-15) % Plt Count 195 (150-450) 10^3/ul MPV 7.0 L (7.4-10.4) um3 Neut % (Auto) 86.7 H (38-83) % Lymph % (Auto) 4.8 L (25-47) % Rose[place] % (Auto) 8.1 H (0-7) % Eos % (Auto) 0 (0-6) % Baso % (Auto) 0.4 (0-2) % Absolute Neuts (auto) 17.7 H (1.5-7.7) 10^3/ul Absolute Lymphs (auto) 1.0 (1.0-4.8) 10^3/ul Absolute Monos (auto) 1.7 H (0-0.8) 10^3/ul Absolute Eos (auto) 0 (0-0.6) 10^3/ul Absolute Basos (auto) 0.1 (0-0.2) 10^3/ul Absolute Nucleated RBC 0 10^3/ul Nucleated RBC % 0 INR (Anticoag Therapy) 1.33 H (0.77-1.02) Sodium (135-145) mmol/L Potassium (3.5-5.0) mmol/L Chloride (101-111) mmol/L Carbon Dioxide (22-32) mmol/L Anion Gap (2-11) mmol/L BUN (6-24) mg/dL Creatinine (0.67-1.17) mg/dL Est GFR ( Amer) (>60) Est GFR (Non-Af Amer) (>60) BUN/Creatinine Ratio (8-20) Glucose (70-100) mg/dL Lactic Acid (0.5-2.0) mmol/L Calcium (8.6-10.3) mg/dL Total Bilirubin (0.2-1.0) mg/dL AST (13-39) U/L ALT (7-52) U/L Alkaline Phosphatase (34-104) U/L Total Protein (6.4-8.9) g/dL Albumin (3.2-5.2) g/dL Globulin (2-4) g/dL Albumin/Globulin Ratio (1-3) Urine Color Yellow Urine Appearance Cloudy Urine pH 7.0 (5-9) Ur Specific Empire 1.012 (1.010-1.030) Urine Protein Negative (Negative) Urine Ketones Negative (Negative) Urine Blood 2+ A (Negative) Urine Nitrate Negative (Negative) Urine Bilirubin Negative (Negative) Urine Urobilinogen Negative (Negative) Ur Leukocyte Esterase 3+ A (Negative) Urine WBC (Auto) 3+(>20/hpf) A (Absent) Urine RBC (Auto) 1+(3-5/hpf) A (Absent) Urine Bacteria 1+ A (Absent) Urine Glucose Negative (Negative) 05/21/18 05/21/18 05/22/18 Range/Units 23:10 23:10 02:40 WBC (3.5-10.8) 10^3/ul RBC (4.00-5.40) 10^6/ul Hgb (14.0-18.0) g/dl Hct (42-52) % MCV (80-94) fL MCH (27-31) pg MCHC (31-36) g/dl RDW (10.5-15) % Plt Count (150-450) 10^3/ul MPV (7.4-10.4) um3 Neut % (Auto) (38-83) % Lymph % (Auto) (25-47) % Roseau % (Auto) (0-7) % Eos % (Auto) (0-6) % Baso % (Auto) (0-2) % Absolute Neuts (auto) (1.5-7.7) 10^3/ul Absolute Lymphs (auto) (1.0-4.8) 10^3/ul Absolute Monos (auto) (0-0.8) 10^3/ul Absolute Eos (auto) (0-0.6) 10^3/ul Absolute Basos (auto) (0-0.2) 10^3/ul Absolute Nucleated RBC 10^3/ul Nucleated RBC % INR (Anticoag Therapy) (0.77-1.02) Sodium 128 L (135-145) mmol/L Potassium 4.1 (3.5-5.0) mmol/L Chloride 95 L (101-111) mmol/L Carbon Dioxide 27 (22-32) mmol/L Anion Gap 6 (2-11) mmol/L BUN 10 (6-24) mg/dL Creatinine 0.81 (0.67-1.17) mg/dL Est GFR ( Amer) 116.5 (>60) Est GFR (Non-Af Amer) 96.2 (>60) BUN/Creatinine Ratio 12.3 (8-20) Glucose 138 H (70-100) mg/dL Lactic Acid 1.1 0.9 (0.5-2.0) mmol/L Calcium 9.0 (8.6-10.3) mg/dL Total Bilirubin 0.70 (0.2-1.0) mg/dL AST 9 L (13-39) U/L ALT 8 (7-52) U/L Alkaline Phosphatase 104 (34-104) U/L Total Protein 6.7 (6.4-8.9) g/dL Albumin 3.8 (3.2-5.2) g/dL Globulin 2.9 (2-4) g/dL Albumin/Globulin Ratio 1.3 (1-3) Urine Color Urine Appearance Urine pH (5-9) Ur Specific Empire (1.010-1.030) Urine Protein (Negative) Urine Ketones (Negative) Urine Blood (Negative) Urine Nitrate (Negative) Urine Bilirubin (Negative) Urine Urobilinogen (Negative) Ur Leukocyte Esterase (Negative) Urine WBC (Auto) (Absent) Urine RBC (Auto) (Absent) Urine Bacteria (Absent) Urine Glucose (Negative) CXR, personally reviewed: no acute process Impression: 62M HX HTN, congenital cognitive disorder with impulse control presents with fever & leukocytosis 2nd UTI DIAGNOSIS & PLAN Primary sepsis (fever, leukocytosis) 2nd UTI : IV ceftriaxone : IVFs : blood & urine CXs : supportive care Secondary HTN : continue metoprolol congenital cognitive disorder with impulse control : continue olanzapine, carbamazepine anxiety : continue fluoxetine Admission Rational: observation for initiation of IV ABX and IVFs for sepsis 2nd UTI DVTp: heparin SQ Code Status: full HCP: sisterMeghna
[2018-05-22] MEDS ORDERED: Melatonin 3 MG TAB PO PRN (03:29)
[2018-05-22] MEDS ORDERED: Senna TAB PO PRN (03:36)
[2018-05-22] MEDS ORDERED: oxyCODONE/Acetamin 5/325 MG* TAB PO PRN (03:36)
[2018-05-22] MEDS ORDERED: Cyclobenzaprine TAB* 10 MG PO PRN (03:36)
[2018-05-22] MEDS: Omeprazole CAP* 20 MG PO SCH (05:40)
[2018-05-22] MEDS: Acetaminophen TAB* 325 MG PO PRN ×2 (05:41→12:18)
[2018-05-22] MEDS: Heparin VIAL(*) 5000 UNITS/ML VIAL (FIVE THOUSAND) SUBCUT SCH ×3 (05:53→22:00)
[2018-05-22 06:32] LABS: Hematocrit 40 % (42-52); Hemoglobin 13.4 g/dl (14.0-18.0); Mean Corpuscular HGB Conc 34 g/dl (31-36); Mean Corpuscular Hemoglobin 28 pg (27-31); Mean Corpuscular Volume 83 fL (80-94); Mean Platelet Volume 7.3 um3 (7.4-10.4); Platelet Count 182 10^3/ul (150-450); Red Blood Count 4.75 10^6/ul (4.00-5.40); Red Cell Distribution Width 18 % (10.5-15); White Blood Count 21.2 10^3/ul (3.5-10.8)
[2018-05-22 06:50] LABS: EGFR Non-African American 112.1 (>60)
[2018-05-22 06:53] LABS: ABS Basophils 0 10^3/ul (0-0.2); ABS Eosinophils 0 10^3/ul (0-0.6); ABS Lymphocytes 0.8 10^3/ul (1.0-4.8); ABS Monocytes 1.7 10^3/ul (0-0.8); ABS Neutrophils 18.6 10^3/ul (1.5-7.7); ABS Nucleated RBC 0 10^3/ul; Eosinophil % 0.1 % (0-6); Lymphocyte % 3.7 % (25-47); Nucleated Red Blood Cells % 0
--- NOTE | 2018-05-22 09:04 | PN ---
Subjective Date of Service: 05/22/18 Interval History: Patient admitted overnight w/ sepsis due to UTI. Denies dysuria, no fevers this morning. Has some appetite for breakfast. Spoke with sister Mary. She states at baseline can transfer self from bed to chair, use wheelchair. Family History: Unchanged from Admission Social History: Unchanged from Admission Past Medical History: Unchanged from Admission Objective Active Medications: Acetaminophen (Tylenol Tab*) 650 mg PO Q6H PRN PRN Reason: FEVER/PAIN Last Admin: 05/22/18 05:41 Dose: 650 mg Carbamazepine (Tegretol Tab(*)) 200 mg PO BID [facility] Carbamazepine (Tegretol Tab(*)) 400 mg PO BEDTIME [facility] Cyclobenzaprine HCl (Flexeril Tab*) 5 mg PO BEDTIME LIDYA Cyclobenzaprine HCl (Flexeril Tab*) 5 mg PO TID PRN PRN Reason: SPASMS Docusate Sodium (Colace Cap*) 200 mg PO BID [facility] Ferrous Sulfate (Ferrous Sulfate Tab*) 325 mg PO QAM [facility] Fluoxetine HCl (Prozac Cap*) 40 mg PO QAM [facility] Heparin Sodium (Porcine) (Heparin Vial(*)) 5,000 units SUBCUT Q8HR [facility] Last Admin: 05/22/18 05:53 Dose: 5,000 units Lactated Ringer's (Lactated Ringers 1000 Ml Bag*) 1,000 mls @ 75 mls/hr IV PER RATE [facility] Last Admin: 05/22/18 05:42 Dose: 75 mls/hr Ceftriaxone Sodium 1,000 mg/ (Sodium Chloride) 50 mls @ 200 mls/hr IVPB Q24H [facility] Lactase (Lactaid Fast Act (Nf)) 3,000 unit PO TID WITH MEALS [facility]; Protocol Melatonin (Melatonin) 3 mg PO BEDTIME PRN; Protocol PRN Reason: Sleep Metoprolol Succinate (Toprol Xl Tab*) 50 mg PO QAM [facility] Metoprolol Succinate (Toprol Xl Tab*) 100 mg PO QPM [facility] Olanzapine (Zyprexa Tab*) 5 mg PO BID [facility] Omeprazole (Prilosec Cap*) 20 mg PO DAILY@0600 [facility] Last Admin: 05/22/18 05:40 Dose: 20 mg Oxycodone/Acetaminophen (Percocet 5/325 Tab*) 1 tab PO Q4H PRN PRN Reason: PAIN Senna (Senokot Tab*) 2 tab PO BEDTIME PRN PRN Reason: CONSTIPATION Vital Signs - 8 hr 05/22/18 05/22/18 05/22/18 04:24 05:09 07:25 Temperature 36.8 C 38.5 C 36.9 C Pulse Rate 79 87 79 Respiratory 18 20 18 Rate Blood Pressure 129/73 113/54 111/54 (mmHg) O2 Sat by Pulse 98 97 96 Oximetry Oxygen Devices in Use Now: None Appearance: alert, no distress Eyes: No Scleral Icterus Ears/Nose/Mouth/Throat: Clear Oropharnyx Respiratory: Clear to Auscultation, Clear to Percussion Cardiovascular: NL Sounds; No Murmurs; No JVD, RRR Abdominal: NL Sounds; No Tenderness; No Distention, No Hepatosplenomegaly, - - no CVAT Extremities: No Edema Neurological: Alert and Oriented x 3 Lines/Tubes/Other Access: Clean, Dry and Intact Peripheral IV Nutrition: Taking PO's Result Diagrams: 05/22/18 05:59 05/22/18 05:59 Microbiology and Other Data: Urine culture pending Assess/Plan/Problems-Billing Assessment: 62 year old man admitted w/ sepsis due to UTI, has baseline developmental delay. - Patient Problems (1) Sepsis due to urinary tract infection Current Visit: Yes Status: Acute Priority: High Code(s): A41.9 - SEPSIS, UNSPECIFIED ORGANISM; N39.0 - URINARY TRACT INFECTION, SITE NOT SPECIFIED SNOMED Code(s): 389749905 Comment: -responding well to ceftriaxone, fluid infusion -will follow cultures, narrow coverage (2) Mental retardation Current Visit: No Status: Acute Priority: Low Code(s): F79 - UNSPECIFIED INTELLECTUAL DISABILITIES SNOMED Code(s): 523712757 Comment: - With impulse control disorder and axiety - Continue tegretol, zyprexa. (3) DVT prophylaxis Current Visit: No Status: Acute Code(s): [id number] - SNOMED Code(s): 149407062 Comment: - SC heparin Status and Disposition: Will need 2-3 days inpatient to stabilize, assure full treatment of sepsis. Can return to SNF subsequently.
[2018-05-22] MEDS: Lactase Enzyme (NF) 3,000 UNIT TAB PO SCH ×2 (09:39→12:18)
[2018-05-22] MEDS: carBAMazepine TAB(*) 200 MG PO SCH ×3 (09:41→22:10)
[2018-05-22] MEDS: FLUoxetine CAP* 20 MG PO SCH (09:41)
[2018-05-22] MEDS: Ferrous Sulfate TAB* 325 MG PO SCH (09:42)
[2018-05-22] MEDS: Metoprolol Succinate XL TAB* 50 MG PO SCH (09:42)
[2018-05-22] MEDS: OLANzapine TAB* 5 MG PO SCH ×2 (09:42→22:01)
[2018-05-22] MEDS: Docusate CAP* 100 MG PO SCH ×2 (09:43→22:01)
--- NOTE | 2018-05-22 12:16 | RAD ---
INDICATION: Fever COMPARISON: Most recent comparison chest x-rays dated October 01, 2017 TECHNIQUE: PA and lateral views of the chest were obtained. FINDINGS: The heart and mediastinum are normal in size and contour. The lungs are grossly clear. There is no evidence of large pleural effusion. Visualized bones are normal for the patient's age. There is no radiographic evidence of free air beneath the diaphragm IMPRESSION: No radiographic evidence of acute cardiopulmonary disease. R1
[2018-05-22] MEDS ORDERED: Warfarin TAB(*) 2 MG PO SCH (17:00)
[2018-05-22] MEDS: CMC:Lactase Enzyme (NF) 3,000 UNIT TAB PO SCH (17:04)
[2018-05-22] MEDS: Metoprolol Succinate XL TAB* 100 MG PO SCH (22:01)
[2018-05-22] MEDS: Cyclobenzaprine TAB* 10 MG PO SCH (22:02)
[2018-05-22] MEDS: cefTRIAXone VIAL(*) 1,000 MG in NS 0.9% 50 ML* 50 ML IVPB SCH (23:24)
[2018-05-23] MEDS ORDERED: Heparin VIAL(*) 5000 UNITS/ML VIAL (FIVE THOUSAND) SUBCUT SCH (06:00)
[2018-05-23] MEDS: Omeprazole CAP* 20 MG PO SCH (06:10)
[2018-05-23] MEDS: Heparin VIAL(*) 5000 UNITS/ML VIAL (FIVE THOUSAND) SUBCUT SCH ×3 (06:10→21:58)
[2018-05-23] MEDS: carBAMazepine TAB(*) 200 MG PO SCH ×3 (09:03→20:28)
[2018-05-23] MEDS: CMC:Lactase Enzyme (NF) 3,000 UNIT TAB PO SCH ×3 (09:04→16:14)
[2018-05-23] MEDS: OLANzapine TAB* 5 MG PO SCH ×2 (09:04→20:28)
[2018-05-23] MEDS: Docusate CAP* 100 MG PO SCH ×2 (09:04→20:28)
[2018-05-23] MEDS: FLUoxetine CAP* 20 MG PO SCH (09:04)
[2018-05-23] MEDS: Ferrous Sulfate TAB* 325 MG PO SCH (09:04)
[2018-05-23] MEDS: Metoprolol Succinate XL TAB* 50 MG PO SCH (09:04)
--- NOTE | 2018-05-23 14:50 | PN ---
Subjective Date of Service: 05/23/18 Interval History: Tmax was 100.3. He denies dysuria, dribbling, hesitancy, flank pain. He does recall having fevers prior to admission, and he thinks they started on Wednesday. No headache, no cough, no diarrhea, no nausea. Family History: Unchanged from Admission Social History: Unchanged from Admission Past Medical History: Unchanged from Admission Objective Active Medications: Acetaminophen (Tylenol Tab*) 650 mg PO Q6H PRN PRN Reason: FEVER/PAIN Last Admin: 05/22/18 12:18 Dose: 650 mg Carbamazepine (Tegretol Tab(*)) 200 mg PO BID [facility] Last Admin: 05/23/18 09:03 Dose: 200 mg Carbamazepine (Tegretol Tab(*)) 400 mg PO BEDTIME [facility] Last Admin: 05/22/18 22:02 Dose: 400 mg Cyclobenzaprine HCl (Flexeril Tab*) 5 mg PO BEDTIME [facility] Last Admin: 05/22/18 22:02 Dose: 5 mg Cyclobenzaprine HCl (Flexeril Tab*) 5 mg PO TID PRN PRN Reason: SPASMS Docusate Sodium (Colace Cap*) 200 mg PO BID [facility] Last Admin: 05/23/18 09:04 Dose: Not Given Ferrous Sulfate (Ferrous Sulfate Tab*) 325 mg PO QAM [facility] Last Admin: 05/23/18 09:04 Dose: 325 mg Fluoxetine HCl (Prozac Cap*) 40 mg PO QAM [facility] Last Admin: 05/23/18 09:04 Dose: 40 mg Heparin Sodium (Porcine) (Heparin Vial(*)) 5,000 units SUBCUT Q8HR [facility] Last Admin: 05/23/18 06:10 Dose: 5,000 units Lactated Ringer's (Lactated Ringers 1000 Ml Bag*) 1,000 mls @ 75 mls/hr IV PER RATE [facility] Last Admin: 05/22/18 21:59 Dose: 75 mls/hr Ceftriaxone Sodium 1,000 mg/ (Sodium Chloride) 50 mls @ 200 mls/hr IVPB Q24H [facility] Last Admin: 05/22/18 23:24 Dose: 200 mls/hr Lactase (Lactaid Fast Act (Nf)) 3,000 unit PO TID WITH MEALS [facility]; Protocol Last Admin: 05/23/18 13:22 Dose: Not Given Melatonin (Melatonin) 3 mg PO BEDTIME PRN; Protocol PRN Reason: Sleep Metoprolol Succinate (Toprol Xl Tab*) 50 mg PO QAM [facility] Last Admin: 05/23/18 09:04 Dose: 50 mg Metoprolol Succinate (Toprol Xl Tab*) 100 mg PO BEDTIME [facility] Last Admin: 05/22/18 22:01 Dose: 100 mg Olanzapine (Zyprexa Tab*) 5 mg PO BID [facility] Last Admin: 05/23/18 09:04 Dose: 5 mg Omeprazole (Prilosec Cap*) 20 mg PO DAILY@0600 [facility] Last Admin: 05/23/18 06:10 Dose: 20 mg Oxycodone/Acetaminophen (Percocet 5/325 Tab*) 1 tab PO Q4H PRN PRN Reason: PAIN Senna (Senokot Tab*) 2 tab PO BEDTIME PRN PRN Reason: CONSTIPATION Vital Signs - 8 hr 05/23/18 05/23/18 05/23/18 07:34 10:34 11:17 Temperature 98.0 F 98.6 F Pulse Rate 84 78 Respiratory 16 18 16 Rate Blood Pressure 111/55 123/65 (mmHg) O2 Sat by Pulse 96 99 Oximetry Oxygen Devices in Use Now: None Appearance: alert, comfortable, pleasant Eyes: No Scleral Icterus Ears/Nose/Mouth/Throat: NL Teeth, Lips, Gums Neck: NL Appearance and Movements; NL JVP Respiratory: Symmetrical Chest Expansion and Respiratory Effort, Clear to Auscultation Cardiovascular: NL Sounds; No Murmurs; No JVD, RRR Abdominal: NL Sounds; No Tenderness; No Distention Lymphatic: No Cervical Adenopathy Extremities: No Edema Skin: No Rash or Ulcers Neurological: Alert and Oriented x 3 Result Diagrams: 05/22/18 05:59 05/22/18 05:59 Microbiology and Other Data: Urine culture pending Assess/Plan/Problems-Billing Assessment: 62 year old man admitted w/ sepsis due to UTI, has baseline developmental delay. - Patient Problems (1) Sepsis due to urinary tract infection Current Visit: Yes Status: Acute Priority: High Code(s): A41.9 - SEPSIS, UNSPECIFIED ORGANISM; N39.0 - URINARY TRACT INFECTION, SITE NOT SPECIFIED SNOMED Code(s): 370055944 Comment: sepsis now resolved improving on ceftriaxone culture growing klebsiella; sensitivities pending sufficiently volume resuscitated; dc ivf (2) HTN (hypertension) Current Visit: No Status: Acute Code(s): I10 - ESSENTIAL (PRIMARY) HYPERTENSION SNOMED Code(s): 08112693 Comment: Continue metoprolol 50 qam, 100mg qpm (3) Iron deficiency anemia Current Visit: No Status: Acute Code(s): D50.9 - IRON DEFICIENCY ANEMIA, UNSPECIFIED SNOMED Code(s): 20001691 Comment: continue FeSO4 drop today likely due to volume resuscitation (4) Mental retardation Current Visit: No Status: Acute Priority: Low Code(s): F79 - UNSPECIFIED INTELLECTUAL DISABILITIES SNOMED Code(s): 433226650 Comment: Noted, with impulse control disorder and anxiety Continue tegretol, zyprexa. Status and Disposition: inpatient; likely back to snf tomorrow
[2018-05-23] MEDS: Cyclobenzaprine TAB* 10 MG PO SCH (20:28)
[2018-05-23] MEDS: Metoprolol Succinate XL TAB* 100 MG PO SCH (20:28)
[2018-05-23] MEDS: cefTRIAXone VIAL(*) 1,000 MG in NS 0.9% 50 ML* 50 ML IVPB SCH (22:21)
[2018-05-24] MEDS: Omeprazole CAP* 20 MG PO SCH (05:47)
[2018-05-24] MEDS: Heparin VIAL(*) 5000 UNITS/ML VIAL (FIVE THOUSAND) SUBCUT SCH (05:47)
[2018-05-24 06:56] LABS: ABS Basophils 0 10^3/ul (0-0.2); ABS Eosinophils 0.2 10^3/ul (0-0.6); ABS Lymphocytes 0.8 10^3/ul (1.0-4.8); ABS Monocytes 0.9 10^3/ul (0-0.8); ABS Neutrophils 5.5 10^3/ul (1.5-7.7); ABS Nucleated RBC 0 10^3/ul; Eosinophil % 2.2 % (0-6); Hematocrit 37 % (42-52); Hemoglobin 12.9 g/dl (14.0-18.0); Lymphocyte % 10.9 % (25-47); Mean Corpuscular HGB Conc 35 g/dl (31-36); Mean Corpuscular Hemoglobin 29 pg (27-31); Mean Corpuscular Volume 83 fL (80-94); Mean Platelet Volume 6.8 um3 (7.4-10.4); Nucleated Red Blood Cells % 0.1; Platelet Count 203 10^3/ul (150-450); Red Cell Distribution Width 17 % (10.5-15); White Blood Count 7.4 10^3/ul (3.5-10.8)
[2018-05-24 07:15] LABS: EGFR Non-African American 117.8 (>60)
[2018-05-24 08:19] VITALS: BP 117/64
[2018-05-24] MEDS: CMC:Lactase Enzyme (NF) 3,000 UNIT TAB PO SCH (08:25)
[2018-05-24] MEDS: Metoprolol Succinate XL TAB* 50 MG PO SCH (08:25)
[2018-05-24] MEDS: FLUoxetine CAP* 20 MG PO SCH (08:25)
[2018-05-24] MEDS: Docusate CAP* 100 MG PO SCH (08:25)
[2018-05-24] MEDS: OLANzapine TAB* 5 MG PO SCH (08:25)
[2018-05-24] MEDS: Ferrous Sulfate TAB* 325 MG PO SCH (08:26)
[2018-05-24] MEDS: carBAMazepine TAB(*) 200 MG PO SCH (08:26)
--- NOTE | 2018-05-24 11:20 | DS ---
CC: Dr. Eve Modoy * DISCHARGE SUMMARY: DATE OF ADMISSION: 05/22/18 DATE OF DISCHARGE: 05/24/18 PRINCIPAL DISCHARGE DIAGNOSES: 1. Sepsis. 2. Complicated urinary tract infection. SECONDARY DISCHARGE DIAGNOSES: 1. Congenital cognitive disorder with impulse control. 2. Hypertension. 3. Anxiety. 4. Iron deficiency anemia. 5. Benign prostatic hypertrophy. HOSPITAL COURSE BY PROBLEMS: 1. Sepsis. Mr. Bush was transferred to the emergency department from [facility] for fevers and malaise. In the emergency department, he was found to have leukocytosis, fever of 101, tachycardia, and tachypnea confirming a diagnosis of sepsis. A urinary source was quickly found with a positive urinalysis and he was initiated on ceftriaxone. He received fluid resuscitation and remained hemodynamically stable and was admitted to the hospitalist service. He was found doing well with IV ceftriaxone and his urine culture returned as Klebsiella which was sensitive to Bactrim. I am transitioning him from ceftriaxone to Bactrim on 05/24 and he will complete 7 more days. 2. Congenital cognitive disorder with impulse control. He will continue on olanzapine and carbamazepine and had no behavioral disturbances during this admission. 3. Anxiety. He was continued on fluoxetine. 4. Hypertension. He will continue on metoprolol. PHYSICAL EXAMINATION AT THE TIME OF DISCHARGE: Temperature 98.5, his T-max in the last 24 hours was 99.0, heart rate 67, respiratory rate 16, pulse ox 97% on room air, blood pressure 117/64. General: Alert, pleasant, energetic man in no distress. HEENT: Pupils are equal, round, and reactive to light. No nystagmus. Oral mucosa is moist. Neck: No JVP. No cervical adenopathy. Chest : Regular rate and rhythm. PMI nondisplaced. Lungs: Clear bilaterally. Abdomen: Soft and nontender. No CVA tenderness is present. Extremities: No edema, no rash, and no ulcers. TIME SPENT: Thirty minutes was spent on this discharge. [id number]/[facility] #: [id number] MTDD
== END 2018-05-24 13:05 | DRG 872 ==
LOC: ED 21:35 → MED 05-22 03:27 → OBSVTOIN 05-22 12:59
PROVIDERS: ADMIT Hospitalist; ATTEND Internal Medicine
DX: A41.9 Sepsis, unspecified organism (principal); N39.0 Urinary tract infection, site not specified; I10 Essential (primary) hypertension; K21.9 Gastro-esophageal reflux disease without esophagitis; K58.9 Irritable bowel syndrome, unspecified; E73.9 Lactose intolerance, unspecified; N40.0 Benign prostatic hyperplasia without lower urinary tract symptoms; M19.90 Unspecified osteoarthritis, unspecified site; F41.9 Anxiety disorder, unspecified; F32.9 Major depressive disorder, single episode, unspecified; F63.9 Impulse disorder, unspecified; Z96.641 Presence of right artificial hip joint; E66.3 Overweight; G31.84 Mild cognitive impairment of uncertain or unknown etiology; D50.9 Iron deficiency anemia, unspecified; F79 Unspecified intellectual disabilities; B96.1 Klebsiella pneumoniae [K. pneumoniae] as the cause of diseases classified elsewhere; Z82.49 Family history of ischemic heart disease and other diseases of the circulatory system; Z88.8 Allergy status to other drugs, medicaments and biological substances; Z68.38 Body mass index [BMI] 38.0-38.9, adult; R50.9 Fever, unspecified; R35.0 Frequency of micturition
CPT/HCPCS: 36415; 71046; 80048; 80053; 81003; 81015; 82272; 83605; 83630; 85025; 85610; 85730; 87040; 87045; 87046; 87077; 87086; 87186; 87329; 87493; 87899; 99284; A9270-GY; G0378; J0696; J1644

== ENCOUNTER 2018-08-31 17:59 | Observation (INO) | payer MEDICARE, MEDICAID ==
[2018-08-31] MEDS ORDERED: NS 0.9% 1000 ML* 1,000 ML IV ONE ×2 (18:24→21:19)
[2018-08-31] MEDS ORDERED: Acetaminophen TAB* 325 MG PO ONE (18:24)
[2018-08-31 19:25] LABS: Albumin 4.2 g/dL (3.2-5.2); Albumin/Globulin Ratio 1.4 (1-3); BUN/Creatinine Ratio 14.8 (8-20); C Reactive Protein 87.46 mg/L (<8.01); Calcium 9.5 mg/dL (8.6-10.3); EGFR Non-African American 95.9 (>60); Globulin 2.9 g/dL (2-4); Total Bilirubin 0.7 mg/dL (0.2-1.0); Total Protein 7.1 g/dL (6.4-8.9)
[2018-08-31 19:59] LABS: Urine Appearance Cloudy; Urine Bacteria 1+ (Absent); Urine Bilirubin Negative (Negative); Urine Blood 3+ (Negative); Urine Color Yellow; Urine Glucose Negative (Negative); Urine Ketones Negative (Negative); Urine Nitrite Negative (Negative); Urine Protein 2+(100 mg/dL) (Negative); Urine Red Blood Cell 3+(>10/hpf) (Absent); Urine Renal Epithelial Cells Present (Absent); Urine Specific Gravity 1.014 (1.010-1.030); Urine Urobilinogen Negative (Negative); Urine White Blood Cell 3+(>20/hpf) (Absent)
[2018-08-31 21:03] LABS: ABS Basophils 0 10^3/ul (0-0.2); ABS Eosinophils 0 10^3/ul (0-0.6); ABS Lymphocytes 0.5 10^3/ul (1.0-4.8); ABS Monocytes 0.8 10^3/ul (0-0.8); ABS Nucleated RBC 0 10^3/ul; Eosinophil % 0 %; Hematocrit 46 % (42-52); Hemoglobin 15.6 g/dl (14.0-18.0); Lymphocyte % 2.9 %; Mean Corpuscular HGB Conc 34 g/dl (31-36); Mean Corpuscular Hemoglobin 31 pg (27-31); Mean Corpuscular Volume 91 fL (80-94); Mean Platelet Volume 7.2 fL (7.4-10.4); Nucleated Red Blood Cells % 0.1; Platelet Count 211 10^3/ul (150-450); Red Blood Count 5.04 10^6/ul (4.00-5.40); Red Cell Distribution Width 14 % (10.5-15); White Blood Count 16.4 10^3/ul (3.5-10.8)
[2018-08-31] MEDS ORDERED: cefTRIAXone(*) 1 GM in NS 0.9% 50 ML* 50 ML IVPB ONE (21:19)
--- NOTE | 2018-08-31 21:21 | ED ---
GI/ HPI - HPI Summary HPI Summary: Patient complains of burning with urination and hematuria starting this morning. Denies fever, cough, sore throat, CP, SOB, N/V/V abdominal pain, change in BM. Medical history is anemia. History of urosepsis. - History of Current Complaint Chief Complaint: EDUrogenitalProblems Time Seen by Provider: 08/31/18 18:22 Stated Complaint: BLOOD IN URINE Hx Obtained From: Patient Onset/Duration: Started Hours Ago Timing: Intermittent Current Severity: None Pain Intensity: 0 Associated Signs and Symptoms: Positive: Hematuria, Dysuria Aggravating Factor(s): Urination - Additional Pertinent History Primary Care Physician: [id number] - Allergy/Home Medications Allergies/Adverse Reactions: Allergies Allergy/AdvReac Type Severity Reaction Status Date / Time ondansetron Allergy Mild Unknown Verified 02/10/18 16:00 Reaction Details lactose Allergy GI Upset Verified 02/10/18 08:20 Home Medications: Home Medications Neomycin/Bacitracin/Polymyxinb [Triple Antibiotic Ointment] 1 each TOPICAL TID 08/31/18 [History Confirmed 08/31/18] Tamsulosin CAP* [Flomax CAP*] 0.4 mg PO BEDTIME 08/31/18 [History Confirmed 02/11] PMH/Surg Hx/FS Hx/Imm Hx Endocrine/Hematology History: Reports: Hx Anemia - 2014 [place] AND IRON GOOD NOW Cardiovascular History: Reports: Hx Hypertension Denies: Hx Pacemaker/ICD GI History: Reports: Hx Gastroesophageal Reflux Disease, Hx Irritable Bowel, Hx Ulcer, Other GI Disorders - ANIETY AND LACTOSE INTOLERANCE History: Reports: Hx Benign Prostatic Hyperplasia Musculoskeletal History: Reports: Hx Arthritis, Hx Bursitis - LEFT ARM, Other Musculoskeletal History - SURGERY RECENT QUAD TENDON RIGHT KNEE YASSEEN Sensory History: Denies: Hx Contacts or Glasses, Hx Legally Blind, Hx Deafness, Hx Hearing Aid Opthamlomology History: Denies: Hx Contacts or Glasses, Hx Legally Blind Neurological History: Reports: Other Neuro Impairments/Disorders - ddd/ aniexty disorder Psychiatric History: Reports: Hx Anxiety, Hx Depression, Hx Community Mental Health Tx - lives in [facility], Other Psychiatric Issues/Disorders - impulse control disorder Denies: Hx Panic Disorder - Surgical History Surgery Procedure, Year, and Place: Right hip replacement 1999 Hx Anesthesia Reactions: No - Immunization History Date of Influenza Vaccine: jul 2018 Infectious Disease History: No Infectious Disease History: Denies: Traveled Outside the [place] in Last 30 Days - Family History Known Family History: Positive: Cardiac Disease, Hypertension Negative: Diabetes - Social History Alcohol Use: None Hx Substance Use: No Substance Use Type: Reports: None Hx Tobacco Use: No Smoking Status (MU): Never Smoked Tobacco Review of Systems Constitutional: Negative Eyes: Negative ENT: Negative Cardiovascular: Negative Respiratory: Negative Gastrointestinal: Negative Positive: burning Musculoskeletal: Negative Skin: Negative Neurological: Negative Psychological: Normal All Other Systems Reviewed And Are Negative: Yes Physical Exam Triage Information Reviewed: Yes Vital Signs On Initial Exam: Initial Vitals Temp Pulse Resp BP Pulse Ox 102 F 108 20 135/76 93 08/31/18 18:13 08/31/18 18:13 08/31/18 18:13 08/31/18 18:13 08/31/18 18:13 Vital Signs Reviewed: Yes Appearance: Positive: Well-Appearing Skin: Positive: Warm Head/Face: Positive: Normal Head/Face Inspection Eyes: Positive: Normal Neck: Positive: Supple Respiratory/Lung Sounds: Positive: Clear to Auscultation Cardiovascular: Positive: Normal Abdomen Description: Positive: Nontender Musculoskeletal: Positive: Normal Neurological: Positive: Normal Psychiatric: Positive: Normal AVPU Assessment: Alert - Ne Coma Scale Best Eye Response: 4 - Spontaneous Best Motor Response: 6 - Obeys Commands Best Verbal Response: 5 - Oriented Coma Scale Total: 15 Diagnostics - Vital Signs Vital Signs Temp Pulse Resp BP Pulse Ox 08/31/18 21:13 99 23 113/61 93 08/31/18 21:00 99 23 93 08/31/18 20:50 101 26 103/67 92 08/31/18 20:43 16 115/78 08/31/18 20:14 110 24 103/74 92 08/31/18 20:00 110 23 94 08/31/18 19:43 109 24 116/71 94 08/31/18 19:00 109 25 96 08/31/18 18:56 112 21 127/73 95 08/31/18 18:13 102 F 111 15 135/76 95 - Laboratory Lab Results: Lab Results 08/31/18 08/31/18 08/31/18 Range/Units 18:45 18:45 18:45 WBC 16.4 H (3.5-10.8) 10^3/ul RBC 5.04 (4.00-5.40) 10^6/ul Hgb 15.6 (14.0-18.0) g/dl Hct 46 (42-52) % MCV 91 (80-94) fL MCH 31 (27-31) pg MCHC 34 (31-36) g/dl RDW 14 (10.5-15) % Plt Count 211 (150-450) 10^3/ul MPV 7.2 L (7.4-10.4) fL Neut % (Auto) 91.9 % Lymph % (Auto) 2.9 % [place] % (Auto) 5.0 % Eos % (Auto) 0 % Baso % (Auto) 0.2 % Absolute Neuts (auto) 15.0 H (1.5-7.7) 10^3/ul Absolute Lymphs (auto) 0.5 L (1.0-4.8) 10^3/ul Absolute Monos (auto) 0.8 (0-0.8) 10^3/ul Absolute Eos (auto) 0 (0-0.6) 10^3/ul Absolute Basos (auto) 0 (0-0.2) 10^3/ul Absolute Nucleated RBC 0 10^3/ul Nucleated RBC % 0.1 Sodium 128 L (135-145) mmol/L Potassium 4.0 (3.5-5.0) mmol/L Chloride 94 L (101-111) mmol/L Carbon Dioxide 27 (22-32) mmol/L Anion Gap 7 (2-11) mmol/L BUN 12 (6-24) mg/dL Creatinine 0.81 (0.67-1.17) mg/dL Est GFR ( Amer) 116.1 (>60) Est GFR (Non-Af Amer) 95.9 (>60) BUN/Creatinine Ratio 14.8 (8-20) Glucose 115 H (70-100) mg/dL Lactic Acid 1.5 (0.5-2.0) mmol/L Calcium 9.5 (8.6-10.3) mg/dL Total Bilirubin 0.70 (0.2-1.0) mg/dL AST 12 L (13-39) U/L ALT 9 (7-52) U/L Alkaline Phosphatase 123 H (34-104) U/L C-Reactive Protein 87.46 H (<8.01) mg/L Total Protein 7.1 (6.4-8.9) g/dL Albumin 4.2 (3.2-5.2) g/dL Globulin 2.9 (2-4) g/dL Albumin/Globulin Ratio 1.4 (1-3) Urine Color Urine Appearance Urine pH (5-9) Ur Specific [place] (1.010-1.030) Urine Protein (Negative) Urine Ketones (Negative) Urine Blood (Negative) Urine Nitrate (Negative) Urine Bilirubin (Negative) Urine Urobilinogen (Negative) Ur Leukocyte Esterase (Negative) Urine WBC (Auto) (Absent) Urine RBC (Auto) (Absent) Ur Renal Epithelial Cell (Absent) Urine Bacteria (Absent) Urine Glucose (Negative) 08/31/18 Range/Units 19:31 WBC (3.5-10.8) 10^3/ul RBC (4.00-5.40) 10^6/ul Hgb (14.0-18.0) g/dl Hct (42-52) % MCV (80-94) fL MCH (27-31) pg MCHC (31-36) g/dl RDW (10.5-15) % Plt Count (150-450) 10^3/ul MPV (7.4-10.4) fL Neut % (Auto) % Lymph % (Auto) % [place] % (Auto) % Eos % (Auto) % Baso % (Auto) % Absolute Neuts (auto) (1.5-7.7) 10^3/ul Absolute Lymphs (auto) (1.0-4.8) 10^3/ul Absolute Monos (auto) (0-0.8) 10^3/ul Absolute Eos (auto) (0-0.6) 10^3/ul Absolute Basos (auto) (0-0.2) 10^3/ul Absolute Nucleated RBC 10^3/ul Nucleated RBC % Sodium (135-145) mmol/L Potassium (3.5-5.0) mmol/L Chloride (101-111) mmol/L Carbon Dioxide (22-32) mmol/L Anion Gap (2-11) mmol/L BUN (6-24) mg/dL Creatinine (0.67-1.17) mg/dL Est GFR ( Amer) (>60) Est GFR (Non-Af Amer) (>60) BUN/Creatinine Ratio (8-20) Glucose (70-100) mg/dL Lactic Acid (0.5-2.0) mmol/L Calcium (8.6-10.3) mg/dL Total Bilirubin (0.2-1.0) mg/dL AST (13-39) U/L ALT (7-52) U/L Alkaline Phosphatase (34-104) U/L C-Reactive Protein (<8.01) mg/L Total Protein (6.4-8.9) g/dL Albumin (3.2-5.2) g/dL Globulin (2-4) g/dL Albumin/Globulin Ratio (1-3) Urine Color Yellow Urine Appearance Cloudy Urine pH 8.0 (5-9) Ur Specific [place] 1.014 (1.010-1.030) Urine Protein 2+(100 mg/dl) A (Negative) Urine Ketones Negative (Negative) Urine Blood 3+ A (Negative) Urine Nitrate Negative (Negative) Urine Bilirubin Negative (Negative) Urine Urobilinogen Negative (Negative) Ur Leukocyte Esterase 3+ A (Negative) Urine WBC (Auto) 3+(>20/hpf) A (Absent) Urine RBC (Auto) 3+(>10/hpf) A (Absent) Ur Renal Epithelial Cell Present A (Absent) Urine Bacteria 1+ A (Absent) Urine Glucose Negative (Negative) Result Diagrams: 08/31/18 18:45 08/31/18 18:45 Lab Statement: Any lab studies that have been ordered have been reviewed, and results considered in the medical decision making process. GIGU Course/Dx - Course Course Of Treatment: Patient complains of burning with urination and hematuria starting this morning. Denies fever, cough, sore throat, CP, SOB, N/V/V abdominal pain, change in BM. Medical history is anemia. History of urosepsis. Temperature 102. Patient tachycardic 111. WBC 16.4. Lactic normal. Positive UTI. Patient admitted for sepsis - Diagnoses Provider Diagnoses: Sepsis, UTI (urinary tract infection) Discharge - Sign-Out/Discharge Documenting (check all that apply): Patient Departure - Discharge Plan Condition: Stable Disposition: ADMITTED TO [facility] - Billing Disposition and Condition Condition: STABLE Disposition: Admitted to [facility]
[2018-08-31] MEDS ORDERED: Acetaminophen TAB* 325 MG PO PRN (21:39)
[2018-08-31] MEDS ORDERED: NS 0.9% 1000 ML* 1,000 ML IV SCH (21:45)
[2018-08-31] MEDS ORDERED: oxyCODONE/Acetamin 5/325 MG* TAB PO PRN (21:50)
[2018-08-31] MEDS ORDERED: hydrOXYzine HCL TAB* 25 MG PO PRN (21:50)
[2018-08-31] MEDS ORDERED: Cyclobenzaprine TAB* 10 MG PO PRN (21:50)
[2018-08-31] MEDS ORDERED: Senna TAB PO PRN (21:50)
[2018-08-31 22:00] LABS: Activated Partial Thrombo Time 33.6 seconds (26.0-36.3); INR 1.1 (0.77-1.02)
[2018-09-01] MEDS: Heparin VIAL(*) 5000 UNITS/ML VIAL (FIVE THOUSAND) SUBCUT SCH ×2 (00:12→06:59)
[2018-09-01] MEDS: OLANzapine TAB* 5 MG PO SCH ×2 (00:13→08:21)
--- NOTE | 2018-09-01 04:46 | HP ---
CC: Dr. Nesbitt; Dr. Moody, [facility] * HISTORY AND PHYSICAL: DATE OF ADMISSION: 08/31/18 PRIMARY CARE PROVIDER: Dr. Nesbitt, [facility]. ATTENDING PHYSICIAN WHILE IN THE HOSPITAL: Dr. Yessica Prater * (report dictated by Pool Costa NP) CHIEF COMPLAINT: 1. Hematuria. 2. Dysuria. HISTORY OF PRESENT ILLNESS: Mr. Bush is a 63-year-old male patient who carries a history of UTIs in the past and also carries a history of congenital cognitive disorder with impulse control, hypertension, anxiety, iron-deficiency anemia, and a history of BPH. He comes into our ER today stating that he noted at [facility] today that he was feeling weak. He was having getting hard time getting around in bed, hard time moving. He just felt very tired. He was having pressure in the lower part of his abdomen. He felt like he had to pee. When he did go, he had blood in his urine and he was also noted that it did hurt to pee, he said he felt like needles. He was concerned, he alerted the staff. They sent the patient to the ER for further evaluation as he has had issues with UTI's in the past. He denied any fevers with the exception he said he definitely had one when he was here of 102. He denied any chills or fevers at [facility] that he is aware of. He denied any chest pain or any shortness of breath. He did admit to lower abdominal discomfort. He denied having any nausea. He denied having any vomiting. He denied having any shortness of breath. He denied having any cough and he denied having any flank or back pain. There was concern when he came into the ED because it was noted that he appeared to be septic with evidence of high fever and elevated white count and because of this, we were asked to evaluate for admission. PAST MEDICAL HISTORY: Significant for: 1. Hypertension. 2. 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 3. Anxiety. 4. BPH. PAST SURGICAL HISTORY: He has had bilateral hip replacements. HOME MEDICATIONS: Include: 1. Triple Antibiotic 1 application topically t.i.d. 2. Zyprexa 5 mg p.o. b.i.d. 3. Toprol XL 100 mg in the morning. 4. Colace 100 mg p.o. b.i.d. 5. Flexeril 5 mg at bedtime as needed. 6. Atarax 25 mg 4 times a day as needed. 7. Zantac 150 mg p.o. at bedtime. 8. Lactobacillus 1 capsule p.o. daily. 9. Ferrous sulfate 325 mg p.o. q.a.m. 10. Dulcolax suppository 10 mg P.R. daily as needed. 11. Senna 2 tablets p.o. at bedtime. 12. Lactate 3000 units p.o. t.i.d. 13. Prozac 40 mg daily. 14. Oxycodone/acetaminophen 1 tablet p.o. every 4 hours as needed. 15. Tegretol 200 mg p.o. b.i.d. 16. Tylenol 650 mg p.o. every 4 hours as needed. 17. Flomax 0.4 mg at bedtime. ALLERGIES TO MEDICATIONS: Include ZOFRAN and LACTULOSE. FAMILY HISTORY: Mother had a history of cancer. He states his father from sepsis. SOCIAL HISTORY: He does not smoke, does not drink. Resides at [facility]. Surrogate decision maker is his sister, Meghna. REVIEW OF SYSTEMS: There is a documented fever here. He denied having any significant weight change. There was no double vision. There was no ear discharge. He denied having any rhinorrhea. There was no sore throat. No thyroid enlargement. He denied having any chest pain. There was no orthopnea. There was no nocturnal dyspnea. There was lower abdominal pain per my HPI. There was dysuria. There was no frequency. No loss of consciousness. No pruritus and no skin ulcerations. Review of 14 systems completed, all others were negative. PHYSICAL EXAMINATION GENERAL: Mr. Bush is a 63-year-old male patient. He appears to be well nourished, well developed. He does not appear to be in any acute distress. VITAL SIGNS: Blood pressure 113/61, pulse 99, respirations 23, O2 sat 93%, temperature 102. HEENT: Head atraumatic, normocephalic. Eyes: EOMs are intact. Sclerae anicteric and not pale. Throat: Oral mucosa appears to be most. No oropharyngeal erythema. NECK: Supple. LUNGS: Clear to auscultation bilaterally. There were no wheezes, rales or rhonchi. HEART: Sounds S1, S2. He had a regular rate and rhythm. No murmurs, rub, or gallops. ABDOMEN: Soft. It was flat. It was nontender. There was no CVA tenderness. EXTREMITIES: Pulses were 2+ throughout. He is moving all 4 extremities with 5/ 5 strength. NEUROLOGIC: He is awake, alert, oriented x3. His tongue was midline. [employer]er were equal. He had no gross focal deficits. SKIN: Intact. LABORATORY DATA/DIAGNOSTIC STUDIES: WBC of 16.4, RBC of 5.04, hemoglobin of 15.6, hematocrit of 46, platelet count of 211,000. Sodium was 128, potassium 4 , chloride of 94, bicarb 27, BUN 12, creatinine 0.81, glucose 115, lactic 1.5, calcium 9.5. Total bili 0.7, AST 12, ALT 9, alk phos 123, CRP is 87, albumin 4.2. Urine showed 2+ protein, 3+ blood, 3+ leukocyte esterase, 2+ wbc's, 2+ rbc 's, 1+ bacteria. Old medical records were reviewed. ASSESSMENT AND PLAN: Mr. Bush is a 63-year-old male patient presenting to the ED today with complaints of fevers, chills, and dysuria. He will be admitted under inpatient status for: 1. Sepsis secondary to urinary tract infection, complicated. At this point, I will place him on a Rocephin given previous microbiology report. He did receive 30 cc per kg bolus. He does not meet for severe sepsis or septic shock. I do have a lactic acid out pending. I will start him on Rocephin. We will get blood cultures, which have been sent already and will continue to follow him closely. 2. Hematuria. I suspect this is probably secondary to the urinary tract infection. He is not having abdominal pain, so I do not think we need any CT imaging and he is actually improved with fluids and Tylenol. I think we will continue with the current medical regimen and will monitor him. Should he have any pain, certainly, we will have a low threshold for imaging. 3. Hypertension. Continue meds as prescribed. 4. 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 Continue meds as prescribed. 5. Anxiety. Continue supportive care and current meds. 6. Anemia. H and H is stable, we will follow. Hemoglobin 15.6, which is higher than his baseline. He is possibly heme concentrated. 7. Benign prostatic hypertrophy. Continue with Flomax. 8. DVT prophylaxis. Heparin subcutaneously has been ordered. 9. Code status. Full code. 10. Fluids, electrolytes, nutrition. He can have a regular diet. TIME SPENT: Time spent on the admission was 60 minutes, greater than half the time spent [id number] with the patient; other half time spent going over the plan of care with the patient and implementing plan of care. I did discuss the plan of care with my attending, Dr. Prater; she is in agreement. POOL COSTA, JUNE [id number]/[facility] #: [id number] ESTHELA
[2018-09-01 05:48] LABS: ABS Basophils 0 10^3/ul (0-0.2); ABS Eosinophils 0 10^3/ul (0-0.6); ABS Lymphocytes 1.2 10^3/ul (1.0-4.8); ABS Monocytes 1.3 10^3/ul (0-0.8); ABS Nucleated RBC 0 10^3/ul; Eosinophil % 0.2 %; Hematocrit 42 % (42-52); Hemoglobin 14.5 g/dl (14.0-18.0); Lymphocyte % 9.5 %; Mean Corpuscular HGB Conc 34 g/dl (31-36); Mean Corpuscular Hemoglobin 31 pg (27-31); Mean Corpuscular Volume 91 fL (80-94); Mean Platelet Volume 6.8 fL (7.4-10.4); Nucleated Red Blood Cells % 0; Platelet Count 167 10^3/ul (150-450); Red Blood Count 4.63 10^6/ul (4.00-5.40); Red Cell Distribution Width 14 % (10.5-15); White Blood Count 12.6 10^3/ul (3.5-10.8)
[2018-09-01 05:53] LABS: INR 1.26 (0.77-1.02)
[2018-09-01 05:54] LABS: Calcium 8.3 mg/dL (8.6-10.3)
[2018-09-01 06:00] LABS: BUN/Creatinine Ratio 12.3 (8-20); EGFR Non-African American 108.2 (>60)
[2018-09-01] MEDS ORDERED: carBAMazepine TAB(*) 200 MG PO SCH ×2 (08:00)
[2018-09-01] MEDS ORDERED: FLUoxetine CAP* 20 MG PO SCH (09:00)
[2018-09-01] MEDS ORDERED: Lactobacillus Acidophilus* 1 TAB PO SCH (09:00)
[2018-09-01] MEDS ORDERED: Docusate CAP* 100 MG PO SCH (09:00)
[2018-09-01] MEDS ORDERED: Metoprolol Succinate XL TAB* 100 MG PO SCH (09:00)
[2018-09-01] MEDS ORDERED: Ferrous Sulfate TAB* 325 MG PO SCH (09:00)
--- NOTE | 2018-09-01 10:43 | DS ---
CC: Eve Moody D.O. at [facility].* DISCHARGE SUMMARY: DATE OF ADMISSION: 08/31/18 DATE OF DISCHARGE: 09/01/18 PRIMARY CARE PROVIDER: Eve Moody DO at [facility]. PRINCIPAL DIAGNOSIS: Sepsis by sepsis 2 criteria secondary to urinary tract action. SECONDARY DIAGNOSES: 1. Impulse control disorder. 2. Hypertension. 3. Anxiety. 4. Benign prostatic hyperplasia. DISCHARGE MEDICATIONS: 1. Triple antibiotic ointment, apply topically t.i.d. p.r.n. skin irritation. 2. Zyprexa 5 mg p.o. b.i.d. 3. Metoprolol XL 100 mg p.o. daily. 4. Colace 100 mg p.o. b.i.d. 5. Cyclobenzaprine 5 mg p.o., q.h.s., p.r.n. spasm. 6. Hydroxyzine 25 mg p.o. 4 times daily p.r.n. anxiety. 7. Zantac 150 mg p.o. q.h.s. 8. Lactobacillus acidophilus 1 cap p.o. daily. 9. Ferrous sulfate 325 mg p.o. daily. 10. Dulcolax suppository 10 mg p.o. daily p.r.n. constipation. 11. Tegretol 400 mg p.o. q.h.s. 12. Senna 2 tabs p.o. q.h.s. p.r.n. insomnia. 13. Lactaid 3000 units p.o. t.i.d. a.c. 14. Fluoxetine 40 mg p.o. daily. 15. Percocet 5/325 1 tab p.o. q.4 hours p.r.n. pain. 16. Tegretol 200 mg p.o. b.i.d. 17. Tylenol 650 mg p.o. q.4 hours p.r.n. pain. 18. Flomax 0.4 mg p.o. q.h.s. 19. Bactrim DS 1 tab p.o. b.i.d. x13 doses. HOSPITAL COURSE: Mr. Bush is a 63-year-old male whom I know well from [facility], who was sent to the emergency room on 08/31/18 with concerns for hematuria. In the emergency room, the patient was found to be febrile with a temperature of 102. His urinalysis revealed leukocyte esterase, white blood cells and bacteria. It was felt the patient likely was suffering from sepsis secondary to urinary tract infection. The patient has had urinary tract infections in the past. The patient received a 30 mL per kilogram bolus per sepsis guidelines. He received ceftriaxone IV. The patient's white blood cell count was moderately elevated at 16.4 on admission and trended down to 12.6 on the day of discharge. The patient is no longer febrile. He is not tachycardic , tachypneic and his blood pressure is stable. At this point, it is felt the patient is stable to return back to [facility], continue on oral antibiotic therapy for presumed urinary tract infection with close followup of the urine culture. On the day of discharge, the patient is awake, alert, and oriented, sitting up in bed in no acute distress. His cardiac exam revealed a normal S1, S2 with a regular rate and rhythm. There is no lower extremity edema. His lungs are clear bilaterally. His abdomen is soft, nontender, and nondistended. FOLLOWUP CONCERN: The patient is being discharged to [facility] today . ACTIVITIES: Activity level is as tolerated. DIET: Regular. CONDITION ON DISCHARGE: Stable. TIME SPENT: Twenty-five minutes was spent discharging this patient. [id number]/[facility] #: [id number] ESTHELA
[2018-09-01 12:21] VITALS: BP 111/65
[2018-09-01] MEDS ORDERED: Famotidine TAB* 20 MG PO SCH (21:00)
[2018-09-01] MEDS ORDERED: Tamsulosin CAP* 0.4 MG PO SCH (21:00)
[2018-09-01] MEDS ORDERED: cefTRIAXone(*) 1 GM in NS 0.9% 50 ML* 50 ML IVPB SCH (22:00)
== END 2018-09-01 12:10 ==
LOC: ED 17:59 → MED 21:35 → INTOOBSV 21:35 → MED 23:31
PROVIDERS: ADMIT Pediatrics; ATTEND Hospitalist
DX: A41.9 Sepsis, unspecified organism (principal); N39.0 Urinary tract infection, site not specified; R31.9 Hematuria, unspecified; R30.0 Dysuria; I10 Essential (primary) hypertension; F41.9 Anxiety disorder, unspecified; N40.0 Benign prostatic hyperplasia without lower urinary tract symptoms; G31.84 Mild cognitive impairment of uncertain or unknown etiology; Z91.011 Allergy to milk products
CPT/HCPCS: 36415; 80048; 80053; 81003; 81015; 83605; 85025; 85610; 85730; 86140; 87040; 87077; 87086; 87186; 87641; 96372; 96374; 96375; 96376; 99283; A9270-GY; G0378; J0696; J1644

== ENCOUNTER 2018-09-24 17:54 | Emergency (ER) | payer MEDICARE, MEDICAID ==
--- NOTE | 2018-09-24 18:07 | ED ---
HPI Febrile Illness - HPI Summary HPI Summary: A 63 y/o M brought in by ambulance presents to ED for fever onset [employer]. At [facility], pt had a temp of 102.3 F. Associated sx: chest congestion, diaphoresis. The patient's roommate currently has influenza. There is concern the pt may also have a UTI as he's been having them previously. Pt was given Tylenol at approx. 1700. - History of Current Complaint Time Seen by Provider: 09/24/18 17:58 Hx Obtained From: Patient Onset/Duration: Started Hours Ago, Still Present, Resolved Timing: Constant Initial Severity: Mild Current Severity: Mild Pain Intensity: 0 Pain Scale Used: 0-10 Numeric Associated Signs and Symptoms: Diaphoresis, Other: - pos: chest congestion - Additional Pertinent History Primary Care Physician: SARINA - Allergy/Home Medications Allergies/Adverse Reactions: Allergies Allergy/AdvReac Type Severity Reaction Status Date / Time ondansetron Allergy Mild Unknown Verified 02/10/18 16:00 Reaction Details lactose Allergy GI Upset Verified 02/10/18 08:20 PMH/Surg Hx/FS Hx/Imm Hx Previously Healthy: No Endocrine/Hematology History: Reports: Hx Anemia - 2014 [place] AND IRON GOOD NOW Cardiovascular History: Reports: Hx Hypertension Denies: Hx Pacemaker/ICD GI History: Reports: Hx Gastroesophageal Reflux Disease, Hx Irritable Bowel, Hx Ulcer, Other GI Disorders - ANIETY AND LACTOSE INTOLERANCE History: Reports: Hx Benign Prostatic Hyperplasia Musculoskeletal History: Reports: Hx Arthritis, Hx Bursitis - LEFT ARM, Other Musculoskeletal History - SURGERY RECENT QUAD TENDON RIGHT KNEE YASSEEN Sensory History: Denies: Hx Contacts or Glasses, Hx Legally Blind, Hx Deafness, Hx Hearing Aid Opthamlomology History: Denies: Hx Contacts or Glasses, Hx Legally Blind Neurological History: Reports: Other Neuro Impairments/Disorders - ddd/ aniexty disorder Psychiatric History: Reports: Hx Anxiety, Hx Depression, Hx Community Mental Health Tx - lives in [place], Other Psychiatric Issues/Disorders - impulse control disorder Denies: Hx Panic Disorder - Surgical History Surgery Procedure, Year, and Place: Right hip replacement 1999 Hx Anesthesia Reactions: No - Immunization History Date of Influenza Vaccine: jul 2018 - Family History Known Family History: Positive: Cardiac Disease, Hypertension Negative: Diabetes - Social History Occupation: Unemployed Lives: [facility] Alcohol Use: None Hx Substance Use: No Substance Use Type: Reports: None Hx Tobacco Use: No Smoking Status (MU): Never Smoked Tobacco Review of Systems Positive: Fever, Skin Diaphoresis Positive: Other - pos: chest congestion All Other Systems Reviewed And Are Negative: Yes Physical Exam - Summary Physical Exam Summary: Appearance: The patient is well-nourished in no acute distress and in no acute pain. Skin: The skin is warm and diaphoretic and skin color reflects adequate perfusion. HEENT: The head is normocephalic and atraumatic. The pupils are equal and reactive. The conjunctivae are clear and without drainage. Nares are patent and without drainage. Mouth reveals moist mucous membranes and the throat is without erythema and exudate. The external ears are intact. The ear canals are patent and without drainage. The tympanic membranes are intact. Neck: the neck is supple with full range of motion and non-tender. There are no carotid bruits. There is no neck vein distension. Respiratory: Chest is non-tender. Lungs are clear to auscultation and breath sounds are symmetrical and equal. Cardiovascular: Heart is regular rate and rhythm. There is no murmur or rub auscultated. There is no peripheral edema and pulses are symmetrical and equal. Abdomen: The abdomen is soft and non-tender. There are normal bowel sounds heard in all four quadrants and there is no organomegaly palpated. Musculoskeletal: There is no back tenderness noted. Extremities are non-tender with full range of motion. There is good capillary refill. There is no peripheral edema or calf tenderness elicited. Neurological: Patient is alert and oriented to person, place and time. The patient has symmetrical motor strength in all four extremities. Cranial nerves are grossly intact. Deep tendon reflexes are symmetrical and equal in all four extremities. Psychiatric: The patient has an appropriate affect and does not exhibit any anxiety or depression. Triage Information Reviewed: Yes Vital Signs Reviewed: Yes Diagnostics - Laboratory Result Diagrams: 09/24/18 18:36 09/24/18 18:36 Lab Statement: Any lab studies that have been ordered have been reviewed, and results considered in the medical decision making process. Course/Dx - Course Course Of Treatment: Mr. Bush was sent in from the [facility] by Dr. Moody. He developed a fever and his roommate was known to have influenza. His influenza swab was negative and a urinalysis was positive for Escherichia coli. Dr. Moody feels that he usually recovers quickly from his frequent UTIs and that if he receives IV fluids and antibiotics he may very well be able to be discharged back to the [facility] this evening. He was diaphoretic on arrival but not toxic in appearance and had stable vital signs. - Diagnoses Provider Diagnoses: UTI (urinary tract infection) Discharge - Sign-Out/Discharge Documenting (check all that apply): Patient Departure - DC - Discharge Plan Condition: Stable Disposition: HOME Patient Education Materials: Urinary Tract Infection in Men (DC), Urinary Tract Infection in Older Adults (ED) Referrals: Jeanmarie Nesbitt MD [Primary Care Provider] - 2 Days Additional Instructions: Please return to the ED if you experience new or worsening symptoms. Follow up with your primary care provider in 2-3 days. - Billing Disposition and Condition Condition: STABLE Disposition: Home - Attestation Statements Document Initiated by Katianaibanahi: Yes Documenting Scribe: Rhonda Quan Provider For Whom Scribe is Documenting (Include Credential): Dr. Js Ly MD Scribe Attestation: Rhonda Mensah scrrobbieed for Dr. Js Ly MD on 09/25/18 at 1238. Scribe Documentation Reviewed: Yes Provider Attestation: The documentation as recorded by the Rhonda hilliard accurately reflects the service I personally performed and the decisions made by me, Dr. Js Ly MD Status of Scribe Document: Viewed
[2018-09-24] MEDS ORDERED: NS 0.9% 1000 ML* 2,000 ML IV ONE (18:12)
[2018-09-24] MEDS ORDERED: Levofloxacin 750 MG IVPREMIX(* 750 MG/150 ML BAG IVPB ONE (18:12)
[2018-09-24 18:44] LABS: ABS Basophils 0.1 10^3/ul (0-0.2); ABS Eosinophils 0.1 10^3/ul (0-0.6); ABS Monocytes 1.3 10^3/ul (0-0.8); ABS Neutrophils 14.7 10^3/ul (1.5-7.7); ABS Nucleated RBC 0 10^3/ul; Eosinophil % 0.4 %; Hematocrit 39 % (42-52); Hemoglobin 13.3 g/dl (14.0-18.0); Mean Corpuscular HGB Conc 34 g/dl (31-36); Mean Corpuscular Hemoglobin 31 pg (27-31); Mean Corpuscular Volume 90 fL (80-94); Mean Platelet Volume 6.6 fL (7.4-10.4); Nucleated Red Blood Cells % 0; Platelet Count 219 10^3/ul (150-450); Red Blood Count 4.35 10^6/ul (4.00-5.40); Red Cell Distribution Width 13 % (10.5-15); White Blood Count 17.2 10^3/ul (3.5-10.8)
[2018-09-24 19:01] LABS: Albumin 3.6 g/dL (3.2-5.2); Albumin/Globulin Ratio 1.4 (1-3); BUN/Creatinine Ratio 17.8 (8-20); C Reactive Protein 176.63 mg/L (<8.01); Calcium 8.6 mg/dL (8.6-10.3); EGFR Non-African American 108.2 (>60); Globulin 2.5 g/dL (2-4); Potassium 3.9 mmol/L (3.5-5.0); Total Bilirubin 0.5 mg/dL (0.2-1.0); Total Protein 6.1 g/dL (6.4-8.9)
[2018-09-24 22:31] VITALS: BP 112/63
== END 2018-09-24 22:34 | disposition home or self-care (01) ==
LOC: ED 17:54
DX: N39.0 Urinary tract infection, site not specified (principal); B96.20 Unspecified Escherichia coli [E. coli] as the cause of diseases classified elsewhere; Z96.641 Presence of right artificial hip joint; Z88.8 Allergy status to other drugs, medicaments and biological substances
CPT/HCPCS: 36415; 80053; 85025; 86140; 96365; 99284